=== PATIENT | female | born 1970 | race Caucasian/White ===

== ENCOUNTER 2016-05-31 17:35 | Emergency (ER) | payer OTHER ==
[2016-05-31] MEDS ORDERED: IBUPROFEN 600 MG TABLET (FP) PO ONE (18:36)
[2016-05-31 18:39] VITALS: BP 125/80; PULSE 107; TEMP 102.2; BMI 28.0
[2016-05-31] MEDS ORDERED: ACETAMINOPHEN 325 MG TABLET (FP) PO ONE (18:50)
--- NOTE | 2016-05-31 18:56 | PDOC ---
[id number] 4d COLD SYMPTOMS Time Seen by Provider: 05/31/16 18:36 History Source: Patient Exam Limitations: No Limitations - History of Present Illness Initial Comments: 05/31/16 18:52 45 yr female with body aches fever for 4 days, headache. Pt denies sore throat, denies abd pain or nausea, no diarrhea. Pt has history of ESBL urine infection. Pt states fever 102 not improving. Pt with dry cough . Pt has history of HTN, DVT with IVC filter in place. Pt denies leg pain or swelling. Pt denies flank or back pain 05/31/16 18:53 05/31/16 19:48 05/31/16 19:51 Timing/Duration: reports: week Severity: reports: moderate Episode Description: 3-4 days fever 102 body aches Possible Cause: Yes: occasional episodes Past History - Past Medical History Allergies/Adverse Reactions: Allergies Allergy/AdvReac Type Severity Reaction Status Date / Time No Known Allergies Allergy Verified 05/31/16 17:55 Home Medications: Ambulatory Orders Amlodipine Besylate [Norvasc -] 5 mg PO DAILY 04/07/16 Furosemide [Lasix -] 40 mg PO DAILY 04/07/16 Omeprazole 40 mg PO DAILY 04/07/16 Acetaminophen [Tylenol .Regular Strength -] 650 mg PO Q6H PRN #0 tablet Apixaban [Eliquis] 5 mg PO BID #60 tablet 04/14/16 Apixaban [Eliquis] 10 mg PO BID #4 tablet 04/14/16 Oxycodone HCl [Roxicodone -] 5 mg PO Q6H PRN #20 tablet MDD 20mg 04/14/16 Polyethylene Glycol 3350 [Miralax 119 gm Btl -] 17 gm PO DAILY #1 bottle Sennosides [Senna -] 2 tab PO HS #30 tablet 04/14/16 Nitrofurantoin Monohyd/M-Cryst [Macrobid -] 100 mg PO BID #14 capsule 05/31/16 GI Disorders: Yes (gastritis) HTN: Yes Other medical history: DVT - Surgical History Abdominal Surgery: Yes (liposuction, gastric bypass) - Family Disease History Comment:: 05/31/16 19:52 none relevant - Psycho/Social/Smoking Cessation Hx Suicidal Ideation: No Smoking History: Never smoked Hx Alcohol Use: No Respiratory Specific PMHX - Complaint Specific PMHX Angina: No Bronchitis: No Pneumonia: No Pulmonary Embolus: No TB (Tuberculosis): No Review of Systems - Review of Systems Able to Perform ROS?: Yes Is the patient limited Croatian proficient: No Constitutional: Yes: Symptoms Reported HEENTM: Yes: Symptoms Reported Respiratory: Yes: Symptoms reported. No: Hemoptysis Cardiac (ROS): No: Symptoms Reported ABD/GI: No: Symptoms Reported : No: Symptoms Reported Musculoskeletal: Yes: Symptoms Reported, See HPI Integumentary: No: Symptoms Reported *Physical Exam - Vital Signs Last Vital Signs Temp Pulse Resp BP Pulse Ox 102.2 F H 107 H 16 125/80 99 05/31/16 17:56 05/31/16 17:56 05/31/16 17:56 05/31/16 17:56 05/31/16 17:56 - Physical Exam General Appearance: Yes: Nourished, Appropriately Dressed HEENT: positive: EOMI, DEMAR, TMs Normal, Pharynx Normal, TM Erythema ( bilaterally ) Neck: positive: Supple. negative: Lymphadenopathy (R), Lymphadenopathy (L) Respiratory/Chest: positive: Lungs Clear, Normal Breath Sounds. negative: Chest Tender Cardiovascular: positive: Regular Rhythm, Regular Rate Gastrointestinal/Abdominal: positive: Normal Bowel Sounds, Soft Musculoskeletal: positive: Normal Inspection Extremity: positive: Normal Capillary Refill, Normal Inspection, Normal Range of Motion Integumentary: positive: Normal Color, Dry, Warm Neurologic: positive: Fully Oriented, Alert, Normal Mood/Affect, Normal Response , Motor Strength 5/5 ED Treatment Course - LABORATORY CBC & Chemistry Diagram: 05/31/16 19:30 05/31/16 19:30 - RADIOLOGY Radiology Studies Ordered: Category Date Time Status CHEST PA & LAT [RAD] Stat Radiology 05/31/16 18:50 Ordered Medical Decision Making - Medical Decision Making 05/31/16 18:55 cc: fever for 4 days body aches , chills, congestion will r/o flu labs, CXR , Urine Ekg done in triage NSR signed by Dr. Mackay possible left atria enlargement, no BRODIE 05/31/16 19:39 will get US to r/o DVT right leg urine positive will treat with zosyn here in ER (previous culture reviewed) 05/31/16 19:53 02/08/17 20:11 pt signed out to Mercedez Guy for continuation of care. pending labs, US, pt status *DC/Admit/Observation/Transfer Diagnosis at time of Disposition: Urinary tract infection Qualifiers: Urinary tract infection type: site unspecified Hematuria presence: without hematuria Qualified Code(s): N39.0 - Urinary tract infection, site not specified Dvt femoral (deep venous thrombosis) Qualifiers: Laterality: right Chronicity: chronic Qualified Code(s): I82.511 - Chronic embolism and thrombosis of right femoral vein - Discharge Dispostion Disposition: HOME Condition at time of disposition: Stable - Prescriptions Prescriptions: Nitrofurantoin Monohyd/M-Cryst [Macrobid -] 100 mg PO BID #14 capsule - Referrals Referrals: Pradeep Overton MD [Primary Care Provider] - - Patient Instructions Printed Discharge Instructions: DI for Deep Vein Thrombosis, DI for Urinary Tract Infection (UTI) Additional Instructions: Please continue using your Lovenox injections. Please take medications as prescribed. As discussed please bring the ultrasound report to your physician for further discussion of your DVT therapy. If you experience shortness of breath, chest pain, headache, palpitations, or any new or worsening symptoms please return to the ER immediately.
[2016-05-31] MEDS ORDERED: ACETAMINOPHEN 325 MG TABLET (FP) ONE (19:04)
[2016-05-31 19:29] LABS: URINE APPEARANCE CLEAR; URINE BILIRUBIN NEGATIVE (NEGATIVE); URINE COLOR LTYELLOW; URINE GLUCOSE (UA) NEGATIVE (NEGATIVE); URINE KETONE NEGATIVE (NEGATIVE); URINE NITRITE NEGATIVE (NEGATIVE); URINE UROBILINOGEN 4.0 E.U/dl E.U./dl (0.2-1.0)
[2016-05-31 19:30] LABS: URINE BLOOD 1+ (NEGATIVE); URINE PROTEIN 1+ (NEGATIVE)
[2016-05-31 19:31] LABS: URINE LEUK ESTERASE 2+ (NEGATIVE)
[2016-05-31 19:39] LABS: URINE BACTERIA MODERATE /hpf (NONE SEEN); URINE MUCUS RARE; URINE RBC 1 /hpf (0-3); URINE WBC 65 /hpf (3-5); YEAST RARE
[2016-05-31 19:41] LABS: BASOPHIL 0.6 % (0-2.0); MCH 25.4 pg (25.7-33.7); MCHC 32.6 g/dl (32.0-36.0); MEAN CELL VOLUME 77.8 fl (80-96); MEAN PLT VOLUME 8.1 fl (7.5-11.1); PLATELET COUNT 218 K/MM3 (134-434); RDW 17.6 % (11.6-15.6)
[2016-05-31] MEDS ORDERED: NITROFURANTOIN MACROCRYSTAL 50 MG CAPSULE (FP) PO SCH (19:45)
[2016-05-31 19:56] LABS: INR 1.14 (0.82-1.09); PROTHROMBIN TIME (PATIENT) 12.6 SEC (9.98-11.88)
[2016-05-31 19:58] LABS: ACTIVATED PTT 36.9 SECONDS (26.9-34.4)
[2016-05-31] MEDS ORDERED: SODIUM CHLORIDE 1,000 ML IV STA (20:10)
[2016-05-31] MEDS ORDERED: PIPERACILLIN/TAZOB 4.5 GM/100 ML PRE-DOCKED IVPB ONE (20:11)
[2016-05-31 20:15] LABS: ALBUMIN 3.3 g/dl (3.4-5.0); ANION GAP 9 (8-16); BILIRUBIN,TOTAL 0.5 mg/dL (0.2-1.0); CO2 24 mmol/L (21-32); CREATININE 1.3 mg/dL (0.55-1.02); GLUCOSE,RANDOM 113 mg/dL (74-106); SGOT/AST 10 U/L (15-37); SGPT/ALT 20 U/L (12-78); TOT PROT 7.3 g/dl (6.4-8.2)
[2016-05-31 20:18] LABS: ALK PHOS 79 U/L (45-117); TROPONIN I < 0.02 ng/ml (0.00-0.05)
[2016-05-31] MEDS ORDERED: ONDANSETRON *ODT* 4 MG TABLET SL ONE (21:45)
[2016-05-31] MEDS ORDERED: ONDANSETRON *ODT* 4 MG TABLET ONE (21:51)
--- NOTE | 2016-05-31 22:22 | PDOC ---
*Physical Exam - Vital Signs Last Vital Signs Temp Pulse Resp BP Pulse Ox 102.2 F H 107 H 16 125/80 99 05/31/16 17:56 05/31/16 17:56 05/31/16 17:56 05/31/16 17:56 05/31/16 17:56 - Physical Exam Comments: 05/31/16 22:16 Sign-out received from outgoing ER provider Isael. Pt interviewed and examined. Ancillary studies reviewed. Zosyn administered. Patient felt nauseous. Zofran 4 mg ODT given. Vascular study indicates right femoral DVT. Discussed case with ED attending Marito. Patient is already on Lovenox. Will discharge to home with close follow up with PMD for further evaluation of anticoagulant therapy. Kidney ultrasound negative. ED Treatment Course - LABORATORY CBC & Chemistry Diagram: 05/31/16 19:30 05/31/16 19:30 - ADDITIONAL ORDERS Additional order review: Laboratory Results 05/31/16 05/31/16 05/31/16 19:30 19:30 19:30 INR 1.14 PTT (Actin FS) 36.9 H Sodium 134 L Potassium 3.5 Chloride 101 Carbon Dioxide 24 Anion Gap 9 BUN 7 Creatinine 1.3 H D Creat Clearance w eGFR 44.70 Random Glucose 113 H D Lactic Acid 1.570 Calcium 9.0 Total Bilirubin 0.5 D AST 10 L D ALT 20 D Alkaline Phosphatase 79 D Creatine Kinase 45 Troponin I < 0.02 Total Protein 7.3 Albumin 3.3 L D Urine Color Urine Appearance Urine pH Ur Specific [place] Urine Protein Urine Glucose (UA) Urine Ketones Urine Blood Urine Nitrite Urine Bilirubin Urine Urobilinogen Ur Leukocyte Esterase Urine RBC Urine WBC Ur Epithelial Cells Urine Bacteria Urine Mucus Urine Yeast Urine HCG, Qual 05/31/16 19:10 INR PTT (Actin FS) Sodium Potassium Chloride Carbon Dioxide Anion Gap BUN Creatinine Creat Clearance w eGFR Random Glucose Lactic Acid Calcium Total Bilirubin AST ALT Alkaline Phosphatase Creatine Kinase Troponin I Total Protein Albumin Urine Color Ltyellow Urine Appearance Clear Urine pH 6.0 Ur Specific [place] 1.011 Urine Protein 1+ H Urine Glucose (UA) Negative Urine Ketones Negative Urine Blood 1+ H Urine Nitrite Negative Urine Bilirubin Negative Urine Urobilinogen 4.0 e.u/dl H Ur Leukocyte Esterase 2+ H Urine RBC 1 Urine WBC 65 Ur Epithelial Cells Rare Urine Bacteria Moderate Urine Mucus Rare Urine Yeast Rare Urine HCG, Qual Negative 05/31/16 18:49 Influenza Types A,B Antigen (ALEXI) - Final Nasopharyngeal Swab - Final 05/31/16 19:30 RBC 4.27 D MCV 77.8 L MCHC 32.6 RDW 17.6 H MPV 8.1 Neutrophils % 86.0 H D Lymphocytes % 7.2 L D Monocytes % 6.2 Eosinophils % 0.0 D Basophils % 0.6 - Medications Given in the ED: ED Medications Discontinued Medications Generic Name Dose Route Start Last Admin Trade Name Nixon PRN Reason Stop Dose Admin Acetaminophen 975 mg 05/31/16 18:50 05/31/16 19:07 Tylenol - PO 05/31/16 18:51 975 mg ONCE ONE Administration Sodium Chloride 1,000 mls @ 1,000 mls/hr 05/31/16 20:10 05/31/16 21:12 Normal Saline - IV 05/31/16 21:09 1,000 mls/hr ASDIR STA Administration Ibuprofen 800 mg 05/31/16 18:36 05/31/16 19:07 Motrin - PO 05/31/16 18:37 Not Given ONCE ONE Ondansetron HCl 4 mg 05/31/16 21:45 05/31/16 21:53 Zofran Odt - SL 05/31/16 21:46 4 mg ONCE ONE Administration Piperacillin Sod/Tazobactam Sod 4.5 gm 05/31/16 20:11 05/31/16 21:51 Zosyn 4.5gm Ivpb (Pre-Docked) IVPB 05/31/16 20:12 4.5 gm ONCE ONE Administration *DC/Admit/Observation/Transfer Diagnosis at time of Disposition: Urinary tract infection Qualifiers: Urinary tract infection type: site unspecified Hematuria presence: without hematuria Qualified Code(s): N39.0 - Urinary tract infection, site not specified Dvt femoral (deep venous thrombosis) Qualifiers: Laterality: right Chronicity: chronic Qualified Code(s): I82.511 - Chronic embolism and thrombosis of right femoral vein - Discharge Dispostion Disposition: HOME Condition at time of disposition: Stable Admit: No - Prescriptions Prescriptions: Nitrofurantoin Monohyd/M-Cryst [Macrobid -] 100 mg PO BID #14 capsule - Referrals Referrals: Pradeep Overton MD [Primary Care Provider] - - Patient Instructions Printed Discharge Instructions: DI for Urinary Tract Infection (UTI), DI for Deep Vein Thrombosis Additional Instructions: Please continue using your Lovenox injections. Please take medications as prescribed. As discussed please bring the ultrasound report to your physician for further discussion of your DVT therapy. If you experience shortness of breath, chest pain, headache, palpitations, or any new or worsening symptoms please return to the ER immediately.
--- NOTE | 2016-06-01 10:33 | EKG ---
Test Reason : Blood Pressure : / mmHG Vent. Rate : 103 BPM Atrial Rate : 103 BPM P-R Int : 144 ms QRS Dur : 074 ms QT Int : 318 ms P-R-T Axes : 022 000 031 degrees QTc Int : 416 ms SINUS TACHYCARDIA POSSIBLE LEFT ATRIAL ENLARGEMENT BORDERLINE ECG WHEN COMPARED WITH ECG OF 08-APR-2016 00:34, NO SIGNIFICANT CHANGE WAS FOUND Confirmed by HIEU ANDREWS MD ([id number]) on 06/01/2016 10:32:49 AM Referred By: Confirmed By:HIEU ANDREWS MD
== END 2016-05-31 22:28 | disposition home or self-care (01) ==
LOC: JERFT 17:35 → JER 17:35 → JERFT 22:28
PROC: 3E03329 Introduction of Other Anti-infective into Peripheral Vein, Percutaneous Approach (ICD-10-PCS; principal; 2016-05-31)
PROC: 3E0337Z Introduction of Electrolytic and Water Balance Substance into Peripheral Vein, Percutaneous Approach (ICD-10-PCS; 2016-05-31)
DX: N39.0 Urinary tract infection, site not specified (principal); I82.511 Chronic embolism and thrombosis of right femoral vein; K29.70 Gastritis, unspecified, without bleeding; I10 Essential (primary) hypertension
CPT/HCPCS: 36415; 71020-TC; 76775-TC; 80053; 81003; 81015; 82550; 83605; 84484; 84703; 85025; 85610; 85730; 87040; 87086; 87186; 87804; 93005; 93010; 93971-TC; 96361; 96374; 99281-25

== ENCOUNTER 2016-09-07 16:06 | Inpatient (IN) | payer OTHER ==
[2016-09-07 20:11] LABS: BASOPHIL 0.4 % (0-2.0); EOSINOPHIL 0.1 % (0-4.5); MCH 27.3 pg (25.7-33.7); MCHC 32.6 g/dl (32.0-36.0); MEAN CELL VOLUME 83.7 fl (80-96); MEAN PLT VOLUME 8.5 fl (7.5-11.1); PLATELET COUNT 246 K/MM3 (134-434); RDW 17.4 % (11.6-15.6); WHITE BLOOD COUNT 15.2 K/mm3 (4.0-10.0)
[2016-09-07] MEDS ORDERED: IMIPENEM/CILASTATIN SODIUM 500 MG in SODIUM CHLORIDE 100 ML IV ONE (20:17)
--- NOTE | 2016-09-07 20:17 | PDOC ---
History of Present Illness - History of Present Illness Initial Comments: 09/07/16 20:19 46 yo F with h/o CHF, HTN on amlodipine an CHF here c/o burning on urination dysuria and fever 105 pt was seen in ED 2 days ago and given macrobid for UTI. has been taking as prescribed. no n/v no other complaints. pt is allergic to penicillin causes hives. no other complaints. does have mild sob. 09/07/16 20:20 <Janeen Cordero - Last Filed: 09/07/16 23:09> <Elayne Aceves - Last Filed: 09/08/16 00:39> - General Chief Complaint: SIRS, Suspected/Possible Stated Complaint: FEVER Past History - Past Medical History GI Disorders: Yes (gastritis) HTN: Yes - Surgical History Abdominal Surgery: Yes (liposuction, gastric bypass) - Immunization History Immunization Up to Date: Yes - Psycho/Social/Smoking Cessation Hx Suicidal Ideation: No Smoking History: Never smoked Hx Alcohol Use: No Drug/Substance Use Hx: No <Janeen Cordero - Last Filed: 09/07/16 23:09> <Elayne Aceves - Last Filed: 09/08/16 00:39> - Past Medical History Allergies/Adverse Reactions: Allergies Allergy/AdvReac Type Severity Reaction Status Date / Time Penicillins Allergy Verified 09/07/16 16:37 Home Medications: Ambulatory Orders Amlodipine Besylate [Norvasc -] 5 mg PO DAILY 04/07/16 Furosemide [Lasix -] 20 mg PO DAILY 04/07/16 Omeprazole 40 mg PO DAILY 04/07/16 Apixaban [Eliquis] 5 mg PO DAILY 09/07/16 Nitrofurantoin Monohyd/M-Cryst [Macrobid -] 100 mg PO DAILY 09/07/16 Review of Systems - Review of Systems Constitutional: Yes: Chills, Fever. No: Loss of Appetite, Night Sweats, Weakness Respiratory: Yes: Shortness of Breath. No: Cough Cardiac (ROS): No: Chest Pain, Edema ABD/GI: No: Abdominal Distended : Yes: Dysuria, Frequency, Flank Pain Musculoskeletal: Yes: Back Pain Neurological: No: See HPI, Headache, Numbness All Other Systems: Reviewed and Negative <Janeen Cordero - Last Filed: 09/07/16 23:09> *Physical Exam - Vital Signs Last Vital Signs Temp Pulse Resp BP Pulse Ox 99.5 F 96 H 20 123/83 98 09/07/16 16:37 09/07/16 16:37 09/07/16 16:37 09/07/16 16:37 09/07/16 19:59 - Physical Exam General Appearance: Yes: Nourished HEENT: positive: DEMAR, Normal ENT Inspection Neck: positive: Trachea midline. negative: Tender Respiratory/Chest: positive: Lungs Clear, Normal Breath Sounds Cardiovascular: positive: Regular Rhythm, Regular Rate, S1, S2. negative: Edema , JVD, Murmur Gastrointestinal/Abdominal: positive: Normal Bowel Sounds, Tender, Other ( suprapubic ttp) Musculoskeletal: positive: CVA Tenderness Extremity: positive: Normal Capillary Refill, Normal Inspection Integumentary: positive: Normal Color, Dry, Warm Neurologic: positive: Fully Oriented, Alert, Normal Mood/Affect Deep Tendon Reflexes: Ankle (L): 2+, Ankle (R): 2+ <Janeen Cordero - Last Filed: 09/07/16 23:09> - Vital Signs Last Vital Signs Temp Pulse Resp BP Pulse Ox 100.5 F H 78 16 117/76 99 09/07/16 23:52 09/07/16 23:52 09/07/16 23:52 09/07/16 23:52 09/07/16 23:52 <Elayne Aceves - Last Filed: 09/08/16 00:39> Heart Score/ECG Review #1 09/08/16 00:39 Normal sinus rhythm at 81 bpm Normal ECG <Elayne Aceves - Last Filed: 09/08/16 00:39> ED Treatment Course - LABORATORY CBC & Chemistry Diagram: 09/07/16 19:40 09/07/16 19:40 <Janeen Cordero - Last Filed: 09/07/16 23:09> - LABORATORY CBC & Chemistry Diagram: 09/07/16 19:40 09/07/16 19:40 - ADDITIONAL ORDERS Additional order review: Laboratory Results 09/07/16 09/07/16 09/07/16 21:07 19:40 19:01 Sodium 136 Potassium 3.3 L Chloride 100 Carbon Dioxide 27 Anion Gap 9 BUN 7 Creatinine 1.4 H Creat Clearance w eGFR 40.85 Random Glucose 111 H Lactic Acid 0.876 Calcium 8.4 L Total Bilirubin 0.5 AST 16 D ALT 37 D Alkaline Phosphatase 130 H D Total Protein 6.8 Albumin 2.8 L Urine Color Urine Appearance Urine pH Ur Specific [place] Urine Protein Urine Glucose (UA) Urine Ketones Urine Blood Urine Nitrite Urine Bilirubin Urine Urobilinogen Ur Leukocyte Esterase Urine RBC Urine WBC Ur Epithelial Cells Urine Bacteria Urine Mucus Urine HCG, Qual Negative 09/07/16 19:01 Sodium Potassium Chloride Carbon Dioxide Anion Gap BUN Creatinine Creat Clearance w eGFR Random Glucose Lactic Acid Calcium Total Bilirubin AST ALT Alkaline Phosphatase Total Protein Albumin Urine Color Straw Urine Appearance Clear Urine pH 7.0 Ur Specific [place] 1.010 Urine Protein 1+ H Urine Glucose (UA) Negative Urine Ketones Negative Urine Blood 2+ H Urine Nitrite Negative Urine Bilirubin Negative Urine Urobilinogen 2.0 e.u/dl H Ur Leukocyte Esterase Trace H D Urine RBC 1 Urine WBC 5 Ur Epithelial Cells Rare Urine Bacteria Rare Urine Mucus Rare Urine HCG, Qual 09/07/16 19:40 RBC 4.50 MCV 83.7 MCHC 32.6 RDW 17.4 H MPV 8.5 Neutrophils % 76.0 Lymphocytes % 6.4 L Monocytes % 17.1 H D Eosinophils % 0.1 D Basophils % 0.4 - Medications Given in the ED: ED Medications Discontinued Medications Generic Name Dose Route Start Last Admin Trade Name Nixon PRN Reason Stop Dose Admin Acetaminophen 1,000 mg 09/07/16 22:35 09/07/16 22:35 Ofirmev Injection - IVPB 09/07/16 22:36 1,000 mg ONCE ONE Administration Imipenem/Cilastatin Sodium 500 100 mls @ 100 mls/hr 09/07/16 20:17 09/07/16 20: 17 mg/ Sodium Chloride IV 09/07/16 21:16 100 mls/hr ONCE ONE Administration Protocol <Elayne Aceves - Last Filed: 09/08/16 00:39> Medical Decision Making - Medical Decision Making 09/07/16 20:14 46 yo F wit h/o recent UTI, on macrobid for 48 hours, here with persistant uti symtpoms, dysuria and frequency. did have fever today 105, no n/v no vaginal discharge. review of culture pt is resistant to macrobid. and several other antiobiotics. on exam awake alert, lungs clear. heart regular no m/r/g. abd soft no rebound or guarding mild suprapubic ttp. plan: r/o sepsis, bactermia, pt will have to be admitted for high urinary resistance. plan ua cultrures cbc cmp culturesl <Janeen Cordero - Last Filed: 09/07/16 23:09> *DC/Admit/Observation/Transfer - Discharge Dispostion Admit: Yes <Janeen Cordero - Last Filed: 09/07/16 23:09> <Elayne Aceves - Last Filed: 09/08/16 00:39> Diagnosis at time of Disposition: Sepsis - Referrals
[2016-09-07 20:44] LABS: ALBUMIN 2.8 g/dl (3.4-5.0); BILIRUBIN,TOTAL 0.5 mg/dL (0.2-1.0); CALCIUM 8.4 mg/dL (8.5-10.1); COCKROFT - GAULT 67.9235; CREATININE 1.4 mg/dL (0.55-1.02); TOT PROT 6.8 g/dl (6.4-8.2)
[2016-09-07 20:54] LABS: URINE APPEARANCE CLEAR; URINE BILIRUBIN NEGATIVE (NEGATIVE); URINE COLOR STRAW; URINE GLUCOSE (UA) NEGATIVE (NEGATIVE); URINE KETONE NEGATIVE (NEGATIVE); URINE NITRITE NEGATIVE (NEGATIVE); URINE UROBILINOGEN 2.0 E.U/dl E.U./dl (0.2-1.0)
--- NOTE | 2016-09-07 21:04 | PN ---
<Nina Vickers - Last Filed: 09/07/16 21:04> Teaching Attending Note Name of Resident: Alberto Lovell <Kathrin Mathews - Last Filed: 09/20/16 21:15> Teaching Attending Note ATTENDING PHYSICIAN STATEMENT I saw and evaluated the patient. I reviewed the resident's note and discussed the case with the resident. I agree with the resident's findings and plan as documented. SUBJECTIVE: 46 yo F with PMhx of recent UTI (on Macrobid for 48 hours) who presents with dysuria, and fever (Tmax 105). Patient complains of increased frequency and increased discomfort with associated slight back pain. Patient was seen in the ED 2 days ago and was evaluated for the same complaints. Patient was treated with Macrobid however returned due to progressively worsening dysuria. As per Chart, previous UA on 09/05/2016 revealed ESBL. PMHx:CHF, HTN on amlodipine, Gastritis PSHx: Liposuction and Gastric bypass Social hx: None Allergies: Penicillins OBJECTIVE: Last Vital Signs Temp Pulse Resp BP Pulse Ox 98.8 F 64 16 109/66 99 09/08/16 00:48 09/08/16 00:48 09/08/16 03:00 09/08/16 00:48 09/08/16 03:00 GENERAL: Awake, alert, and fully oriented, in no acute distress HEENT: Atraumatic. PERRLA, EOMI. Moist mucosa. No JVD LUNGS: No distress, speaks full sentences, clear to auscultation bilaterally HEART: Regular rate and rhythm, normal S1 and S2, no murmurs, rubs or gallops, peripheral pulses normal and equal bilaterally. ABDOMEN: Soft, nontender, normoactive bowel sounds. No guarding, no rebound. No masses EXTREMITIES: Normal inspection, Normal range of motion, no edema. No clubbing or cyanosis. NEUROLOGICAL: Cranial nerves II through XII grossly intact. Normal speech, normal gait, no focal sensorimotor deficits SKIN: Warm, Dry, normal turgor, no rashes or lesions noted. CBCD WBC 15.2 K/mm3 (4.0-10.0) H D 09/07/16 19:40 RBC 4.50 M/mm3 (3.60-5.2) 09/07/16 19:40 Hgb 12.3 GM/dL (10.7-15.3) D 09/07/16 19:40 Hct 37.6 % (32.4-45.2) 09/07/16 19:40 MCV 83.7 fl (80-96) 09/07/16 19:40 MCHC 32.6 g/dl (32.0-36.0) 09/07/16 19:40 RDW 17.4 % (11.6-15.6) H 09/07/16 19:40 Plt Count 246 K/MM3 (134-434) 09/07/16 19:40 MPV 8.5 fl (7.5-11.1) 09/07/16 19:40 CMP Sodium 136 mmol/L (136-145) 09/07/16 19:40 Potassium 3.3 mmol/L (3.5-5.1) L 09/07/16 19:40 Chloride 100 mmol/L (98-107) 09/07/16 19:40 Carbon Dioxide 27 mmol/L (21-32) 09/07/16 19:40 Anion Gap 9 (8-16) 09/07/16 19:40 BUN 7 mg/dL (7-18) 09/07/16 19:40 Creatinine 1.4 mg/dL (0.55-1.02) H 09/07/16 19:40 Creat Clearance w eGFR 40.85 (>60) 09/07/16 19:40 Calcium 8.4 mg/dL (8.5-10.1) L 09/07/16 19:40 Total Bilirubin 0.5 mg/dL (0.2-1.0) 09/07/16 19:40 AST 16 U/L (15-37) D 09/07/16 19:40 ALT 37 U/L (12-78) D 09/07/16 19:40 Alkaline Phosphatase 130 U/L (45-117) H D 09/07/16 19:40 Total Protein 6.8 g/dl (6.4-8.2) 09/07/16 19:40 Albumin 2.8 g/dl (3.4-5.0) L 09/07/16 19:40 ASSESSMENT AND PLAN: Admitted for Sepsis Secondary to MDR pyelonephritis/UTI Pt given ertapenem in the ED Continue with ertapenem Follow ID consult in the AM IVF Zofran PRN for nausea Continue home meds Contact precaution for ESBL in urine. Documentation prepared by Kathrin Mathews, acting as medical billing specialist for Nina Vickers MD.
[2016-09-07 21:22] LABS: URINE BLOOD 2+ (NEGATIVE); URINE LEUK ESTERASE TRACE (NEGATIVE); URINE PROTEIN 1+ (NEGATIVE)
[2016-09-07 22:18] LABS: URINE BACTERIA RARE /hpf (NONE SEEN); URINE MUCUS RARE; URINE RBC 1 /hpf (0-3); URINE WBC 5 /hpf (3-5)
[2016-09-07] MEDS ORDERED: ACETAMINOPHEN 1000 MG/100 ML VIAL (NON FORMULARY) IVPB ONE (22:35)
[2016-09-07] MEDS ORDERED: ACETAMINOPHEN INJECTION 100 ML IVPB ONE (22:47)
[2016-09-08] MEDS ORDERED: POTASSIUM CHLORIDE ORAL LIQUID 20 MEQ/15 ML PO ONE (00:40)
[2016-09-08] MEDS ORDERED: ONDANSETRON 4 MG/2 ML VIAL IVPUSH PRN (00:51)
--- NOTE | 2016-09-08 00:53 | HP ---
CHIEF COMPLAINT: Fever PCP: Dr Pradeep Lee HISTORY OF PRESENT ILLNESS: 46 year old female with pmh of HTN, CHF, Gastritis, DVT right lower ext in 2015 on eliquis, IVC filter , Recurrent UTI, ESBL UTI, recent discharged from ED 2 days ago for UTI with Macrobid now presents for for unresolving symptoms and fever. ON Sunday, the patient started to have fever, chills, fatigue, weakness, myalgia, arthralgia, nausea, vomiting , anorexia, dizziness , headache , non productive cough. yesterday, patient started to have diffuse chest pain, tightness, pressure, 8/10 intermittent, lasting 2mn, non radiating, not changed by position, deep breath or cough, but per daughter it is increased by deep breath and cough. Pt vomiting once today, food like fluid, tinged of blood, non bilious fluid. Denies abdominal pain today but has severe suprapubic pain, cramping 2 days ago. Pt denies dysuria but has increase frequency and urgency, no hematuria, no odor, no vaginal bleed or discharge. Pt aslo complained of chronic orthopnea, dyspnea on exertion even walking up on flight of stairs and occasional lower extremity edema but does not have these symptoms right now. ER course was notable for: (1) WBC 15, Blood culture, urine culture (2) Imipinem (3) CXR Recent Travel: none PAST MEDICAL HISTORY: HTN, CHF, Gastritis, DVT right lower ext in 03/2016 on eliquis, IVC filter, Recurrent UTI, ESBL UTI PAST SURGICAL HISTORY: Gastric Bypass, IVC filter, Cometic surgery, Neck surgery, 3 C sections, left foot surgery Social History: Smoking: none Alcohol:none Drugs: None Lives with daughter Family History: Mother : stomach cancer, CHF, HTN Allergies Penicillins Allergy (Verified 09/07/16 16:37) HOME MEDICATIONS: Home Medications Medication Instructions Recorded Amlodipine Besylate [Norvasc -] 5 mg PO DAILY 04/07/16 Furosemide [Lasix -] 20 mg PO DAILY 04/07/16 Omeprazole 40 mg PO DAILY 04/07/16 Apixaban [Eliquis] 5 mg PO DAILY 09/07/16 Nitrofurantoin Monohyd/M-Cryst 100 mg PO DAILY 09/07/16 [Macrobid -] REVIEW OF SYSTEMS CONSTITUTIONAL: fever, chills, diaphoresis, generalized weakness, malaise, loss of appetite Absent:weight change HEENT: Absent: rhinorrhea, nasal congestion, throat pain, throat swelling, difficulty swallowing, mouth swelling, ear pain, eye pain, visual changes CARDIOVASCULAR: chest pain Absent: , syncope, palpitations, irregular heart rate, lightheadedness, peripheral edema RESPIRATORY: cough, Absent: shortness of breath, dyspnea with exertion, orthopnea, wheezing, stridor , hemoptysis GASTROINTESTINAL: supra pubic abdominal pain, nausea, vomiting, constipation Absent: , abdominal distension, , diarrhea, melena, hematochezia GENITOURINARY: frequency, urgency Absent: dysuria, , hesitancy, hematuria, flank pain, genital pain MUSCULOSKELETAL: myalgia, arthralgia Absent: joint swelling, back pain, neck pain SKIN: Absent: rash, itching, pallor HEMATOLOGIC/IMMUNOLOGIC: Absent: easy bleeding, easy bruising, lymphadenopathy, frequent infections ENDOCRINE: Absent: unexplained weight gain, unexplained weight loss, heat intolerance, cold intolerance NEUROLOGIC: Absent: headache, focal weakness or paresthesias, dizziness, unsteady gait, seizure, mental status changes, bladder or bowel incontinence PSYCHIATRIC: Absent: anxiety, depression, suicidal or homicidal ideation, hallucinations. PHYSICAL EXAMINATION Vital Signs - 24 hr 09/07/16 23:52 Temperature 100.5 F H Pulse Rate [ 78 Left] Respiratory 16 Rate Blood Pressure 117/76 [Left] O2 Sat by Pulse 99 Oximetry (%) GENERAL: Awake, alert, and fully oriented, in no acute distress. HEAD: Normal with no signs of trauma. EYES: Pupils equal, round and reactive to light, extraocular movements intact, sclera anicteric, conjunctiva clear. No lid lag. EARS, NOSE, THROAT: Ears normal, nares patent, oropharynx clear without exudates. Moist mucous membranes. NECK: Normal range of motion, supple without lymphadenopathy, JVD, or masses. LUNGS: Breath sounds equal, clear to auscultation bilaterally. No wheezes, and no crackles. No accessory muscle use. HEART: Regular rate and rhythm, normal S1 and S2 without murmur, rub or gallop. Anterior chest wall tenderness ABDOMEN: Soft, supra pubic tenderness, not distended, normoactive bowel sounds, no guarding, no rebound, no masses. No hepatomegaly or splenomegaly. MUSCULOSKELETAL: Normal range of motion at all joints. No bony deformities or tenderness. Right CVA tenderness. UPPER EXTREMITIES: 2+ pulses, warm, well-perfused. No cyanosis. No clubbing. No peripheral edema. LOWER EXTREMITIES: 2+ pulses, warm, well-perfused. No calf tenderness. No peripheral edema. NEUROLOGICAL: Cranial nerves II-XII intact. Normal speech. Normal gait. PSYCHIATRIC: Cooperative. Good eye contact. Appropriate mood and affect. SKIN: Warm, dry, normal turgor, no rashes or lesions noted, normal capillary refill. CBC, BMP 09/07/16 19:40 09/07/16 19:40 Laboratory Tests 09/07/16 09/07/16 19:01 19:40 Creat Clearance w eGFR 40.85 Calcium 8.4 L Alkaline Phosphatase 130 H D Albumin 2.8 L Urine Protein 1+ H Urine Blood 2+ H Urine Nitrite Negative Urine Urobilinogen 2.0 e.u/dl H Ur Leukocyte Esterase Trace H D Urine WBC 5 ASSESSMENT/PLAN: 46 year old female with pmh of HTN, CHF, Gastritis, DVT right lower ext in 2015 on eliquis, IVC filter , Recurrent UTI, ESBL UTI, recent discharged from ED 2 days ago for UTI with Macrobid now presents for for unresolving symptoms and fever Sepsis from UTI with possible pyelonephritis WBC 15.2, HR 96, temp 100.8 Urine positive for regulo est right CVA tenderness, suprapubic tenderness Sent home from Ed 2 days ago with Macrobid for UTI History of recurrent UTI with ESBL sensitive to carbepenems received Imipinem in ED Still start ertapenem IV fluid with NS at 83ml/h Zofran 4mg q4h prn US renal ID consult for Dr Linda Atypical Chest pain r/o ACS, most likely Costochondritis EKG was normal sinus rhythm, no ST-Twave abnormalities cardiac profile now and in am Consider ekg in am aspirin 325 Po once Tylenol 650mg PO prn q4h STEPHANIE most likely due to dehydration, vomiting and poor feeding in last few days Cr 1.4, baseline 1 BMP in am IV fluid NS at 83ml/h urine sodium urine creatine urine lytes Hypokalemia K3.3 KCl 40 meq po now BMP in am Magnesium Gastritis, GERD Famotidine 20mg IV once Protonix 40mg Po daily Maalox prn URI Viral Syndrome Robutussin PRN Acetaminophen PRN Zofran IV PRN NS at 100ml/h H/o of DVT in right lower ext and s/p IVC filter On Eliquis, will continue Coag in am CHF Pt denies knowledge of CHF but is on lasix at home CXR Will hold lasix for now, will resume once euvolemia is achieved HTN Resume Norvasc FEN Fluid: NS at 83ml/h Electrolytes: repleted Nutrition: Cardiac diet DVT prophylaxs: Eliquis Disposition: Admit to [facility] Visit type - Emergency Visit Emergency Visit: Yes ED Registration Date: 09/07/16 Care time: The patient presented to the Emergency Department on the above date and was hospitalized for further evaluation of their emergent condition. - New Patient This patient is new to me today: Yes Date on this admission: 09/08/16 - Critical Care Critical Care patient: No
[2016-09-08 01:00] VITALS: BMI 27.8
[2016-09-08] MEDS ORDERED: guaiFENesin/D-M SUGAR-FREE/ACLHOL-FREE 118 ML BOTTLE PO PRN (01:05)
[2016-09-08] MEDS: SODIUM CHLORIDE 1,000 ML IV SCH ×2 (01:25→17:37)
[2016-09-08] MEDS ORDERED: MAG HYDROX/AL HYDROX/SIMETH 30 ML UNIT-DOSE CUP PO PRN (01:28)
[2016-09-08] MEDS ORDERED: ASPIRIN 81 MG CHEWABLE TABLETS PO ONE (01:30)
[2016-09-08] MEDS ORDERED: FAMOTIDINE 20 MG/50 ML IVPB 50 ML IVPB ONE (01:31)
[2016-09-08] MEDS ORDERED: guaiFENesin/D-METHORPHAN HB 10 ML UNIT-DOSE CUPS PO PRN (01:35)
[2016-09-08] MEDS: ERTAPENEM SODIUM 1 GM/50 ML PRE-DOCKED IVPB SCH ×2 (02:23→10:55)
[2016-09-08] MEDS: APIXABAN 5 MG TABLET PO SCH ×3 (02:23→22:05)
[2016-09-08 03:21] LABS: MAGNESIUM 2.3 mg/dL (1.8-2.4); PHOSPHOROUS 2.6 mg/dL (2.5-4.9)
[2016-09-08 03:25] LABS: TROPONIN I < 0.02 ng/ml (0.00-0.05)
[2016-09-08 07:21] LABS: MCH 28.1 pg (25.7-33.7); MCHC 33.2 g/dl (32.0-36.0); MEAN CELL VOLUME 84.7 fl (80-96); MEAN PLT VOLUME 8.6 fl (7.5-11.1); PLATELET COUNT 225 K/MM3 (134-434); WHITE BLOOD COUNT 11.3 K/mm3 (4.0-10.0)
[2016-09-08 07:37] LABS: CALCIUM 8.1 mg/dL (8.5-10.1)
[2016-09-08 07:38] LABS: COCKROFT - GAULT 80.9625; CREATININE 1.2 mg/dL (0.55-1.02); INR 1.54 (0.82-1.09); PROTHROMBIN TIME (PATIENT) 17.1 SEC (9.98-11.88)
[2016-09-08 07:41] LABS: ACTIVATED PTT 34.3 SECONDS (26.9-34.4)
[2016-09-08 07:43] LABS: TROPONIN I < 0.02 ng/ml (0.00-0.05)
[2016-09-08] MEDS: amLODIPine BESYLATE 5 MG TABLET (FP) PO SCH (09:22)
[2016-09-08] MEDS: ACETAMINOPHEN 325 MG TABLET (FP) PO PRN ×2 (09:23→17:38)
[2016-09-08] MEDS: PANTOPRAZOLE 40 MG TABLET (FP) PO SCH (09:23)
--- NOTE | 2016-09-08 13:43 | PN ---
Progress Note (short form) - Note Progress Note: ID Full note dictated Dose of Ertepenem Subjective improvement Selected Entries 09/08/16 09:59 Temperature 98.9 F Pulse Rate 73 Respiratory 20 Rate Blood Pressure 120/90 Microbiology 09/05/16 12:30 Urine - Urine Clean Catch Urine Culture - Final Escherichia Coli Esbl [facility] [employer] 05/31/16 19:10 Urine - Urine Clean Catch Urine Culture - Final Escherichia Coli Esbl [facility] [employer] [facility] Laboratory Tests 09/07/16 09/07/16 09/07/16 19:01 19:40 19:40 WBC 15.2 H D BUN 7 Creatinine 1.4 H Creat Clearance w eGFR 40.85 Total Bilirubin 0.5 AST 16 D ALT 37 D Alkaline Phosphatase 130 H D Ur Leukocyte Esterase Trace H D Urine RBC 1 Urine WBC 5 09/08/16 09/08/16 05:35 05:35 WBC 11.3 H BUN 8 Creatinine 1.2 H Creat Clearance w eGFR Total Bilirubin AST ALT Alkaline Phosphatase Ur Leukocyte Esterase Urine RBC Urine WBC Assessment UTI MDRO Plan Contact isolation Ertepenem few days Consider Fosfomycin 3 grams dose Fred LEVINE Problem List - Problems (1) Urinary tract infection Code(s): N39.0 - URINARY TRACT INFECTION, SITE NOT SPECIFIED Qualifiers: Urinary tract infection type: site unspecified Hematuria presence: without hematuria Qualified Code(s): N39.0 - Urinary tract infection, site not specified (2) Infection with multi-drug resistant microorganisms Code(s): Z16.35 - RESISTANCE TO MULTIPLE ANTIMICROBIAL DRUGS
--- NOTE | 2016-09-08 14:29 | MSN ---
Addendum entered and electronically signed by DuniarennyXin [email or web address] 09/08/16 17:20: Confirmed Home Med List w/ Pt -Amlodipine 5mg QD -Omeprazole 20mg QD -Eliquis 5mg QD -Lasix 20mg QD Original Note: Progress Note (SOAP) - Subjective Chief Complaint: Fever, chills, cough/cp History of Present Illness: Jese is a 46 y/o female w/ PMHx of HTN, Liposuction (02/2016 [place]) on Eliquis from post op DVT R LE, and recurrent UTI with prior ESBL infection presented to the emergency department with persistent fevers, chills, new onset cough and chest pain after being discharged on Macrobid only two days prior from ED. Pt does not complain of dysuria, but pressure sensation when urinating. States slight hematuria, no amol blood. Increase frequency in urination, but with normal quantity of urine. Complains non-productive cough, chest pain that is worse with cough, slight sob, f/c/myalgia. Patient is not on period. - Current Medications Current Medications: Active Medications Acetaminophen (Tylenol -) 650 mg PO Q4H PRN PRN Reason: FEVER OR PAIN Last Admin: 09/08/16 09:23 Dose: 650 mg Al Hydroxide/Mg Hydroxide (Mylanta Oral Suspension -) 30 ml PO Q6H PRN PRN Reason: DYSPEPSIA Amlodipine Besylate (Norvasc -) 5 mg PO DAILY [facility] Last Admin: 09/08/16 09:22 Dose: 5 mg Apixaban (Eliquis -) 5 mg PO BID [facility] Last Admin: 09/08/16 09:22 Dose: 5 mg Guaifenesin (Robitussin Dm -) 5 ml PO Q4H PRN PRN Reason: COUGH Sodium Chloride (Normal Saline -) 1,000 mls @ 83 mls/hr IV ASDIR [facility] Last Admin: 09/08/16 01:25 Dose: 83 mls/hr Ertapenem 1 gm/ Sodium (Chloride) 50 mls @ 50 mls/hr IVPB DAILY [facility] PRN Reason: Protocol Ondansetron HCl (Zofran Injection) 4 mg IVPUSH Q6H PRN PRN Reason: NAUSEA AND/OR VOMITING Pantoprazole Sodium (Protonix -) 40 mg PO DAILY [facility] Last Admin: 09/08/16 09:23 Dose: 40 mg - Objective Vital Signs: Vital Signs Temperature 98.1 F 09/08/16 13:56 Pulse Rate 62 09/08/16 13:56 Respiratory Rate 14 09/08/16 13:56 Blood Pressure 112/68 09/08/16 13:56 O2 Sat by Pulse Oximetry (%) 97 09/08/16 09:00 Constitutional: Yes: Mild Distress Eyes: Yes: EOM Intact HENT: Yes: Atraumatic, Normocephalic Neck: Yes: Trachea Midline Cardiovascular: Yes: Regular Rate and Rhythm. No: Murmur Respiratory: Yes: Regular, CTA Bilaterally. No: Wheezes Gastrointestinal: Yes: Normal Bowel Sounds, Soft Genitourinary: Yes: CVA Tenderness - Right, Other (+Oscar's punch, Suprapubic tenderness) Peripheral Pulses WNL: Yes Peripheral Pulses: Left Radial: 2+, Right Radial: 2+, Left Doralis Pedis: 2+, Right Dorsalis Pedis: 2+ Edema: No Labs Lab Results: CBC,CMP WBC 11.3 K/mm3 (4.0-10.0) H 09/08/16 05:35 RBC 4.21 M/mm3 (3.60-5.2) 09/08/16 05:35 Hgb 11.8 GM/dL (10.7-15.3) 09/08/16 05:35 Hct 35.7 % (32.4-45.2) 09/08/16 05:35 MCV 84.7 fl (80-96) 09/08/16 05:35 MCHC 33.2 g/dl (32.0-36.0) 09/08/16 05:35 RDW 17.0 % (11.6-15.6) H 09/08/16 05:35 Plt Count 225 K/MM3 (134-434) 09/08/16 05:35 MPV 8.6 fl (7.5-11.1) 09/08/16 05:35 Neutrophils % 76.0 % (42.8-82.8) 09/07/16 19:40 Lymphocytes % 6.4 % (8-40) L 09/07/16 19:40 Monocytes % 17.1 % (3.8-10.2) H D 09/07/16 19:40 Eosinophils % 0.1 % (0-4.5) D 09/07/16 19:40 Basophils % 0.4 % (0-2.0) 09/07/16 19:40 Sodium 139 mmol/L (136-145) 09/08/16 05:35 Potassium 3.8 mmol/L (3.5-5.1) 09/08/16 05:35 Chloride 103 mmol/L (98-107) 09/08/16 05:35 Carbon Dioxide 27 mmol/L (21-32) 09/08/16 05:35 Anion Gap 9 (8-16) 09/08/16 05:35 BUN 8 mg/dL (7-18) 09/08/16 05:35 Creatinine 1.2 mg/dL (0.55-1.02) H 09/08/16 05:35 Creat Clearance w eGFR 40.85 (>60) 09/07/16 19:40 Random Glucose 105 mg/dL (74-106) 09/08/16 05:35 Lactic Acid 0.876 mmol/L (0.4-2.0) 09/07/16 19:01 Calcium 8.1 mg/dL (8.5-10.1) L 09/08/16 05:35 Phosphorus 2.6 mg/dL (2.5-4.9) D 09/08/16 02:00 Magnesium 2.3 mg/dL (1.8-2.4) 09/08/16 02:00 Total Bilirubin 0.5 mg/dL (0.2-1.0) 09/07/16 19:40 AST 16 U/L (15-37) D 09/07/16 19:40 ALT 37 U/L (12-78) D 09/07/16 19:40 Alkaline Phosphatase 130 U/L (45-117) H D 09/07/16 19:40 Creatine Kinase 30 IU/L (26-192) 09/08/16 05:35 Troponin I < 0.02 ng/ml (0.00-0.05) 09/08/16 05:35 Total Protein 6.8 g/dl (6.4-8.2) 09/07/16 19:40 Albumin 2.8 g/dl (3.4-5.0) L 09/07/16 19:40 Lipase 103 U/L (73-393) 09/08/16 02:00 Imaging - Results Chest X-ray: Report Reviewed (No acute pulmonary pathology) Ultrasound: Report Reviewed (Renal: R Kidney 10.8, L Kidney 11.2) Assessment/Plan Jese is a 46 y/o female w/ PMHx of HTN, Liposuction (02/2016 [facility]) on Eliquis from post op DVT R LE, and recurrent UTI with prior ESBL infection who is admitted for sepsis 2/2 pyelonephritis. 1. Sepsis 2/2 pyelonephritis; Pt was discharged from ED two days ago with insufficient coverage with Macrobid-- her cultures from that visit grew ESBL sensitive to Imipenem and Ertapenem. -HR 96, T 100.3, +Urine Leuk Esterase -R CVA tenderness, +Oscar's punch, suprapubic tenderness -Renal US: unremarkable (not sensitive for diagnosis of pyelonephritis) -Received one dose of Iimipenem 500mg in ED -Continue Ertapenem 1g IV daily -IV NS 83cc/hr -Ucx, Bcx pending -Pic line can be placed after bacteremia r/o -ID consult appreciated; Dr. Ibarra-- continue Ertapenem for few days, consider Fosfomycin 3g dose 2. Atypical Chest pain; likely 2/2 costochondritis from viral URI -Troponin <0.02 x 2 -EKG normal sinus, no ST-T wave abnormalities -Tylenol 650mg q4h prn 3. URI; likely viral -nonproductive cough, myalgia, fever, chills -Influenza swab -Robitussin DM q4h prn -Tylenol 650mg q4h prn 4. STEPHANIE; prerenal likely 2/2 volume depletion from lasix, vomiting, dec po intake -- improving -Cr 1.2 (1.4); baseline 1.0 -IV NS 83cc/hr -Lasix held 5. Hypokalemia; resolved, likely 2/2 lasix -K 3.8 (3.3) -Mg, P wnl -KCl 40meq given in ED -Lasix held 6. HTN -Amlodipine 5mg qd 7. Post-op DVT (03/2016) -Eliquis 5mg BID being treated for total of 6 months -IVC filter in place since 2002 per pt 8. GERD -Pantoprazole IV 40mg -Mylanta q6h prn 9. DVT ppx -on Eliquis
[2016-09-08 15:39] LABS: HIV 1 & 2 AB NEGATIVE; HIV 1 AGp24 NEGATIVE
--- NOTE | 2016-09-08 15:49 | PN ---
Physical Exam: SUBJECTIVE: Patient seen and examined and examined this morning. Still complaining of supra pubic pain. Has increased frequency. Doesn't have burning urination, urgency or hesitancy. Denies chest pain, sob, cough, palpitation, abdominal pain, nausea or vomiting. OBJECTIVE: Vital Signs Period Temp Pulse Resp BP Sys/Acosta Pulse Ox Last 24 Hr 98.1 F-100.5 F 62-78 14-20 109-130/66-90 97-99 GENERAL: The patient is awake, alert, and fully oriented, lying comfortably in bed, in no acute distress. HEAD: Normal with no signs of trauma. EYES: PERRL, extraocular movements intact, sclera anicteric, conjunctiva clear. No ptosis. ENT: Ears normal, nares patent, oropharynx clear without exudates, moist mucous membranes. NECK: Trachea midline, full range of motion, supple. LUNGS: Breath sounds equal, clear to auscultation bilaterally, no wheezes, no crackles, no accessory muscle use. HEART: Regular rate and rhythm, S1, S2 without murmur, rub or gallop. ABDOMEN: Soft, supra pubic tenderness, nondistended, normoactive bowel sounds, guarding +, no rebound, no hepatosplenomegaly, no masses. EXTREMITIES: 2+ pulses, warm, well-perfused, no edema. MUSCULOSKELETAL: Has right CVA tenderness. NEUROLOGICAL: Cranial nerves II through XII grossly intact. Normal speech, gait not observed. PSYCH: Normal mood, normal affect. SKIN: Warm, dry, normal turgor, no rashes or lesions noted Laboratory Results - last 24 hr 09/08/16 09/08/16 09/08/16 02:00 05:35 05:35 WBC 11.3 H RBC 4.21 Hgb 11.8 Hct 35.7 MCV 84.7 MCHC 33.2 RDW 17.0 H Plt Count 225 MPV 8.6 INR PTT (Actin FS) Sodium 139 Potassium 3.8 Chloride 103 Carbon Dioxide 27 Anion Gap 9 BUN 8 Creatinine 1.2 H Random Glucose 105 Calcium 8.1 L Phosphorus 2.6 D Magnesium 2.3 Creatine Kinase 41 Troponin I < 0.02 Lipase 103 U Random Total Protein Ur Random Sodium Ur Random Potassium Ur Random Chloride Urine Creatinine HIV 1&2 Antibody Screen HIV P24 Antigen 09/08/16 09/08/16 09/08/16 05:35 05:35 07:36 WBC RBC Hgb Hct MCV MCHC RDW Plt Count MPV INR 1.54 H D PTT (Actin FS) 34.3 Sodium Potassium Chloride Carbon Dioxide Anion Gap BUN Creatinine Random Glucose Calcium Phosphorus Magnesium Creatine Kinase 30 Troponin I < 0.02 Lipase U Random Total Protein Ur Random Sodium Ur Random Potassium Ur Random Chloride Urine Creatinine Cancelled HIV 1&2 Antibody Screen HIV P24 Antigen 09/08/16 09/08/16 09/08/16 07:36 07:36 14:25 WBC RBC Hgb Hct MCV MCHC RDW Plt Count MPV INR PTT (Actin FS) Sodium Potassium Chloride Carbon Dioxide Anion Gap BUN Creatinine Random Glucose Calcium Phosphorus Magnesium Creatine Kinase Troponin I Lipase U Random Total Protein 113 H Ur Random Sodium Cancelled 15 Ur Random Potassium Cancelled 19.0 Ur Random Chloride Cancelled 15 Urine Creatinine 97.0 HIV 1&2 Antibody Screen Negative HIV P24 Antigen Negative Active Medications Generic Name Dose Route Start Last Admin Trade Name Freq PRN Reason Stop Dose Admin Acetaminophen 650 mg 09/08/16 01:02 09/08/16 09:23 Tylenol - PO 650 mg Q4H PRN Administration FEVER OR PAIN Al Hydroxide/Mg Hydroxide 30 ml 09/08/16 01:28 Mylanta Oral Suspension - PO Q6H PRN DYSPEPSIA Amlodipine Besylate 5 mg 09/08/16 10:00 09/08/16 09:22 Norvasc - PO 5 mg DAILY BRAD Administration Apixaban 5 mg 09/08/16 01:00 09/08/16 09:22 Eliquis - PO 5 mg BID [facility]AD Administration Guaifenesin 5 ml 09/08/16 01:35 Robitussin Dm - PO Q4H PRN COUGH Sodium Chloride 1,000 mls @ 83 mls/hr 09/08/16 00:45 09/08/16 01:25 Normal Saline - IV 83 mls/hr ASDIR BRAD Administration Ertapenem 1 gm/ Sodium 50 mls @ 50 mls/hr 09/09/16 10:00 Chloride IVPB DAILY [facility] Protocol Ondansetron HCl 4 mg 09/08/16 00:51 Zofran Injection IVPUSH Q6H PRN NAUSEA AND/OR VOMITING Pantoprazole Sodium 40 mg 09/08/16 10:00 09/08/16 09:23 Protonix - PO 40 mg DAILY BRAD Administration ASSESSMENT/PLAN: Patient is a 46 year old female with past medical history of HTN, CHF, Gastritis , DVT right lower ext in 03/2016 on eliquis, IVC filter , Recurrent UTI, ESBL UTI, recent discharged from ED 2 days ago for UTI with Macrobid now presents for for unresolving symptoms and fever # Sepsis from UTI with possible pyelonephritis Patient presented with fever, unresolving urinary symptoms, was treated with Nitrofurantoin on 09/05/2016 after ED visit and sent home. Has a history of recurrent UTI with ESBL sensitive to carbepenems On arrival, WBC 15.2, HR 96, temp 100.8; Urine positive for regulo est Admitted in Med-Surg IV NS @ 83 mls/hr IV Ertapenem 1 gm Daily IV Zofran 4mg Q4H PRN US renal unremarkable # Atypical Chest, most likely Costochondritis ACS ruled out: EKG was normal sinus rhythm, no ST-Twave abnormalities Troponins negative Aspirin 325 Po once given in the ED Tylenol 650mg PO prn q4h # STEPHANIE most likely prerenal-dehydration and volume depletion, poor oral intake since illness. Cr 1.4, baseline 1 IV fluid NS at 83ml/h Avoid nephrotoxic drugs # Hypokalemia K3.3---> 3.8 after repletion BMP in am # Gastritis/ GERD Protonix 40mg Po daily # URI Viral Syndrome -Resolving Robutussin PRN Acetaminophen PRN Zofran IV PRN Influenza ordered # H/o of DVT in right lower ext and s/p IVC filter On Eliquis 5mg Daily ( Patient confirmed that she started taking it since 5 months without any side effects and to be continued for another month) Patient had a gastric by pass surgery years ago and had a IVC filter placed ( permanently) as per the patient. # Questionable CHF - Not in exacerbation Patient is on lasix 20mg Daily at home for leg swelling but denies any cardiac issues or CHF. Lasix on hold for now until euvolemic. # HTN -Stable Continued Norvasc 5mg Daily # FEN IV Fluid: NS at 83ml/h Electrolytes: repleted and to be repeated tomorrow Sodium controlled diet # Prophylaxis For DVT: On Eliquis For GI: On Protonix # Disposition: Admitted in Med Surg. Duration of stay unknown. Illness, Investigation and Plan of care explained to the patient. She verbalized understanding. Case seen and discussed with Dr. Guzman. Visit type - Emergency Visit Emergency Visit: Yes ED Registration Date: 09/07/16 Care time: The patient presented to the Emergency Department on the above date and was hospitalized for further evaluation of their emergent condition. - New Patient This patient is new to me today: Yes Date on this admission: 09/08/16 - Critical Care Critical Care patient: No - Discharge Referral Referred to [facility] Med P.C.: No
--- NOTE | 2016-09-08 16:15 | EKG ---
Test Reason : Blood Pressure : / mmHG Vent. Rate : 081 BPM Atrial Rate : 081 BPM P-R Int : 146 ms QRS Dur : 082 ms QT Int : 352 ms P-R-T Axes : 029 002 024 degrees QTc Int : 408 ms NORMAL SINUS RHYTHM NORMAL ECG WHEN COMPARED WITH ECG OF 31-MAY-2016 18:07, NO SIGNIFICANT CHANGE WAS FOUND Confirmed by FRANTZ PUCKETT MD ([id number]) on 09/08/2016 4:15:14 PM Referred By: Confirmed By:FRANTZ PUCKETT MD
--- NOTE | 2016-09-08 17:40 | PN ---
Teaching Attending Note Name of Resident: Kiki Garcia ATTENDING PHYSICIAN STATEMENT I saw and evaluated the patient. I reviewed the resident's note and discussed the case with the resident. I agree with the resident's findings and plan as documented. SUBJECTIVE: feels better, has suprapubic pressure , no CP or SOB . OBJECTIVE: NAD CV: RRR Lungs : CTAB Ext : no edema ABd : soft, ND, suprapubic tenderness with no rebound tenderness or guarding , nl BS R CVA tenderness ASSESSMENT AND PLAN: 46 y/o lady with h/o recurrent UTIs, ESBL , Liposuction in 03/08 , DVT apr 07, IVC filter in 2002, who presented to ER on 09/05 diagnosed with UTI and d/c o n bactrim, now presents with fever , and flank pain, was found to have pyelonephritis . 1- acute ESBL pyelonephritis : fever improved and leukocytosis improved - cont ertapenem - follow blood cx - if no bacteremia , will probably need 10 days of abx 2- CP : atypical , nl EKG , nl trop 3- STEPHANIE : likely due to volume depletion . cont IVf monitor Cr 4- hypokalemia : replete 5- h/o DVT 04/07, on AC x 6 month . cont 6- cough, with clear sputumproduction . improving no evidence of infiltrate on cxray. check flu swab 7- HLOC
--- NOTE | 2016-09-08 20:43 | CONS ---
INFECTIOUS DISEASE CONSULT DATE OF CONSULTATION: DATE OF DICTATION: 09/08/2016 HISTORY OF PRESENT ILLNESS: This is a 46-year-old female with a history of multiple co-morbidities including a history of right lower extremity DVT on Eliquis, IVC filter, hypertension, congestive heart failure and gastritis. Two days prior to this admission, she had been treated with Macrobid in the emergency room. Because of fever and suprapubic discomfort, she came to the emergency room yesterday where she was admitted for further evaluation. She noted fever and chills at home during this period of time. She has a history of urinary infections in the past and notes that in February of 2016, she went to the [facility] for cosmetic surgery, including several areas with liposuction. Upon returning, she had apparently developed lower extremity edema with a diagnosis at that time of DVT. Here, she is relatively asymptomatic at this point from the standpoint of urinary complaints. Her temperature is trending down and subjectively, she feels better since admission. I am asked to see her for further evaluation and treatment. A renal sonogram shows no hydronephrosis or kidney stone. PAST MEDICAL HISTORY: As noted above. ADDITIONAL SURGICAL HISTORY: Gastric bypass, cosmetic surgery, cervical surgery, sections and left foot surgery. CURRENT MEDICATION/ANTIBIOTIC: Ertapenem. ALLERGIES: PENICILLIN. SOCIAL HISTORY: Nonsmoker. No history of alcohol use. Lives with her . Travel in February 2016 to the [facility] as mentioned. Otherwise, no recent travel. FAMILY HISTORY: Noncontributory. REVIEW OF SYSTEMS: Respiratory: No cough or shortness of breath. Cardiac: No chest pain or palpitations. GI: Minimal lower suprapubic discomfort. No nausea, vomiting or diarrhea. : No dysuria, hematuria or urinary frequency. PHYSICAL EXAMINATION General: She is an alert female in no distress. Vital Signs: Temperature max 100.5, pulse 73, blood pressure , respirations 20. Neck: Supple. Lungs: Clear to percussion and auscultation. Heart: S1, S2, regular rhythm, no audible murmur or gallop. Abdomen: Soft, positive bowel sounds, not distended. Mild suprapubic tenderness. No guarding or rebound. Extremities: Without clubbing, cyanosis or edema. : No CVA tenderness noted. LABS: White count 15.2, hemoglobin 12.3, platelets of 246. Currently, white count 11.3. BUN 8, creatinine 1.2. Urinalysis with trace leukocyte esterase, 1 RBC, 5 WBCs. A set of blood cultures is negative. Urine culture dated August 2015 with an ESBL E. coli sensitive to carbapenem. Lastly, a chest x-ray shows no acute infiltrate. ASSESSMENT: 1. Fever secondary to urinary tract infection. 2. ESBL; [id number] organism. PLAN: 1. Ertapenem 1 gm IV q 24 hours for 3-5 days, followed by a dose of fosfomycin upon discharge. 2. Contact isolation for resistant organism. 3. HIV testing. NAFISA WATSON M.D. BASSEM/[id number]
[2016-09-09 07:18] LABS: MCH 28.5 pg (25.7-33.7); MCHC 34.2 g/dl (32.0-36.0); MEAN CELL VOLUME 83.1 fl (80-96); MEAN PLT VOLUME 8.7 fl (7.5-11.1); PLATELET COUNT 247 K/MM3 (134-434); RDW 17.1 % (11.6-15.6); WHITE BLOOD COUNT 7.9 K/mm3 (4.0-10.0)
[2016-09-09 07:44] LABS: ALBUMIN 2.3 g/dl (3.4-5.0); BILIRUBIN,TOTAL 0.3 mg/dL (0.2-1.0); CALCIUM 7.8 mg/dL (8.5-10.1); COCKROFT - GAULT 88.3235; CREATININE 1.1 mg/dL (0.55-1.02); MAGNESIUM 2.3 mg/dL (1.8-2.4); PHOSPHOROUS 2.6 mg/dL (2.5-4.9); TOT PROT 5.7 g/dl (6.4-8.2)
[2016-09-09] MEDS: amLODIPine BESYLATE 5 MG TABLET (FP) PO SCH (09:20)
[2016-09-09] MEDS: SODIUM CHLORIDE 1,000 ML IV SCH (09:20)
[2016-09-09] MEDS: PANTOPRAZOLE 40 MG TABLET (FP) PO SCH (09:20)
[2016-09-09] MEDS: APIXABAN 5 MG TABLET PO SCH ×2 (09:20→21:53)
[2016-09-09] MEDS: ERTAPENEM SODIUM 1 GM in SODIUM CHLORIDE 50 ML IVPB SCH (09:21)
--- NOTE | 2016-09-09 09:52 | PN ---
Physical Exam: SUBJECTIVE: Patient seen and examined at bed side this morning. Still has pressure feeling in the suprapubic area after urinating but feels much better than yesterday. Denies dysuria, urgency, hesitancy. Patient mentioned her LMP was a week ago but had spotting just for a day yesterday. Denies fever, chills, rigors, sweating, abdominal pain, nausea or vomiting. Bowel habit normal. OBJECTIVE: Vital Signs Period Temp Pulse Resp BP Sys/Acosta Pulse Ox Last 24 Hr 98.1 F-100.1 F 62-73 14-20 111-120/68-90 97 GENERAL: The patient is awake, alert, and fully oriented, lying comfortably in bed, in no acute distress. HEAD: Normal with no signs of trauma. EYES: PERRL, extraocular movements intact, sclera anicteric, conjunctiva clear. No ptosis. ENT: Ears normal, nares patent, oropharynx clear without exudates, moist mucous membranes. NECK: Trachea midline, full range of motion, supple. LUNGS: Breath sounds equal, clear to auscultation bilaterally, no wheezes, no crackles, no accessory muscle use. HEART: Regular rate and rhythm, S1, S2 without murmur, rub or gallop. ABDOMEN: Soft, supra pubic tenderness (improved than yesterday), nondistended, normoactive bowel sounds, guarding +, no rebound, no hepatosplenomegaly, no masses. EXTREMITIES: 2+ pulses, warm, well-perfused, no edema. MUSCULOSKELETAL: Has right CVA tenderness (decreased from yesterday) NEUROLOGICAL: Cranial nerves II through XII grossly intact. Normal speech, gait not observed. PSYCH: Normal mood, normal affect. SKIN: Warm, dry, normal turgor, no rashes or lesions noted Laboratory Results - last 24 hr 09/08/16 09/08/16 09/08/16 07:36 07:36 07:36 WBC RBC Hgb Hct MCV MCHC RDW Plt Count MPV Sodium Potassium Chloride Carbon Dioxide Anion Gap BUN Creatinine Creat Clearance w eGFR Random Glucose Calcium Phosphorus Magnesium Total Bilirubin AST ALT Alkaline Phosphatase Total Protein Albumin U Random Total Protein 113 H Ur Random Sodium Cancelled 15 Ur Random Potassium Cancelled 19.0 Ur Random Chloride Cancelled 15 Urine Creatinine Cancelled 97.0 HIV 1&2 Antibody Screen HIV P24 Antigen 09/08/16 09/09/16 09/09/16 14:25 06:00 06:00 WBC 7.9 D RBC 4.04 Hgb 11.5 Hct 33.5 MCV 83.1 MCHC 34.2 RDW 17.1 H Plt Count 247 MPV 8.7 Sodium 140 Potassium 3.7 Chloride 105 Carbon Dioxide 24 Anion Gap 11 BUN 11 D Creatinine 1.1 H Creat Clearance w eGFR 53.96 Random Glucose 90 Calcium 7.8 L Phosphorus 2.6 Magnesium 2.3 Total Bilirubin 0.3 D AST 15 ALT 27 D Alkaline Phosphatase 92 D Total Protein 5.7 L Albumin 2.3 L U Random Total Protein Ur Random Sodium Ur Random Potassium Ur Random Chloride Urine Creatinine HIV 1&2 Antibody Screen Negative HIV P24 Antigen Negative Active Medications Generic Name Dose Route Start Last Admin Trade Name Freq PRN Reason Stop Dose Admin Acetaminophen 650 mg 09/08/16 01:02 09/08/16 17:38 Tylenol - PO 650 mg Q4H PRN Administration FEVER OR PAIN Al Hydroxide/Mg Hydroxide 30 ml 09/08/16 01:28 Mylanta Oral Suspension - PO Q6H PRN DYSPEPSIA Amlodipine Besylate 5 mg 09/08/16 10:00 09/09/16 09:20 Norvasc - PO 5 mg DAILY BRAD Administration Apixaban 5 mg 09/08/16 01:00 09/09/16 09:20 Eliquis - PO 5 mg BID BRAD Administration Guaifenesin 5 ml 09/08/16 01:35 Robitussin Dm - PO Q4H PRN COUGH Sodium Chloride 1,000 mls @ 83 mls/hr 09/08/16 00:45 09/09/16 09:20 Normal Saline - IV 83 mls/hr ASDIR BRAD Administration Ertapenem 1 gm/ Sodium 50 mls @ 50 mls/hr 09/09/16 10:00 09/09/16 09:21 Chloride IVPB 50 mls/hr DAILY BRAD Administration Protocol Ondansetron HCl 4 mg 09/08/16 00:51 Zofran Injection IVPUSH Q6H PRN NAUSEA AND/OR VOMITING Pantoprazole Sodium 40 mg 09/08/16 10:00 09/09/16 09:20 Protonix - PO 40 mg DAILY BRAD Administration ASSESSMENT/PLAN: Patient is a 46 year old female with past medical history of HTN, CHF, Gastritis , DVT right lower ext in 03/2016 on eliquis, IVC filter , Recurrent UTI, ESBL UTI, recent discharged from ED 2 days ago for UTI with Macrobid now presents for for unresolving symptoms and fever # Acute ESBL pyelonephritis Overnight, had temp: 100.1 F but afebril now. Has a history of recurrent UTI with ESBL sensitive to carbepenems Admitted in Med-Surg IV NS @ 83 mls/hr IV Ertapenem 1 gm Daily Day 2 IV Zofran 4mg Q4H PRN US renal unremarkable # Atypical Chest, most likely Costochondritis ACS ruled out: EKG was normal sinus rhythm, no ST-Twave abnormalities Troponins negative Aspirin 325 Po once given in the ED Tylenol 650mg PO prn q4h # STEPHANIE most likely prerenal-dehydration and volume depletion, poor oral intake since illness. Cr 1.1 , baseline 1 IV fluid NS at 83ml/h Avoid nephrotoxic drugs # Hypokalemia -Resolved. K3.3---> 3.8 after repletion BMP in am # Gastritis/ GERD Protonix 40mg Po daily # URI Viral Syndrome -Resolving Robutussin PRN Acetaminophen PRN Zofran IV PRN Influenza negative # H/o of DVT in right lower ext and s/p IVC filter On Eliquis 5mg Daily ( Patient confirmed that she started taking it since 5 months without any side effects and to be continued for another month) Patient had a gastric by pass surgery years ago and had a IVC filter placed ( permanently) as per the patient. # Questionable CHF - Not in exacerbation Patient is on lasix 20mg Daily at home for leg swelling but denies any cardiac issues or CHF. Lasix on hold for now until euvolemic. # HTN -Stable Continued Norvasc 5mg Daily # FEN IV Fluid: NS at 83ml/h Electrolytes: repleted and to be repeated tomorrow Sodium controlled diet # Prophylaxis For DVT: On Eliquis For GI: On Protonix # Disposition: Admitted in Med Surg. Duration of stay unknown. Illness, Investigation and Plan of care explained to the patient. She verbalized understanding. Case seen and discussed with Dr. Guzman. Visit type - Emergency Visit Emergency Visit: Yes ED Registration Date: 09/07/16 Care time: The patient presented to the Emergency Department on the above date and was hospitalized for further evaluation of their emergent condition. - New Patient This patient is new to me today: No - Critical Care Critical Care patient: No
--- NOTE | 2016-09-09 13:06 | PN ---
Teaching Attending Note Name of Resident: Kiki Garcia ATTENDING PHYSICIAN STATEMENT I saw and evaluated the patient. I reviewed the resident's note and discussed the case with the resident. I agree with the resident's findings and plan as documented. SUBJECTIVE: no fever or chills. has suprapubic discomfort with urination . has no N/V OBJECTIVE: NAD CV: RRR Lungs : CTAB Ext : no edema Abd: soft, ND, suprapubic tenderness with no rebound tenderness or guarding ,nl BS R CVA tenderness ASSESSMENT AND PLAN: 46 y/o lady with h/o recurrent UTIs, ESBL , Liposuction in 03/08 , DVT apr 07, IVC filter in 2002, who presented to ER on 09/05 diagnosed with UTI and d/c o n bactrim, now presents with fever , and flank pain, was found to have pyelonephritis . 1- Acute ESBL pyelonephritis : had a fever last night , but leukocytosis resolved. - cont ertapenem day 2 - blood cx neg x 4 hr - if no bacteremia , will probably need 10 days of ertapenem 2- CP : atypical , nl EKG , nl trop 3- STEPHANIE : likely due to volume depletion and infection improved. cont iVF 4- h/o DVT 04/07, on AC x 6 month . cont 5- cough, with clear sputum production . improving no evidence of infiltrate on cxray. flu swab neg HLOC
[2016-09-09] MEDS: ACETAMINOPHEN 325 MG TABLET (FP) PO PRN (19:09)
[2016-09-09] MEDS: POLYETHYLENE GLYCOL 3350 119 GM BTL PO SCH (21:53)
[2016-09-09] MEDS ORDERED: ACETAMINOPHEN/CAFFEINE/BUTALBITAL 1 TAB PO ONE (22:00)
[2016-09-10] MEDS: SODIUM CHLORIDE 1,000 ML IV SCH ×2 (02:53→15:25)
[2016-09-10 07:12] LABS: MCH 28.2 pg (25.7-33.7); MCHC 33.6 g/dl (32.0-36.0); MEAN CELL VOLUME 83.8 fl (80-96); MEAN PLT VOLUME 8.5 fl (7.5-11.1); PLATELET COUNT 289 K/MM3 (134-434); RDW 16.4 % (11.6-15.6); WHITE BLOOD COUNT 5.6 K/mm3 (4.0-10.0)
[2016-09-10 07:39] LABS: COCKROFT - GAULT 88.3235; CREATININE 1.1 mg/dL (0.55-1.02)
[2016-09-10] MEDS: APIXABAN 5 MG TABLET PO SCH ×2 (09:35→21:28)
[2016-09-10] MEDS: PANTOPRAZOLE 40 MG TABLET (FP) PO SCH (09:35)
[2016-09-10] MEDS: amLODIPine BESYLATE 5 MG TABLET (FP) PO SCH (09:36)
[2016-09-10] MEDS: POLYETHYLENE GLYCOL 3350 119 GM BTL PO SCH (09:36)
[2016-09-10] MEDS: ERTAPENEM SODIUM 1 GM in SODIUM CHLORIDE 50 ML IVPB SCH (10:09)
[2016-09-10] MEDS ORDERED: ACETAMINOPHEN/CAFFEINE/BUTALBITAL 1 TAB PO ONE (10:15)
--- NOTE | 2016-09-10 14:04 | PN ---
Progress Note (short form) - Note Progress Note: Subjective: no fever or chills, no abd pain ,has frontal CHAUDHARI . no weakness, numbness or tingling. Objective: Vital Signs: Last Vital Signs Temp Pulse Resp BP Pulse Ox 98.2 F 53 L 20 130/82 100 09/10/16 08:39 09/10/16 08:39 09/10/16 08:39 09/10/16 08:39 09/10/16 08:40 Laboratory Results - last 24 hr 09/10/16 09/10/16 06:00 06:00 WBC 5.6 RBC 3.78 Hgb 10.7 Hct 31.7 L MCV 83.8 MCHC 33.6 RDW 16.4 H Plt Count 289 MPV 8.5 Sodium 140 Potassium 3.7 Chloride 107 Carbon Dioxide 26 Anion Gap 7 L BUN 13 Creatinine 1.1 H Random Glucose 91 Calcium 8.0 L Physical Exam: AD CV: RRR Lungs : CTAB Ext : no edema Abd: soft, ND, suprapubic tenderness with no rebound tenderness or guarding ,nl BS R CVA tenderness Neuro : EOMI, symmetric face, nl facial sensation , round equal pupils , reactive to light . strength 5/5 in upper and lower extremities proximally and distally. sensation to light touch nL , reflexes : 2+ knee jerk and biceps b/l ASSESSMENT AND PLAN: 46 y/o lady with h/o recurrent UTIs, ESBL , Liposuction in 03/08 , DVT apr 07, IVC filter in 2002, who presented to ER on 09/05 diagnosed with UTI and d/c o n bactrim, now presents with fever , and flank pain, was found to have pyelonephritis . 1- Acute ESBL pyelonephritis : cont to imporve - cont ertapenem day 3 - blood cx neg to date ( 48 hr) -will need 10 days of ertapenem 2- CP: atypical , nl EKG , nl trop 3- STEPHANIE : likely due to volume depletion and infection improved. cont IVF 4- h/o DVT 04/07, on AC x 6 month . cont eliquis 5- Cough, with clear sputum production . improving no evidence of infiltrate on cxray. flu swab neg HLOC Possible PICC tomorrow , and then cont Abx at home Visit type - Emergency Visit Emergency Visit: Yes ED Registration Date: 09/07/16 Care time: The patient presented to the Emergency Department on the above date and was hospitalized for further evaluation of their emergent condition. - New Patient This patient is new to me today: No - Critical Care Critical Care patient: No
[2016-09-10] MEDS ORDERED: PICC LINE 8 ML FLUSH PROTOCOL IVPUSH PRN (14:11)
[2016-09-10] MEDS ORDERED: BISACODYL 5 MG TABLET.DR (FP) PO ONE (21:44)
[2016-09-10] MEDS: DOCUSATE SODIUM 100 MG CAPSULE (FP) PO SCH (22:08)
[2016-09-11] MEDS: SODIUM CHLORIDE 1,000 ML IV SCH ×2 (04:00→16:48)
[2016-09-11] MEDS: DOCUSATE SODIUM 100 MG CAPSULE (FP) PO SCH ×3 (05:21→21:19)
[2016-09-11 08:08] LABS: CALCIUM 7.8 mg/dL (8.5-10.1); COCKROFT - GAULT 88.3235; CREATININE 1.1 mg/dL (0.55-1.02)
[2016-09-11] MEDS ORDERED: PT OWN MED DRAWER 7, Y5N ONE (09:10)
[2016-09-11] MEDS: APIXABAN 5 MG TABLET PO SCH ×2 (09:24→21:18)
[2016-09-11] MEDS: amLODIPine BESYLATE 5 MG TABLET (FP) PO SCH (09:24)
[2016-09-11] MEDS: PANTOPRAZOLE 40 MG TABLET (FP) PO SCH (09:24)
[2016-09-11] MEDS: ERTAPENEM SODIUM 1 GM in SODIUM CHLORIDE 50 ML IVPB SCH (09:24)
[2016-09-11] MEDS: POLYETHYLENE GLYCOL 3350 119 GM BTL PO SCH (09:25)
--- NOTE | 2016-09-11 14:18 | PN ---
Teaching Attending Note Name of Resident: Beto Larry ATTENDING PHYSICIAN STATEMENT I saw and evaluated the patient. I reviewed the resident's note and discussed the case with the resident. I agree with the resident's findings and plan as documented. SUBJECTIVE: improved from before . pressure in suprapubic area with urination OBJECTIVE: NAD CV: RRR Lungs: CTAB Ext : no edema Abd: soft, ND, NT . R CVA tenderness ASSESSMENT AND PLAN: 46 y/o lady with h/o recurrent UTIs, ESBL , Liposuction in 03/08 , DVT apr 07, IVC filter in 2002, who presented to ER on 09/05 diagnosed with UTI and d/c o n bactrim, now presents with fever , and flank pain, was found to have pyelonephritis . 1- Acute ESBL pyelonephritis : cont to improve - cont ertapenem day 4 - blood cx neg to date - d/w Dr. Ibarra. recommended 5 days of ertapenem and then 3 doses of fosfomycin 2- STEPHANIE : likely due to volume depletion and infection improved. cont IVF for now . will dc tomorrow 3- H/o DVT 04/07, on AC x 6 month . cont eliquis dispo : will get last dose of ertapenem tomorrow, then will be dc .
--- NOTE | 2016-09-11 15:26 | PN ---
Physical Exam: SUBJECTIVE: Patient seen and examined at bed side this morning. Still complaints of pressure after she urinates but no other urinary symptoms. Denies fever, chills, rigors, sweating, abdominal pain, nausea or vomiting. Bowel habit normal. Sleep/Appetite normal. OBJECTIVE: Vital Signs Period Temp Pulse Resp BP Sys/Acosta Pulse Ox Last 24 Hr 97.9 F-98.6 F 52-61 16-20 100-127/54-85 98 GENERAL: The patient is awake, alert, and fully oriented, lying comfortably in bed, in no acute distress. HEAD: Normal with no signs of trauma. EYES: PERRL, extraocular movements intact, sclera anicteric, conjunctiva clear. No ptosis. ENT: Ears normal, nares patent, oropharynx clear without exudates, moist mucous membranes. NECK: Trachea midline, full range of motion, supple. LUNGS: Breath sounds equal, clear to auscultation bilaterally, no wheezes, no crackles, no accessory muscle use. HEART: Regular rate and rhythm, S1, S2 without murmur, rub or gallop. ABDOMEN: Soft, supra pubic tenderness (improved), nondistended, normoactive bowel sounds, guarding +, no rebound, no hepatosplenomegaly, no masses. EXTREMITIES: 2+ pulses, warm, well-perfused, no edema. MUSCULOSKELETAL: Has right CVA tenderness (improved) NEUROLOGICAL: Cranial nerves II through XII grossly intact. Normal speech, gait not observed. PSYCH: Normal mood, normal affect. SKIN: Warm, dry, normal turgor, no rashes or lesions noted Laboratory Results - last 24 hr 09/11/16 05:40 Sodium 143 Potassium 4.3 Chloride 109 H Carbon Dioxide 27 Anion Gap 7 L BUN 11 Creatinine 1.1 H Random Glucose 87 Calcium 7.8 L Active Medications Generic Name Dose Route Start Last Admin Trade Name Freq PRN Reason Stop Dose Admin Acetaminophen 650 mg 09/08/16 01:02 09/09/16 19:09 Tylenol - PO 650 mg Q4H PRN Administration FEVER OR PAIN Al Hydroxide/Mg Hydroxide 30 ml 09/08/16 01:28 Mylanta Oral Suspension - PO Q6H PRN DYSPEPSIA Amlodipine Besylate 5 mg 09/08/16 10:00 09/11/16 09:24 Norvasc - PO 5 mg DAILY BRAD Administration Apixaban 5 mg 09/08/16 01:00 09/11/16 09:24 Eliquis - PO 5 mg BID BRAD Administration Docusate Sodium 100 mg 09/10/16 22:00 09/11/16 05:21 Colace - PO 100 mg TID BRAD Administration Guaifenesin 5 ml 09/08/16 01:35 Robitussin Dm - PO Q4H PRN COUGH IV Flush 8 ml 09/10/16 14:11 Picc Line Flush IVPUSH PRN PRN Protocol Sodium Chloride 1,000 mls @ 83 mls/hr 09/08/16 00:45 09/11/16 04:00 Normal Saline - IV 83 mls/hr ASDIR BRAD Administration Ertapenem 1 gm/ Sodium 50 mls @ 50 mls/hr 09/09/16 10:00 09/11/16 09:24 Chloride IVPB 50 mls/hr DAILY BRAD Administration Protocol Ondansetron HCl 4 mg 09/08/16 00:51 Zofran Injection IVPUSH Q6H PRN NAUSEA AND/OR VOMITING Pantoprazole Sodium 40 mg 09/08/16 10:00 09/11/16 09:24 Protonix - PO 40 mg DAILY BRAD Administration Polyethylene Glycol 17 gm 09/09/16 21:45 09/11/16 09:25 Miralax (For Daily Use) - PO 17 gm DAILY BRAD Administration ASSESSMENT/PLAN: Patient is a 46 year old female with past medical history of HTN, CHF, Gastritis , DVT right lower ext in 03/2016 on eliquis, IVC filter , Recurrent UTI, ESBL UTI, recent discharged from ED 2 days ago for UTI with Macrobid now presents for for unresolving symptoms and fever # Acute ESBL pyelonephritis- resolving No acute overnight events. Has a history of recurrent UTI with ESBL sensitive to carbepenems Admitted in Med-Surg IV NS @ 83 mls/hr IV Ertapenem 1 gm Daily Day 4. As per ID, continue Ertapenam till tomorrow and discharge her tomorrow on Fosfomycin 3 doses. US renal unremarkable # Atypical Chest, most likely Costochondritis vs coughin due to viral syndrome- Resolved. ACS ruled out: EKG was normal sinus rhythm, no ST-Twave abnormalities Troponins negative Aspirin 325 Po once given in the ED Tylenol 650mg PO prn q4h # STEPHANIE most likely prerenal-dehydration and volume depletion, poor oral intake since illness.- Resolving. Cr 1.1 , baseline 1 IV fluid NS at 83ml/h Avoid nephrotoxic drugs # Hypokalemia -Resolved. repleted BMP in am # Gastritis/ GERD -Resolved Protonix 40mg Po daily # URI Viral Syndrome -Resolved Robutussin PRN Acetaminophen PRN Zofran IV PRN Influenza negative # H/o of DVT in right lower ext and s/p IVC filter On Eliquis 5mg Daily ( Patient confirmed that she started taking it since 5 months without any side effects and to be continued for another month) Patient had a gastric by pass surgery years ago and had a IVC filter placed ( permanently) as per the patient. # Questionable CHF - Not in exacerbation Patient is on lasix 20mg Daily at home for leg swelling but denies any cardiac issues or CHF. Lasix on hold for now until euvolemic. # HTN -Stable Continued Norvasc 5mg Daily # FEN IV Fluid: NS at 83ml/h Electrolytes: repleted and to be repeated tomorrow Sodium controlled diet # Prophylaxis For DVT: On Eliquis For GI: On Protonix # Disposition: Admitted in Med Surg. Plan is to discharge tomorrow after last dose of Ertapenam. Illness, Investigation and Plan of care explained to the patient. She verbalized understanding. Case seen and discussed with Dr. Guzman. Visit type - Emergency Visit Emergency Visit: Yes ED Registration Date: 09/07/16 Care time: The patient presented to the Emergency Department on the above date and was hospitalized for further evaluation of their emergent condition. - New Patient This patient is new to me today: No - Critical Care Critical Care patient: No - Discharge Referral Referred to [facility] Med [facility] No
[2016-09-12] MEDS: DOCUSATE SODIUM 100 MG CAPSULE (FP) PO SCH (05:20)
[2016-09-12] MEDS: SODIUM CHLORIDE 1,000 ML IV SCH (05:21)
[2016-09-12 07:49] LABS: CALCIUM 7.6 mg/dL (8.5-10.1); COCKROFT - GAULT 97.155
[2016-09-12] MEDS ORDERED: PICC LINE 8 ML FLUSH PROTOCOL IVPUSH PRN (10:18)
[2016-09-12 10:25] VITALS: BP 121/87; PULSE 54; TEMP 98.4
[2016-09-12] MEDS: amLODIPine BESYLATE 5 MG TABLET (FP) PO SCH (10:26)
[2016-09-12] MEDS: APIXABAN 5 MG TABLET PO SCH (10:26)
[2016-09-12] MEDS: POLYETHYLENE GLYCOL 3350 119 GM BTL PO SCH (10:26)
[2016-09-12] MEDS: PANTOPRAZOLE 40 MG TABLET (FP) PO SCH (10:26)
[2016-09-12] MEDS: ERTAPENEM SODIUM 1 GM in SODIUM CHLORIDE 50 ML IVPB SCH (10:27)
--- NOTE | 2016-09-12 11:23 | DS ---
Physical Exam: SUBJECTIVE: Patient seen and examined at bed side this morning. No complaints. Feels better. Denies fever, chills, rigors, sweating, abdominal pain, nausea or vomiting. Sleep/Appetite normal. OBJECTIVE: Vital Signs Period Temp Pulse Resp BP Sys/Acosta Pulse Ox Last 24 Hr 97.9 F-98.4 F 46-58 16-18 100-132/63-87 98 PHYSICAL EXAM GENERAL: The patient is awake, alert, and fully oriented, lying comfortably in bed, in no acute distress. HEAD: Normal with no signs of trauma. EYES: PERRL, extraocular movements intact, sclera anicteric, conjunctiva clear. No ptosis. ENT: Ears normal, nares patent, oropharynx clear without exudates, moist mucous membranes. NECK: Trachea midline, full range of motion, supple. LUNGS: Breath sounds equal, clear to auscultation bilaterally, no wheezes, no crackles, no accessory muscle use. HEART: Regular rate and rhythm, S1, S2 without murmur, rub or gallop. ABDOMEN: Soft, supra pubic tenderness (improved), nondistended, normoactive bowel sounds, guarding +, no rebound, no hepatosplenomegaly, no masses. EXTREMITIES: 2+ pulses, warm, well-perfused, no edema. MUSCULOSKELETAL: No CVA tenderness NEUROLOGICAL: Cranial nerves II through XII grossly intact. Normal speech, gait not observed. PSYCH: Normal mood, normal affect. SKIN: Warm, dry, normal turgor, no rashes or lesions noted LABS Laboratory Results - last 24 hr 09/12/16 05:35 Sodium 141 Potassium 4.0 Chloride 109 H Carbon Dioxide 25 Anion Gap 7 L BUN 10 Creatinine 1.0 Random Glucose 91 Calcium 7.6 L Microbiology 09/07/16 19:01 Blood - Peripheral Venous Blood Culture - Preliminary NO GROWTH OBTAINED AFTER 96 HOURS, INCUBATION TO CONTINUE FOR 1 DAYS. 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 HOSPITAL COURSE: Date of Admission:09/07/16 Date of Discharge: 09/12/16 ASSESSMENT/PLAN: Patient is a 46 year old female with past medical history of HTN, CHF, Gastritis , DVT right lower ext in 03/2016 on eliquis, IVC filter , Recurrent UTI, ESBL UTI, recent discharged from ED 2 days prior to admission for UTI with Macrobid presented to the ED for unresolving symptoms and fever. Admitted with the diagnosis of Acute ESBL pyelonephritis. Has a history of recurrent UTI with ESBL sensitive to carbepenems. Admitted in Med-Surg. Was treated with IV fluids and IV Ertapenem 1 gm Daily Day 5 today. US renal was done which was unremarkable. Sending the patient home on PICC line ( 09/12/2016) and to continue IV Ertapenam 1gm daily for 5 more days. Visiting nurse has been arranged. Patient has been instructed to come back to the hospital for removal of PICC line. STEPHANIE most likely prerenal-dehydration and volume depletion, poor oral intake since illness which resolved upon discharge. Creatinine today is 1. Atypical Chest, most likely Costochondritis vs coughing due to viral syndrome which resolved. ACS ruled out: EKG was normal sinus rhythm, no ST-Twave abnormalities . Troponins negative Hypokalemia which resolved after repletion. URI Viral Syndrome -Resolved. No evidence of LRTI, no pneumonia in Chest xray. H/o of DVT in right lower ext and s/p IVC filter On Eliquis 5mg Daily ( Patient confirmed that she started taking it since 5 months without any side effects and to be continued for another month as per her primary physician.) Patient had a gastric by pass surgery years ago and had a IVC filter placed (permanently ) as per the patient. Hypertension -Stable with home medication Norvasc 5mg Daily Plan of care explained to the patient. She verbalized understanding. Case seen and discussed with Dr. Guzman. Minutes to complete discharge: 45 Discharge Summary Reason For Visit: PYELONEPHRITIS Current Active Problems Infection with multi-drug resistant microorganisms (Acute) Sepsis (Acute) Condition: Improved - Instructions Diet, Activity, Other Instructions: You had an infection of the urinary tract called " pyelonephritis with ESBL organism" and were treated with IV antibiotics. We are sending you home with a PICC line as you need IV Ertapenem 1 gm (antibiotics) for 5 more days starting tomorrow 09/13/2016. A visiting nurse will be arranged to help you. Please continue taking your home medications. I will add medication for constipation. But please stop if you develop any diarrhoea. Please visit your primary doctor in a week. Return to the Emergency Department if your symptoms worsen or you develop any new symptoms. you need your PICC line removed after finishing your antibiotics. call [phone] ( interventional radiology ) tomorrow and schedule the appointment in advance . if the line stays in place , it can get infected you need blood work in 1 week to be faxed to your PCP. please resume your lasix after 1 week Referrals: Pradeep Overton MD [Primary Care Provider] - 1 Week Disposition: HOME - Home Medications Comprehensive Discharge Medication List: Ambulatory Orders Amlodipine Besylate [Norvasc -] 5 mg PO DAILY 04/07/16 Furosemide [Lasix -] 20 mg PO DAILY 04/07/16 Omeprazole 40 mg PO DAILY 04/07/16 Apixaban [Eliquis] 5 mg PO BID 09/07/16 Docusate Sodium [Colace -] 100 mg PO DAILY #20 capsule 09/12/16 Ertapenem Sodium - 1 Gram [Invanz (Pre-Docked)] 1 gm IVPB DAILY #5 grams Polyethylene Glycol 3350 [Miralax (For Daily Use) -] 17 gm PO DAILY #1 bottle This patient is new to me today: No Emergency Visit: Yes ED Registration Date: 09/07/16 Care time: The patient presented to the Emergency Department on the above date and was hospitalized for further evaluation of their emergent condition. Critical Care patient: No - Discharge Referral Referred to [facility] Med P.C[facility] No
--- NOTE | 2016-09-12 14:47 | PN ---
Teaching Attending Note Name of Resident: Kiki Garcia ATTENDING PHYSICIAN STATEMENT I saw and evaluated the patient. I reviewed the resident's note and discussed the case with the resident. I agree with the resident's findings and plan as documented. SUBJECTIVE: no fever or chills, no abd pain , no flank pain OBJECTIVE: NAD CV: RRR Lungs: CTAB Ext : no edema Abd: soft, ND, NT . R CVA tenderness ASSESSMENT AND PLAN: 46 y/o lady with h/o recurrent UTIs, ESBL , Liposuction in 03/08 , DVT apr 07, IVC filter in 2002, who presented to ER on 09/05 diagnosed with UTI and d/c on bactrim, now presents with fever , and flank pain, was found to have pyelonephritis . 1- Acute ESBL pyelonephritis : cont to improve. today is day 5 on ertapenem . The plan was to send on fosfomycin, but after reviewing the literature, decision was made to continue Ertapenem ( fosfomycin is not approved for complicated UTIs and pyelonephritis , although ESBL might be covered with this drug) this was d/w pt and she agrees 2- STEPHANIE :resolved 3- H/o DVT 04/07, on AC x 6 month . cont eliquis dispo : home with VNS to complete her abx treatment
== END 2016-09-12 16:25 | disposition home or self-care (01) | DRG 872 ==
LOC: JER 16:06 → JERBED 23:10 → UNDOADMIN 23:51 → JERBED 23:51 → J4S 09-08 00:38
PROVIDERS: ADMIT Internal Medicine; ATTEND Internal Medicine
PROC: 02HV33Z Insertion of Infusion Device into Superior Vena Cava, Percutaneous Approach (ICD-10-PCS; principal; 2016-09-12)
PROC: B518YZA Fluoroscopy of Superior Vena Cava using Other Contrast, Guidance (ICD-10-PCS; 2016-09-12)
DX: A41.9 Sepsis, unspecified organism (principal); N10 Acute pyelonephritis; N17.9 Acute kidney failure, unspecified; Z16.12 Extended spectrum beta lactamase (ESBL) resistance; R07.89 Other chest pain; E86.0 Dehydration; E87.6 Hypokalemia; K29.70 Gastritis, unspecified, without bleeding; K21.9 Gastro-esophageal reflux disease without esophagitis; B34.9 Viral infection, unspecified; J06.9 Acute upper respiratory infection, unspecified; I10 Essential (primary) hypertension; M94.0 Chondrocostal junction syndrome [Tietze]
CPT/HCPCS: 36415; 36569; 71010-TC; 71020-TC; 76775-TC; 77001-TC; 80048; 80053; 81003; 81015; 82436; 82550; 82570; 83605; 83690; 83735; 84100; 84133; 84156; 84300; 84484; 84703; 85025; 85027; 85610; 85730; 87040; 87086; 87186; 87254; 87389; 87804; 93005; 93010; 99281-25; 99284-25; C1751

== ENCOUNTER 2016-09-18 15:47 | Emergency (ER) | payer OTHER ==
[2016-09-18 15:56] VITALS: BMI 27.6
--- NOTE | 2016-09-18 17:13 | PDOC ---
History of Present Illness - General Chief Complaint: Pain Stated Complaint: REVISIT FOR EVALUATION/ PICC LINE Time Seen by Provider: 09/18/16 16:44 History Source: Patient Exam Limitations: No Limitations - History of Present Illness Initial Comments: 09/18/16 19:31 Patient came to emergency department with complaints of pain to her right upper arm with a PICC line is inserted. States had a extensive hospitalization with resistant pyelonephritis, and had PICC line inserted for IV home therapy for ANTIBIOTIC. Completed that dosing yesterday, and was told to make appointment with interventional radiology for removal. Patient states called radiology and was told that, IV therapy would remove catheter. Home therapy told her they would not and recommended coming to the emergency department for IV/PICC line removal. 09/18/16 19:31 Occurred: reports: just prior to arrival Severity: reports: mild Pain Location: reports: upper extremity (righth upper arm) Past History - Past Medical History Allergies/Adverse Reactions: Allergies Allergy/AdvReac Type Severity Reaction Status Date / Time Penicillins Allergy Verified 09/18/16 15:50 Home Medications: Ambulatory Orders Amlodipine Besylate [Norvasc -] 5 mg PO DAILY 04/07/16 Furosemide [Lasix -] 20 mg PO DAILY 04/07/16 Omeprazole 40 mg PO DAILY 04/07/16 Apixaban [Eliquis] 5 mg PO BID 09/07/16 Docusate Sodium [Colace -] 100 mg PO DAILY #20 capsule 09/12/16 Anemia: No Asthma: No COPD: No GI Disorders: Yes (gastritis) HTN: Yes Other medical history: UTI - Surgical History Abdominal Surgery: Yes (liposuction, gastric bypass) - Immunization History Immunization Up to Date: Yes - Psycho/Social/Smoking Cessation Hx Anxiety: No Suicidal Ideation: No Smoking History: Never smoked Have you smoked in the past 12 months: No Information on smoking cessation initiated: No Hx Alcohol Use: No Drug/Substance Use Hx: No Substance Use Type: None *Physical Exam - Vital Signs Last Vital Signs Temp Pulse Resp BP Pulse Ox 98.0 F 72 131/80 99 09/18/16 15:52 09/18/16 15:52 09/18/16 15:52 09/18/16 15:52 - Physical Exam General Appearance: Yes: Nourished, Appropriately Dressed. No: Apparent Distress, Mild Distress HEENT: positive: DEMAR, Normal ENT Inspection, TMs Normal, Pharynx Normal Neck: positive: Supple. negative: Tender Respiratory/Chest: positive: Lungs Clear, Normal Breath Sounds. negative: Chest Tender Gastrointestinal/Abdominal: positive: Soft Musculoskeletal: positive: Normal Inspection Extremity: positive: Normal Capillary Refill, Normal Inspection, Normal Range of Motion (strong flexion and extension to fingers and hand, neurovascular intact to fingers, ), Tender (at insertion site of the PICC line to distal aspect of inner upper right arm. No redness, swelling, bruising, but is tender to the area. No exudate, no erythema, no obvious sign of cellulitis. 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 Patient without pain, shortness of breath, chest pain or palpitations, or any complaints of pain to right arm. Neurovascular remains intact. Patient pressure held for approximately 15 minutes with no bleeding, pressure dressing applied patient tolerated procedure well *DC/Admit/Observation/Transfer Diagnosis at time of Disposition: PIC line (peripherally inserted central catheter) removal - Discharge Dispostion Disposition: HOME Condition at time of disposition: Stable Admit: No - Referrals Referrals: Pradeep Overton MD [Primary Care Provider] - - Patient Instructions Additional Instructions: Watch for any redness, swelling, drainage from area and follow-up with private physician Into emergency department for any fever, pain, problems Follow up with private physician this week the catheter tip was removed and sent to microbiology for culture. If positive results, U will be notified - Post Discharge Activity Work/School Note: Back to Work
[2016-09-18 17:38] LABS: URINE APPEARANCE CLEAR; URINE BILIRUBIN NEGATIVE (NEGATIVE); URINE BLOOD NEGATIVE (NEGATIVE); URINE COLOR COLORLESS; URINE GLUCOSE (UA) NEGATIVE (NEGATIVE); URINE KETONE NEGATIVE (NEGATIVE); URINE NITRITE NEGATIVE (NEGATIVE); URINE PROTEIN NEGATIVE (NEGATIVE); URINE UROBILINOGEN NEGATIVE E.U./dl (0.2-1.0)
[2016-09-18 17:40] LABS: URINE LEUK ESTERASE TRACE (NEGATIVE); URINE MUCUS RARE; URINE RBC 1 /hpf (0-3); URINE WBC 1 /hpf (3-5)
[2016-09-18 20:18] VITALS: BP 117/74; PULSE 67; TEMP 98.4
== END 2016-09-18 20:17 | disposition home or self-care (01) ==
LOC: JER 15:47
PROC: 05PYX3Z Removal of Infusion Device from Upper Vein, External Approach (ICD-10-PCS; principal; 2016-09-18)
DX: Z45.2 Encounter for adjustment and management of vascular access device (principal)
CPT/HCPCS: 36590; 71010-TC; 81003; 81015; 87070; 87086; 99282-25

== ENCOUNTER 2016-12-12 16:25 | Inpatient (IN) | payer OTHER ==
--- NOTE | 2016-12-12 18:56 | PDOC ---
History of Present Illness - History of Present Illness Initial Comments: 12/12/16 19:35 The patient is a 46 year old female with a significant past medical history of MDR UTI (last admission in August s/p PICC line for ertapenem) who presents to the emergency room with fever (Tmax 104F), chills, body aches, diffuse headache, nausea, vomiting, suprapubic pain, and pressure on urination since Sunday. She states she experienced these symptoms in August 2016 and in March 2016 when she last had UTIs. The patient states she was prompted to come into the ED because of her persistent fevers. She states she has had a few episodes of emesis, nonbilious/nonbloody, about 1-2 over the last few days. The patient states she has also been feeling chills and generalized body aches since the onset of her fever 5 days ago. She also reports an intermittent, diffuse global headache that improves with tylenol. The patient states she has been taking Tylenol for her fevers, however, states that the Tylenol did not bring her fever down today. She denies any recent travels or sick contacts He denies chest pain, shortness of breath, and dizziness. He denies fever, chills, nausea, vomit, diarrhea and constipation. He denies dysuria, frequency, urgency and hematuria. Allergies: Penicillins Social history: Pt denies toxic habits PCP - Dr. Pradeep Overton ([place]) <Yamileth Alvares - Last Filed: 12/12/16 19:35> <Nikko Tam - Last Filed: 12/12/16 22:43> - General Chief Complaint: Respiratory Stated Complaint: FEVER Time Seen by Provider: 12/12/16 17:28 Past History <Yamileth Alvares - Last Filed: 12/12/16 19:35> - Past Medical History Anemia: No Asthma: No COPD: No GI Disorders: Yes (gastritis) HTN: Yes Other medical history: sleep apnea, DVT - Surgical History Abdominal Surgery: Yes (liposuction, gastric bypass) - Immunization History Immunization Up to Date: Yes - Psycho/Social/Smoking Cessation Hx Anxiety: No Suicidal Ideation: No Smoking History: Never smoked Have you smoked in the past 12 months: No Information on smoking cessation initiated: No Hx Alcohol Use: No Drug/Substance Use Hx: No Substance Use Type: None <Nikko Tam - Last Filed: 12/12/16 22:43> - Past Medical History Allergies/Adverse Reactions: Allergies Allergy/AdvReac Type Severity Reaction Status Date / Time Penicillins Allergy Mild Hives Verified 12/12/16 16:33 Home Medications: Ambulatory Orders Amlodipine Besylate [Norvasc -] 5 mg PO DAILY 04/07/16 Furosemide [Lasix -] 20 mg PO DAILY 04/07/16 Omeprazole 40 mg PO DAILY 04/07/16 Apixaban [Eliquis] 5 mg PO BID 09/07/16 Docusate Sodium [Colace -] 100 mg PO DAILY #20 capsule 09/12/16 Review of Systems - Review of Systems Able to Perform ROS?: Yes Comments:: 12/12/16 19:36 GENERAL/CONSTITUTIONAL: (+) fever, chills and generalized weakness HEAD, EYES, EARS, NOSE AND THROAT: No change in vision. No ear pain or discharge. No sore throat. CARDIOVASCULAR: No chest pain or shortness of breath. RESPIRATORY: No cough, wheezing, or hemoptysis. GASTROINTESTINAL: (+) nausea, vomiting, No diarrhea or constipation. GENITOURINARY: (+) suprapubic pain and pressure on urination, No dysuria, frequency, or change in urination. MUSCULOSKELETAL: No joint or muscle swelling or pain. No neck or back pain. SKIN: No rash NEUROLOGIC: (+) headache, No vertigo, loss of consciousness, or change in strength/sensation. ENDOCRINE: No increased thirst. No abnormal weight change. HEMATOLOGIC/LYMPHATIC: No anemia, easy bleeding, or history of blood clots. ALLERGIC/IMMUNOLOGIC: No hives or skin allergy. <Yamileth Alvares - Last Filed: 12/12/16 19:35> *Physical Exam - Vital Signs Last Vital Signs Temp Pulse Resp BP Pulse Ox 99.9 F H 106 H 19 137/89 98 12/12/16 16:29 12/12/16 16:29 12/12/16 16:29 12/12/16 16:29 12/12/16 16:29 - Physical Exam Comments: 12/12/16 19:36 GENERAL: Awake, alert, and fully oriented, in no acute distress HEAD: No signs of trauma EYES: PERRLA, EOMI, sclera anicteric, conjunctiva clear ENT: Auricles normal inspection, hearing grossly normal, nares patent, oropharynx clear without exudates. dry MM NECK: Normal ROM, supple, no lymphadenopathy, JVD, or masses LUNGS: Breath sounds equal, clear to auscultation bilaterally. No wheezes, and no crackles HEART: Regular rate and rhythm, normal S1 and S2, no murmurs, rubs or gallops ABDOMEN: (+) suprapubic tenderness to palpation and Right CVA tenderness. Soft , normoactive bowel sounds. No guarding, no rebound. No masses EXTREMITIES: Normal range of motion, no edema. No clubbing or cyanosis. No cords, erythema, or tenderness NEUROLOGICAL: Normal speech, cranial nerves intact, negative pronator drift, 5/ 5 strength in all 4 extremities, normal sensation to light touch in all 4 extremities, normal cerebellar exam, normal gait, normal reflexes and tone SKIN: Warm, Dry, normal turgor, no rashes or lesions noted. <Yamileth Alvares - Last Filed: 12/12/16 19:35> - Vital Signs Last Vital Signs Temp Pulse Resp BP Pulse Ox 99.9 F H 106 H 19 137/89 98 12/12/16 16:29 12/12/16 16:29 12/12/16 16:29 12/12/16 16:29 12/12/16 16:29 <Nikko Tam - Last Filed: 12/12/16 22:43> ED Treatment Course - Medications Given in the ED: ED Medications Discontinued Medications Generic Name Dose Route Start Last Admin Trade Name Nixon PRN Reason Stop Dose Admin Ketorolac Tromethamine 15 mg 12/12/16 18:58 12/12/16 19:10 Toradol Injection - IVPUSH 12/12/16 18:59 15 mg ONCE ONE Administration Sodium Chloride 1,000 ml 12/12/16 18:59 12/12/16 19:11 Normal Saline - IV 12/12/16 19:00 1,000 ml ONCE ONE Administration <Yamileth Alvares - Last Filed: 12/12/16 19:35> - LABORATORY CBC & Chemistry Diagram: 12/12/16 19:30 12/12/16 19:30 <Nikko Tam - Last Filed: 12/12/16 22:43> Medical Decision Making - Medical Decision Making 12/12/16 20:25 46-year-old female 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 Exam with right CVA tenderness and suprapubic tenderness to palpation concerning for pyelonephritis. -labs -fried cx -lactate -UA -IVF -reassess 12/12/16 22:26 UA consistent with infection, likely pyelonephritis. I reviewed the patient's previous microbiology and found that the patient is only sensitive to carbepenem 's but is also sensitive to Macrobid. When I discussed with the patient whether she taken Macrobid in the past she reports that she's tried taking Macrobid but her infections have never improved on Macrobid. Given the fact that this is likely a complicated infection, will cover with ertapenem and admit for IV antibiotics. 12/12/16 22:41 Spoke with Rommel Norman pt admitted for further management. <Nikko Tam - Last Filed: 12/12/16 22:43> *DC/Admit/Observation/Transfer - Attestations Scribe Attestion: 12/12/16 19:36 Documentation prepared by Yamileth Alvares, acting as certified medical coding specialist for Nikko Tam MD, <Yamileth Alvares - Last Filed: 12/12/16 19:35> - Discharge Dispostion Admit: Yes - Attestations Physician Attestion: 12/12/16 22:28 I, Dr. Nikko Tam MD, attest that this document has been prepared under my direction and personally reviewed by me in its entirety. I further attest, that it accurately reflects all work, treatment, procedures and medical decision -making performed by me. <Nikko Tam - Last Filed: 12/12/16 22:43> Diagnosis at time of Disposition: Pyelonephritis - Referrals Referrals: Pradeep Overton MD [Primary Care Provider] -
[2016-12-12] MEDS ORDERED: KETOROLAC TROMETHAMINE 15 MG/ML VIAL IVPUSH ONE (18:58)
[2016-12-12] MEDS ORDERED: SODIUM CHLORIDE 0.9% 500 ML INFUS.BAG IV ONE (18:59)
[2016-12-12] MEDS ORDERED: KETOROLAC TROMETHAMINE 15 MG/ML VIAL ONE (19:07)
[2016-12-12 19:45] LABS: URINE APPEARANCE CLEAR; URINE BILIRUBIN NEGATIVE (NEGATIVE); URINE BLOOD 1+ (NEGATIVE); URINE COLOR LTYELLOW; URINE GLUCOSE (UA) NEGATIVE (NEGATIVE); URINE KETONE NEGATIVE (NEGATIVE); URINE NITRITE NEGATIVE (NEGATIVE); URINE PROTEIN NEGATIVE (NEGATIVE); URINE UROBILINOGEN 4.0 E.U/dl mg/dL (0.2-1.0)
[2016-12-12 19:48] LABS: URINE LEUK ESTERASE 2+ (NEGATIVE)
[2016-12-12 19:49] LABS: BASOPHIL 0.4 % (0-2.0); EOSINOPHIL 0.3 % (0-4.5); MCH 27.9 pg (25.7-33.7); MCHC 32.4 g/dl (32.0-36.0); MEAN CELL VOLUME 86.3 fl (80-96); MEAN PLT VOLUME 8.9 fl (7.5-11.1); NEUTROPHILS 77.7 % (42.8-82.8); PLATELET COUNT 216 K/MM3 (134-434); RDW 14.9 % (11.6-15.6); WHITE BLOOD COUNT 7.8 K/mm3 (4.0-10.0)
[2016-12-12 19:53] LABS: URINE BACTERIA RARE /hpf (NONE SEEN); URINE MUCUS MODERATE; URINE RBC <1 /hpf (0-3); URINE WBC 63 /hpf (3-5)
[2016-12-12 20:09] LABS: ALBUMIN 3.2 g/dl (3.4-5.0); ANION GAP 10 (8-16); CALCIUM 9.1 mg/dL (8.5-10.1); CO2 24 mmol/L (21-32); GLUCOSE,RANDOM 90 mg/dL (74-106); SGPT/ALT 16 U/L (12-78)
[2016-12-12 20:12] LABS: ALK PHOS 85 U/L (45-117); BILIRUBIN,TOTAL 0.3 mg/dL (0.2-1.0); TOT PROT 7.3 g/dl (6.4-8.2)
[2016-12-12 20:33] LABS: MAGNESIUM 2.5 mg/dL (1.8-2.4); SGOT/AST 16 U/L (15-37)
[2016-12-12] MEDS ORDERED: ERTAPENEM SODIUM 1 GM/50 ML PRE-DOCKED IVPB ONE (22:21)
[2016-12-12] MEDS ORDERED: morphine CARPU-JECT 4 MG/1 ML DISP.SYRIN IVPUSH ONE (22:24)
[2016-12-12] MEDS ORDERED: morphine CARPU-JECT 2 MG/1 ML DISP.SYRIN ONE (22:37)
[2016-12-12] MEDS ORDERED: ONDANSETRON 4 MG/2 ML VIAL IVPUSH ONE (22:59)
[2016-12-12] MEDS ORDERED: ACETAMINOPHEN 500 MG TABLET (FP) PO ONE (23:00)
--- NOTE | 2016-12-12 23:00 | PN ---
Teaching Attending Note Name of Resident: Maddie Jones ATTENDING PHYSICIAN STATEMENT I saw and evaluated the patient. I reviewed the resident's note and discussed the case with the resident. I agree with the resident's findings and plan as documented. SUBJECTIVE: 46 yo F with Pmhx of UTI MDR, Recently admitted and was found to have ESBL E- coli was sent home with Ertapenum. Presented from home with fever there of 104, nausea, vomiting, and pain, pressure on urination. Also notes vomiting, (non- bloody), about 2 times. Stated she had been taking tylenol for fever OBJECTIVE: Physical: VS: Vital Signs Period Temp Pulse Resp BP Sys/Acosta Pulse Ox Last 24 Hr 99.9 F 106 19 137/89 98 GEN: NAd, Resting in bed HEENT: NCAT, PERRL, throat without erythema or exudates CARD: RRR S1, S2 RESP: CTAB ABD: BSX4, NTD to palpation EXT: - C/C/E CBCD WBC 7.8 K/mm3 (4.0-10.0) D 12/12/16 19:30 RBC 4.67 M/mm3 (3.60-5.2) D 12/12/16 19:30 Hgb 13.1 GM/dL (10.7-15.3) D 12/12/16 19:30 Hct 40.3 % (32.4-45.2) D 12/12/16 19:30 MCV 86.3 fl (80-96) 12/12/16 19:30 MCHC 32.4 g/dl (32.0-36.0) 12/12/16 19:30 RDW 14.9 % (11.6-15.6) 12/12/16 19:30 Plt Count 216 K/MM3 (134-434) D 12/12/16 19:30 MPV 8.9 fl (7.5-11.1) 12/12/16 19:30 CMP Sodium 137 mmol/L (136-145) 12/12/16 19:30 Potassium 3.9 mmol/L (3.5-5.1) 12/12/16 19:30 Chloride 103 mmol/L (98-107) 12/12/16 19:30 Carbon Dioxide 24 mmol/L (21-32) 12/12/16 19:30 Anion Gap 10 (8-16) 12/12/16 19:30 BUN 8 mg/dL (7-18) 12/12/16 19:30 Creatinine 1.0 mg/dL (0.55-1.02) 12/12/16 19:30 Creat Clearance w eGFR > 60 (>60) 12/12/16 19:30 Random Glucose 90 mg/dL (74-106) 12/12/16 19:30 Calcium 9.1 mg/dL (8.5-10.1) 12/12/16 19:30 Total Bilirubin 0.3 mg/dL (0.2-1.0) 12/12/16 19:30 AST 16 U/L (15-37) 12/12/16 19:30 ALT 16 U/L (12-78) D 12/12/16 19:30 Alkaline Phosphatase 85 U/L (45-117) 12/12/16 19:30 Total Protein 7.3 g/dl (6.4-8.2) D 12/12/16 19:30 Albumin 3.2 g/dl (3.4-5.0) L D 12/12/16 19:30 ASSESSMENT AND PLAN: 46 F with pmhx of With hx. of MDR UTI 1.) UTI - E. Coli- ESBL - U Cx - Ertapenum - ID consult - IVF - Zofran prn nausea 2.) Dvt PPX - Low Risk- Ambulate - Rest as per resident note - Place in Med-Sx
[2016-12-12] MEDS ORDERED: ACETAMINOPHEN 325 MG TABLET (FP) ONE (23:02)
[2016-12-12] MEDS ORDERED: ONDANSETRON 4 MG/2 ML VIAL ONE (23:02)
[2016-12-13] MEDS: SODIUM CHLORIDE 1,000 ML IV SCH ×2 (00:19→21:10)
--- NOTE | 2016-12-13 00:57 | HP ---
CHIEF COMPLAINT: subjective fever and whole body aches PCP: Dr. Pradeep Overton ([place]) HISTORY OF PRESENT ILLNESS: 46yo F with PMH multiple drug resistant UTI, presents c/o subjective Tmax 105.6 , chills, body aches, headache, nausea, vomiting, blurred vision, dizziness, suprapubic pain. Pt reports symptoms began 12/08/16 (4 days ago). Pt was previously admitted to this hospital on August 2016, May 2016 and March 2016, found to have ESBL E-coli UTIs on these occasions and was sent home on Ertapenum. Pt took Tylenol for fever, but she reports Tylenol did not relieve the fever today prompting her to come to the ER. Temp here is 99.9. During interview, pt had one episode of nbnb vomiting, and began c/o of atypical substernal chest pain. Pt described pain as tightness, non-radiating, 10/10. Pain was reproducible by pressing on the xiphoid area. Upon f/u 10 minutes later, atypical chest pain had reduced in severity to 6/10 with no intervention. Pt denies sick contacts, SOB. ER course was notable for: (1) EKG revealing NSR (2) Urine culture, blood culture (3) Toradol, NS 1 L bolus, Morphine, Ertapenem, Zofran, Tylenol Recent Travel: none PAST MEDICAL HISTORY: gastritis HTN DVT sleep apnea PAST SURGICAL HISTORY: liposuction, gastric bypass Social History: Smoking: never smoked Alcohol: none Drugs: none Family History: mother: htn, dm, of pelvic ca at age 71. Allergies Penicillins Allergy (Mild, Verified 12/12/16 16:33) Hives HOME MEDICATIONS: Home Medications Medication Instructions Recorded Amlodipine Besylate [Norvasc -] 5 mg PO DAILY 04/07/16 Furosemide [Lasix -] 20 mg PO DAILY 04/07/16 Omeprazole 40 mg PO DAILY 04/07/16 Apixaban [Eliquis] 5 mg PO BID 09/07/16 Docusate Sodium [Colace -] 100 mg PO DAILY #20 capsule 09/12/16 REVIEW OF SYSTEMS CONSTITUTIONAL: Present: fever, chills Absent: diaphoresis, generalized weakness, malaise, loss of appetite, weight change HEENT: Present: blurred vision, ear pain CARDIOVASCULAR: Present: atypical chest pain Absent: syncope, palpitations, irregular heart rate, lightheadedness, peripheral edema RESPIRATORY: Absent: cough, shortness of breath, dyspnea with exertion, orthopnea, wheezing, stridor GASTROINTESTINAL: Present: nausea, vomiting Absent: abdominal pain, abdominal distension, diarrhea, constipation GENITOURINARY: Present: dysuria SKIN: Absent: rash, itching, pallor NEUROLOGIC: Present: bladder incontinence with vomiting, headache, dizziness Absent: focal weakness or paresthesias, unsteady gait, mental status changes Last Vital Signs Temp Pulse Resp BP Pulse Ox 99.9 F H 106 H 19 137/89 98 12/12/16 16:29 12/12/16 16:29 12/12/16 16:29 12/12/16 16:29 12/12/16 16:29 PHYSICAL EXAMINATION GENERAL: Awake, alert, and fully oriented, in moderate distress. HEAD: Normal with no signs of trauma. EYES: Extraocular movements intact, sclera anicteric, conjunctiva clear. No lid lag. EARS, NOSE, THROAT: Dry mucous membranes. NECK: No JVD, or masses. LUNGS: Breath sounds equal, clear to auscultation bilaterally. No wheezes, and no crackles. No accessory muscle use. HEART: Regular rate and rhythm, normal S1 and S2 without murmur, rub or gallop. ABDOMEN: suprapubic pain otherwise nontender to palpation, soft, not distended, normoactive bowel sounds, no guarding, no rebound, no masses. MUSCULOSKELETAL: (+) CVA tenderness. LOWER EXTREMITIES: Warm, well-perfused. No calf tenderness. No peripheral edema. NEUROLOGICAL: Normal speech. PSYCHIATRIC: Cooperative. Good eye contact. Appropriate mood and affect. SKIN: Warm, dry, normal turgor, no rashes or lesions noted. Laboratory Last Values WBC 7.8 K/mm3 (4.0-10.0) D 12/12/16 19:30 RBC 4.67 M/mm3 (3.60-5.2) D 12/12/16 19:30 Hgb 13.1 GM/dL (10.7-15.3) D 12/12/16 19:30 Hct 40.3 % (32.4-45.2) D 12/12/16 19:30 MCV 86.3 fl (80-96) 12/12/16 19:30 MCH 27.9 pg (25.7-33.7) 12/12/16 19:30 MCHC 32.4 g/dl (32.0-36.0) 12/12/16 19:30 RDW 14.9 % (11.6-15.6) 12/12/16 19:30 Plt Count 216 K/MM3 (134-434) D 12/12/16 19:30 MPV 8.9 fl (7.5-11.1) 12/12/16 19:30 Neutrophils % 77.7 % (42.8-82.8) 12/12/16 19:30 Lymphocytes % 8.5 % (8-40) D 12/12/16 19:30 Monocytes % 13.1 % (3.8-10.2) H 12/12/16 19:30 Eosinophils % 0.3 % (0-4.5) D 12/12/16 19:30 Basophils % 0.4 % (0-2.0) 12/12/16 19:30 Sodium 137 mmol/L (136-145) 12/12/16 19:30 Potassium 3.9 mmol/L (3.5-5.1) 12/12/16 19:30 Chloride 103 mmol/L (98-107) 12/12/16 19:30 Carbon Dioxide 24 mmol/L (21-32) 12/12/16 19:30 Anion Gap 10 (8-16) 12/12/16 19:30 BUN 8 mg/dL (7-18) 12/12/16 19:30 Creatinine 1.0 mg/dL (0.55-1.02) 12/12/16 19:30 Creat Clearance w eGFR > 60 (>60) 12/12/16 19:30 Random Glucose 90 mg/dL (74-106) 12/12/16 19:30 Lactic Acid 0.7 mmol/L (0.4-2.0) 12/12/16 20:56 Calcium 9.1 mg/dL (8.5-10.1) 12/12/16 19:30 Magnesium 2.5 mg/dL (1.8-2.4) H 12/12/16 19:30 Total Bilirubin 0.3 mg/dL (0.2-1.0) 12/12/16 19:30 AST 16 U/L (15-37) 12/12/16 19:30 ALT 16 U/L (12-78) D 12/12/16 19:30 Alkaline Phosphatase 85 U/L (45-117) 12/12/16 19:30 Total Protein 7.3 g/dl (6.4-8.2) D 12/12/16 19:30 Albumin 3.2 g/dl (3.4-5.0) L D 12/12/16 19:30 Urine Color Ltyellow 12/12/16 19:30 Urine Appearance Clear 12/12/16 19:30 Urine pH 8.0 (5.0-8.0) D 12/12/16 19:30 Ur Specific [place] 1.015 (1.005-1.025) 12/12/16 19:30 Urine Protein Negative (NEGATIVE) 12/12/16 19:30 Urine Glucose (UA) Negative (NEGATIVE) 12/12/16 19:30 Urine Ketones Negative (NEGATIVE) 12/12/16 19:30 Urine Blood 1+ (NEGATIVE) H 12/12/16 19:30 Urine Nitrite Negative (NEGATIVE) 12/12/16 19:30 Urine Bilirubin Negative (NEGATIVE) 12/12/16 19:30 Urine Urobilinogen 4.0 e.u/dl mg/dL (0.2-1.0) H 12/12/16 19:30 Ur Leukocyte Esterase 2+ (NEGATIVE) H D 12/12/16 19:30 Urine RBC <1 /hpf (0-3) 12/12/16 19:30 Urine WBC 63 /hpf (3-5) 12/12/16 19:30 Ur Epithelial Cells Rare /hpf (FEW) 12/12/16 19:30 Urine Bacteria Rare /hpf (NONE SEEN) 12/12/16 19:30 Urine Mucus Moderate 12/12/16 19:30 Urine HCG, Qual Negative 12/12/16 19:30 ASSESSMENT/PLAN: 46yo F with PMH of MDR UTI, presents c/o subjective Tmax 105.6, body aches, vomiting, suprapubic pain admitted to Med-Surg for pyelonephritis. 1) pyelonephritis - likely 2/2 MDR UTI - ID Consult - for antibiotic - f/u urine culture - contact isolation precautions - cont. NS 75 ml/hr for hydration - Toradol 15mg q6hr prn for pain 2) atypical chest pain - likely musculoskeletal 2/2 retching with vomiting vs ACS - f/u troponins 3) hx of DVT - cont. home med of Eliquis 4) HTN - cont. home med of Norvasc 5) FEN - Fluids: NS @ 75 ml/hr - Electrolytes: wnl, cont. to monitor - Nutrition: npo 6) prophylaxis - early ambulation and cont. home med of Eliquis for DVT prophylaxis Visit type - Emergency Visit Emergency Visit: Yes ED Registration Date: 12/12/16 Care time: The patient presented to the Emergency Department on the above date and was hospitalized for further evaluation of their emergent condition. - New Patient This patient is new to me today: Yes Date on this admission: 12/13/16 - Critical Care Critical Care patient: No
[2016-12-13 08:19] LABS: MCH 27.8 pg (25.7-33.7); MCHC 32.6 g/dl (32.0-36.0); MEAN CELL VOLUME 85.3 fl (80-96); MEAN PLT VOLUME 8.6 fl (7.5-11.1); PLATELET COUNT 194 K/MM3 (134-434); RDW 15.1 % (11.6-15.6); WHITE BLOOD COUNT 6.2 K/mm3 (4.0-10.0)
[2016-12-13 09:02] LABS: CPK 27 IU/L (26-192); TROPONIN I < 0.02 ng/ml (0.00-0.05)
[2016-12-13 09:03] LABS: ANION GAP 7 (8-16); CALCIUM 8.1 mg/dL (8.5-10.1); CO2 24 mmol/L (21-32); CREATININE 0.9 mg/dL (0.55-1.02); GLUCOSE,RANDOM 99 mg/dL (74-106); MAGNESIUM 2.2 mg/dL (1.8-2.4)
--- NOTE | 2016-12-13 09:42 | PN ---
Physical Exam: SUBJECTIVE: Patient seen and examined this AM. Still endorses suprapubic pain, CVA tenderness, and dysuria. Chest pain has resolved. No fevers, no chills, no CP, no SOB. Fever has resolved. OBJECTIVE: Vital Signs Period Temp Pulse Resp BP Sys/Acosta Pulse Ox Last 24 Hr 98.4 F-99.9 F 58-72 20-130 130-146/73-98 GEN: AAOx3, NAD HEENT: PERRLA, EOMi CV: S1, S2, RRR LUNG: CTABL ABD: Soft, TTP in epigastric region, ND, hypoactive BS MSK: TTP in CVA bilaterally Neuro: CN 2-12 intact, no sensation or MSK deficits, reflexes 2+ Laboratory Results - last 24 hr 12/13/16 12/13/16 12/13/16 06:30 06:30 07:00 WBC 6.2 RBC 4.01 Hgb 11.2 D Hct 34.2 D MCV 85.3 MCH 27.8 MCHC 32.6 RDW 15.1 Plt Count 194 MPV 8.6 Sodium 137 Potassium 3.8 Chloride 106 Carbon Dioxide 24 Anion Gap 7 L BUN 7 Creatinine 0.9 Random Glucose 99 Calcium 8.1 L Magnesium 2.2 Creatine Kinase 27 Troponin I < 0.02 Active Medications Generic Name Dose Route Start Last Admin Trade Name Freq PRN Reason Stop Dose Admin Amlodipine Besylate 5 mg 12/13/16 10:00 Norvasc - PO DAILY BRAD Apixaban 5 mg 12/13/16 10:00 Eliquis - PO BID BRAD Docusate Sodium 100 mg 12/13/16 10:00 Colace - PO DAILY BRAD Ertapenem 1 gm 12/14/16 10:00 Invanz (Pre-Docked) IVPB DAILY BRAD Furosemide 20 mg 12/13/16 10:00 Lasix - PO DAILY BRAD Sodium Chloride 1,000 mls @ 75 mls/hr 12/13/16 00:15 12/13/16 00:19 Normal Saline - IV 75 mls/hr ASDIR BRAD Administration Ketorolac Tromethamine 15 mg 12/13/16 00:08 Toradol Injection - IVPUSH 12/18/16 00:07 Q6H PRN PAIN ASSESSMENT/PLAN: Ms. Sawant is a 46yo F with history of ESBL UTI who presents with suprapubic pain, dysuria, CVA tenderness, and fevers. She was admitted for Pyelonephritis. # Likely Pyelonephritis - Pt previously had ESBL UTI treated w/ Ertapenem IV - Started on Ertapenem 1g daily - Ucx pending - F/u kidney and bladder ultrasound to r/o retention or complication - Contact isolation - Tylenol 650mg Q6 PRN - Toradol 15mg Q6 PRN for pain # Atypical Chest Pain - resolved - Likely MSK on exam, 2/2 retching w/ vomitting - Troponin <0.02 # Hx of DVT - Continue Eliquis # Hx of HTN - well controlled - Continue Norvasc + Furosemide # Hx of Constipation - Continue Colace # FEN - Fluids: NS 75cc/hr - Electrolytes: WNL - Nutrition: Will provide sodium controlled diet, if able to tolerate, can d/c fluids # Prophylaxis - DVT: Low risk, SCDs - GI: Not needed - Deconditioning: PT not needed, pt is ambulating # Disposition - F/u Ucx, continue IV abx - F/u ID reccs - Consider urology consult based on results of sonogram Visit type - Emergency Visit Emergency Visit: No - New Patient This patient is new to me today: No - Critical Care Critical Care patient: No - Discharge Referral Referred to [facility] No
[2016-12-13] MEDS ORDERED: PATIENT'S OWN MEDICATION (NON-FORMULARY) (Omeprazole 40 MG) PO SCH (10:00)
[2016-12-13] MEDS: DOCUSATE SODIUM 100 MG CAPSULE (FP) PO SCH (10:42)
[2016-12-13] MEDS: amLODIPine BESYLATE 5 MG TABLET (FP) PO SCH (10:42)
[2016-12-13] MEDS: FUROSEMIDE 20 MG TABLET (FP) PO SCH (10:42)
--- NOTE | 2016-12-13 11:15 | EKG ---
Test Reason : Blood Pressure : / mmHG Vent. Rate : 081 BPM Atrial Rate : 081 BPM P-R Int : 156 ms QRS Dur : 076 ms QT Int : 358 ms P-R-T Axes : 016 003 033 degrees QTc Int : 415 ms NORMAL SINUS RHYTHM NORMAL ECG WHEN COMPARED WITH ECG OF 07-SEP-2016 21:09, NO SIGNIFICANT CHANGE WAS FOUND Confirmed by KIANNA HALL MD ([id number]) on 12/13/2016 11:15:30 AM Referred By: Confirmed By:KIANNA HALL MD
[2016-12-13] MEDS: ERTAPENEM SODIUM 1 GM in SODIUM CHLORIDE 50 ML IVPB SCH (12:20)
[2016-12-13] MEDS: KETOROLAC TROMETHAMINE 15 MG/ML VIAL IVPUSH PRN (12:27)
[2016-12-13] MEDS: APIXABAN 5 MG TABLET PO SCH ×2 (13:14→21:11)
--- NOTE | 2016-12-13 13:59 | PN ---
Progress Note (short form) - Note Progress Note: ID consult dictated imp/recced 46 year old female with pmh of gastric bypass 2003 s/p liposuction in February 2016 in on return in march she was diagnosed with DVT and ecoli esbl UTI since then she has had UTI 2 more times, may 2016 and 08/2016 in August she was treated with ertapenem for 10 days via picc line she reports seeing a urologist as an outpt and having a sonogram no history of renal stones good hygiene no barrier contraceptions one partner (her ) fever vomiting, suprapubic pain, back pain since sunday suspect recurrent UTI/pyelonephritis agree with ertapenem hydration renal and bladder sonogram consider urology consult based on results of sonogram contact isolation for esbl ecoli
[2016-12-13] MEDS: ACETAMINOPHEN 650 MG/20.3 ML ORAL SOLUTION (CUPS) PO PRN (16:32)
--- NOTE | 2016-12-13 19:36 | CONS ---
DATE OF CONSULTATION: DATE OF DICTATION: 12/13/2016 INFECTIOUS DISEASE CONSULTATION REQUESTING PHYSICIAN: [facility] CONSULTING PHYSICIAN: Marjorie Linda M.D. HISTORY OF PRESENT ILLNESS: This is a 46-year-old who has a past medical history of gastric bypass in 2002. At that time, she had an IVC filter placed, which apparently her surgeon did routinely. Last February, she went to the [facility] and had liposuction of her arms and her back. Upon return in March, she was admitted to [facility] with a right lower extremity DVT and an E. coli ESBL UTI. She was treated at discharge. The UTI recurred in May when she got treated with Macrobid, and again in August when she was admitted with fever and chills at home, and she was admitted for E. coli UTI bacteremia. She was put on ertapenem and treated via PICC line for about 10 days. She has been well since that time. She had a renal sonogram in August that was unremarkable, and she had a prior CAT scan in March of 2016 of an abdomen and pelvis, with the kidneys unremarkable as well. After her discharge in August, she saw a urologist and had what sounds like a sonogram, no cystogram, and was told everything was fine. She now returns with symptoms of dysuria, fevers, chills, vomiting, back pain, flank pain, since Sunday that has been worsening. She reports high-grade fever at home, was 99.9 in the emergency room. She was admitted for further management. She had 1 episode of vomiting yesterday, since today has stopped vomiting. She was started empirically on ertapenem given the prior history of recurrent E. coli ESBL organisms. On further questioning, she reports she is sexually active. She has 1 partner, her . There is no barrier contraception used. She has good perineal hygiene, she voids after having sex. She does not douche. She reports she had no postvoid residual when she was at the urologist. She is allergic to PENICILLIN but tolerates carbapenem. PAST MEDICAL HISTORY: Notable for history of recurrent E. coli ESBL UTI. She has a history of gastritis, hypertension, right lower extremity DVT, and sleep apnea. SURGICAL HISTORY: Notable for liposuction in February of this year as well as gastric bypass in 2002, at which time also an IVC filter was placed. SOCIAL HISTORY: She is . She lives at home with her . She has 3 children. She does not work. She is originally from the [place]. She is followed by a Dr. Pradeep Overton in [place]. There is no history of any cigarette or substance use. ALLERGIES: She is allergic to PENICILLIN which gives her hives. MEDICATIONS AT HOME: Include amlodipine, Lasix, omeprazole, Eliquis, and Colace. FAMILY HISTORY: Notable for hypertension and diabetes. Her mother is at age 71. REVIEW OF SYSTEMS: Currently she is feeling better. She notices some intermittent low-grade fever. She still reports suprapubic discomfort and bilateral flank pain. Her vomiting has stopped. PHYSICAL EXAMINATION: Vital signs: Her T-max is 99.9, current temperature is 98.4, pulse 58, blood pressure 130/73, respiratory rate 20. HEENT: Normocephalic. Eyes are anicteric. Neck: Supple. She has no thrush. Lungs: Clear to auscultation. Heart: Regular rate and rhythm. Abdomen: Soft, nontender. She has some mild suprapubic discomfort and some mild CVA tenderness. Extremities: Without edema. She has a tattoo on her back. Skin: She has liposuction scars on both her arms as well as trocar scars on her back. On her lower abdomen, she has a large horizontal incision which she states is the site of a prior tummy tuck. She is HIV negative from August of this year. Her white count is 7.8 on admission, this morning 6.2. Her BUN and creatinine are 7 and 0.9. LFTs are normal. Urinalysis has 63 white cells with 2+ leukocyte esterase. Her urine test is negative. IMPRESSION: In summary, this is a 46-year-old woman with recurrent urinary tract infection. I would agree with ertapenem and hydration, renal bladder sonogram. I would continue contact isolation. Would consider based on the results of sonogram , would consider urology evaluation if needed. Further recommendations to follow. Case was discussed with staff. Kee [id number]
[2016-12-14] MEDS: SODIUM CHLORIDE 1,000 ML IV SCH ×2 (01:00→10:33)
[2016-12-14] MEDS: ACETAMINOPHEN 650 MG/20.3 ML ORAL SOLUTION (CUPS) PO PRN (06:39)
--- NOTE | 2016-12-14 08:20 | PN ---
Teaching Attending Note Name of Resident: Cris Guillen ATTENDING PHYSICIAN STATEMENT I saw and evaluated the patient. I reviewed the resident's note and discussed the case with the resident. I agree with the resident's findings and plan as documented. SUBJECTIVE: Patient complains of suprapubic pain. OBJECTIVE: HEART: S1S2, RRR LUNGS: Clear ABDOMEN: Soft, non-tender, non-distended, normal BS, (+) B/L CVA tenderness EXTREMITIES: No edema ASSESSMENT AND PLAN: This is a 46 year old woman with a history of MDR UTI, HTN who presented to the ER complaining of fever, body aches, vomiting, suprapubic pain. 1. Acute pyelonephritis - Has history of MDR UTI - Continue Invanz - Follow up urine culture 2. Atypical chest pain - Likely musculoskeletal - Resolved 3. History of DVT - Continue Eliquis 4. HTN - Continue Norvasc
[2016-12-14] MEDS ORDERED: ERTAPENEM SODIUM 1 GM/50 ML PRE-DOCKED IVPB SCH (10:00)
[2016-12-14] MEDS ORDERED: PT OWN MED DRAWER 7, Y5N ONE (10:23)
[2016-12-14] MEDS: FUROSEMIDE 20 MG TABLET (FP) PO SCH (10:29)
[2016-12-14] MEDS: DOCUSATE SODIUM 100 MG CAPSULE (FP) PO SCH (10:29)
[2016-12-14] MEDS: amLODIPine BESYLATE 5 MG TABLET (FP) PO SCH (10:29)
[2016-12-14] MEDS: APIXABAN 5 MG TABLET PO SCH ×2 (10:30→21:53)
[2016-12-14] MEDS: ERTAPENEM SODIUM 1 GM in SODIUM CHLORIDE 50 ML IVPB SCH (10:33)
[2016-12-14 11:28] LABS: MCH 27.8 pg (25.7-33.7); MCHC 32.4 g/dl (32.0-36.0); MEAN CELL VOLUME 85.9 fl (80-96); MEAN PLT VOLUME 8.7 fl (7.5-11.1); PLATELET COUNT 197 K/MM3 (134-434); RDW 15.5 % (11.6-15.6)
[2016-12-14 12:38] VITALS: BMI 27.8
--- NOTE | 2016-12-14 14:44 | PN ---
Teaching Attending Note Name of Resident: Cris Guillen ATTENDING PHYSICIAN STATEMENT I saw and evaluated the patient. I reviewed the resident's note and discussed the case with the resident. I agree with the resident's findings and plan as documented. SUBJECTIVE: No complaints. Had temp 103.0 today. OBJECTIVE: Vital Signs Period Temp Pulse Resp BP Sys/Acosta Pulse Ox Last 24 Hr 98.0 F-103.0 F 57-108 20-22 122-143/53-84 100 HEART: S1S2, tachycardic LUNGS: Clear ABDOMEN: Soft, non-tender, non-distended, normal BS EXTREMITIES: No edema ASSESSMENT AND PLAN: This is a 46 year old woman with a history of MDR UTI, HTN who presented to the ER complaining of fever, body aches, vomiting, suprapubic pain. 1. Sepsis secondary to acute pyelonephritis - Has history of MDR UTI - Continue Invanz - Urine culture growing gram negative rods - Blood cultures negative so far 2. Atypical chest pain - Likely musculoskeletal - Resolved 3. History of DVT - Continue Eliquis 4. HTN - Continue Norvasc, Lasix
--- NOTE | 2016-12-14 16:20 | PN ---
Progress Note, Physician History of Present Illness: No complaints denies dysuria/ hematuria No suprapubic or flank pain No fever/ chills Temps down WBC WNL - Current Medication List Current Medications: Active Medications Acetaminophen (Tylenol Oral Solution -) 650 mg PO Q6H PRN PRN Reason: FEVER OR PAIN Last Admin: 12/14/16 06:39 Dose: 650 mg Amlodipine Besylate (Norvasc -) 5 mg PO DAILY [facility] Last Admin: 12/14/16 10:29 Dose: 5 mg Apixaban (Eliquis -) 5 mg PO BID [facility] Last Admin: 12/14/16 10:30 Dose: 5 mg Docusate Sodium (Colace -) 100 mg PO DAILY [facility] Last Admin: 12/14/16 10:29 Dose: 100 mg Furosemide (Lasix -) 20 mg PO DAILY [facility] Last Admin: 12/14/16 10:29 Dose: 20 mg Sodium Chloride (Normal Saline -) 1,000 mls @ 75 mls/hr IV ASDIR [facility] Last Admin: 12/14/16 10:33 Dose: 75 mls/hr Ertapenem 1 gm/ Sodium (Chloride) 50 mls @ 100 mls/hr IVPB DAILY [facility] Last Admin: 12/14/16 10:33 Dose: 100 mls/hr Ketorolac Tromethamine (Toradol Injection -) 15 mg IVPUSH Q6H PRN PRN Reason: PAIN Stop: 12/18/16 00:07 Last Admin: 12/13/16 12:27 Dose: 15 mg - Objective Vital Signs: Vital Signs Temperature 98.0 F 12/14/16 14:00 Pulse Rate 57 L 12/14/16 14:00 Respiratory Rate 20 12/14/16 14:00 Blood Pressure 130/84 12/14/16 14:00 O2 Sat by Pulse Oximetry (%) 100 12/13/16 21:00 Constitutional: Yes: No Distress Eyes: Yes: Conjunctiva Clear Cardiovascular: Yes: Regular Rate and Rhythm, S1, S2 Respiratory: Yes: CTA Bilaterally Gastrointestinal: Yes: Normal Bowel Sounds, Soft. No: Tenderness Labs: CBC, BMP 12/14/16 06:00 12/13/16 06:30 Assessment/Plan Recurrent UTI Hx ESBL Fever- resolved Await final c/s Continue ertapenem Contact precautions
[2016-12-14] MEDS: KETOROLAC TROMETHAMINE 15 MG/ML VIAL IVPUSH PRN (17:19)
--- NOTE | 2016-12-14 18:50 | PN ---
Physical Exam: SUBJECTIVE: Patient seen and examined this AM. No CP, no SOB. No abdominal pain , no CVA tenderness. OBJECTIVE: Vital Signs Period Temp Pulse Resp BP Sys/Acosta Pulse Ox Last 24 Hr 98.0 F-98.9 F 57-67 20-20 122-131/53-84 100 GEN: AAOx3, NAD HEENT: PERRLA, EOMi CV: S1, S2, RRR LUNG: CTABL ABD: Soft, TTP in epigastric region, ND, hypoactive BS MSK: TTP in CVA bilaterally Neuro: CN 2-12 intact, no sensation or MSK deficits, reflexes 2+ Laboratory Results - last 24 hr 12/14/16 06:00 WBC 7.0 RBC 4.09 Hgb 11.4 Hct 35.1 MCV 85.9 MCH 27.8 MCHC 32.4 RDW 15.5 Plt Count 197 MPV 8.7 Active Medications Generic Name Dose Route Start Last Admin Trade Name Freq PRN Reason Stop Dose Admin Acetaminophen 650 mg 12/13/16 16:24 12/14/16 06:39 Tylenol Oral Solution - PO 650 mg Q6H PRN Administration FEVER OR PAIN Amlodipine Besylate 5 mg 12/13/16 10:00 12/14/16 10:29 Norvasc - PO 5 mg DAILY BRAD Administration Apixaban 5 mg 12/13/16 10:00 12/14/16 10:30 Eliquis - PO 5 mg BID BRAD Administration Docusate Sodium 100 mg 12/13/16 10:00 12/14/16 10:29 Colace - PO 100 mg DAILY BRAD Administration Furosemide 20 mg 12/13/16 10:00 12/14/16 10:29 Lasix - PO 20 mg DAILY BRAD Administration Sodium Chloride 1,000 mls @ 75 mls/hr 12/13/16 00:15 12/14/16 10:33 Normal Saline - IV 75 mls/hr ASDIR BRAD Administration Ertapenem 1 gm/ Sodium 50 mls @ 100 mls/hr 12/13/16 10:15 12/14/16 10:33 Chloride IVPB 100 mls/hr DAILY BRAD Administration Ketorolac Tromethamine 15 mg 12/13/16 00:08 12/14/16 17:19 Toradol Injection - IVPUSH 12/18/16 00:07 15 mg Q6H PRN Administration PAIN ASSESSMENT/PLAN: Ms. Sawant is a 46yo F with history of ESBL UTI who presents with suprapubic pain, dysuria, CVA tenderness, and fevers. She was admitted for Pyelonephritis. # Likely Pyelonephritis - Pt previously had ESBL UTI treated w/ Ertapenem IV - Started on Ertapenem 1g daily day 2 - Ucx GNB - Bladder and renal ultrasound is negative - Contact isolation - Tylenol 650mg Q6 PRN - Toradol 15mg Q6 PRN for pain # Atypical Chest Pain - resolved - Likely MSK on exam, 2/2 retching w/ vomiting - Troponin <0.02 # Hx of DVT - Continue Eliquis # Hx of HTN - well controlled - Continue Norvasc + Furosemide # Hx of Constipation - Continue Colace # FEN - Fluids: d/c'd - Electrolytes: WNL - Nutrition: Sodium controlled diet # Prophylaxis - DVT: Low risk, SCDs - GI: Not needed - Deconditioning: PT not needed, pt is ambulating # Disposition - F/u Ucx, continue IV abx - F/u ID reccs Visit type - Emergency Visit Emergency Visit: No - New Patient This patient is new to me today: No - Critical Care Critical Care patient: No - Discharge Referral Referred to [facility] No
[2016-12-15] MEDS: ACETAMINOPHEN 650 MG/20.3 ML ORAL SOLUTION (CUPS) PO PRN ×2 (01:52→10:05)
[2016-12-15] MEDS ORDERED: PT OWN MED DRAWER 7, Y5N ONE ×2 (06:44→09:34)
[2016-12-15 08:46] LABS: MCH 27.5 pg (25.7-33.7); MCHC 32.1 g/dl (32.0-36.0); MEAN CELL VOLUME 85.6 fl (80-96); PLATELET COUNT 296 K/MM3 (134-434); RDW 15.5 % (11.6-15.6); WHITE BLOOD COUNT 6.1 K/mm3 (4.0-10.0)
[2016-12-15] MEDS: FUROSEMIDE 20 MG TABLET (FP) PO SCH (10:06)
[2016-12-15] MEDS: APIXABAN 5 MG TABLET PO SCH (10:07)
[2016-12-15] MEDS: ERTAPENEM SODIUM 1 GM in SODIUM CHLORIDE 50 ML IVPB SCH (10:07)
[2016-12-15] MEDS: amLODIPine BESYLATE 5 MG TABLET (FP) PO SCH (10:07)
[2016-12-15] MEDS ORDERED: PICC LINE 8 ML FLUSH PROTOCOL IVPUSH PRN (11:39)
--- NOTE | 2016-12-15 13:44 | PN ---
Progress Note (short form) - Note Progress Note: feels well ready to go home Vital Signs Period Temp Pulse Resp BP Sys/Acosta Pulse Ox Last 24 Hr 98.0 F-98.8 F 57-76 18-20 106-140/61-84 100 cor-rrr lungs clear abd soft,nt ext no edema CBC, BMP 12/15/16 07:00 12/13/16 06:30 Microbiology 12/13/16 12:07 Blood - Peripheral Venous Blood Culture - Preliminary NO GROWTH OBTAINED AFTER 48 HOURS, INCUBATION TO CONTINUE FOR 3 DAYS. 12/13/16 12:00 Blood - Peripheral Venous Blood Culture - Preliminary NO GROWTH OBTAINED AFTER 48 HOURS, INCUBATION TO CONTINUE FOR 3 DAYS. 12/12/16 19:30 Urine - Urine Clean Catch Urine Culture - Final Escherichia Coli Esbl Wage Hand a/p recurrent UTI/pyelonephritis-ecoli esbl- no po options ertapenem day #4 will plan total 14 days she had a rash to macrobid- will add to allergies d/w patient reccd outpt urology evaluation
--- NOTE | 2016-12-15 14:16 | DS ---
Physical Exam: SUBJECTIVE: Patient seen and examined this AM. No complaints. No abdominal pain , no back pain, no fevers overnight, no chills. Feels ready for discharge OBJECTIVE: Vital Signs Period Temp Pulse Resp BP Sys/Acosta Pulse Ox Last 24 Hr 98.3 F-98.8 F 60-76 18-20 106-140/61-70 100 PHYSICAL EXAM GEN: AAOx3, NAD HEENT: PERRLA, EOMi CV: S1, S2, RRR LUNG: CTABL ABD: Soft, TTP in epigastric region, ND, hypoactive BS MSK: TTP in CVA bilaterally Neuro: CN 2-12 intact, no sensation or MSK deficits, reflexes 2+ LABS Laboratory Results - last 24 hr 12/15/16 07:00 WBC 6.1 RBC 4.41 Hgb 12.1 Hct 37.7 MCV 85.6 MCH 27.5 MCHC 32.1 RDW 15.5 Plt Count 296 D MPV 8.0 HOSPITAL COURSE: Date of Admission:12/12/16 Date of Discharge: 12/15/16 Ms. Sawant is a 46yo F with history of ESBL UTI who presents with suprapubic pain, dysuria, CVA tenderness, and fevers. She was admitted for Pyelonephritis. # Pyelonephritis - The patient was started on IV Ertapenem in the ER due to previous ESBL+ urine. A bladder and renal ultrasound showed no acute pathology. She was followed by Infectious Disease doctors in the hospital. Urine cultures revealed ESBL antique furniture reproducer, the same bacteria present previously. Since she is allergic to nitrofurantoin (macrobid), she received a PICC line and will be on Ertapenem IV for 10 more days (total of 2 weeks of treatment). The patient NEEDS to followup with a Urologist for a cystoscopy to determine why she is having recurrent UTIs. Dr. Linda gave a phone number of a female Urologist at [facility] ( Dr. Kathy Frost) who the patient will follow with. For all other chronic medical problems, we continued her home medications The patient was made aware of the hospital course and agrees with the plan to be discharged with a PICC line Minutes to complete discharge: 55 Discharge Summary Reason For Visit: PYELONEHPRITIS Current Active Problems Pyelonephritis (Acute) Condition: Improved - Instructions Diet, Activity, Other Instructions: RECOMMENDATIONS: - Do not wear overly tight underwear or pants - Gently cleanse your genital area each day. Wipe from front to back to keep germs from going in your body - Always empty your bladder after sex - Empty your bladder before you go to sleep - If you have signs of infection: fever, chills, pain with urination, back pain, nausea, vomiting, please come to the ER NEW MEDICATIONS: - IV Ertapenem through PICC line for total of 2 weeks (LAST DAY 2016) FOLLOWUPS: - Dr. Pradeep Overton - Primary Care Provider - Please followup in 1 week - Dr. Kathy Frost - Female Urologist at [facility] - ([phone]) - Please call her to make an appointment within 2 weeks Referrals: STAFF,NOT ON [Non Staff, Medical] - 1 Week (Kathy Frost [phone]) Pradeep Overton MD [Primary Care Provider] - 1 Week Disposition: HOME - Home Medications Comprehensive Discharge Medication List: Ambulatory Orders Amlodipine Besylate [Norvasc -] 5 mg PO DAILY 04/07/16 Furosemide [Lasix -] 20 mg PO DAILY 04/07/16 Apixaban [Eliquis] 5 mg PO BID 09/07/16 Docusate Sodium [Colace -] 100 mg PO DAILY #20 capsule 09/12/16 Ertapenem Sodium - 1 Gram [Invanz (Pre-Docked)] 1 gm IVPB DAILY #10 bag This patient is new to me today: No Emergency Visit: No Critical Care patient: No - Discharge Referral Referred to [facility] No
[2016-12-15] MEDS: DOCUSATE SODIUM 100 MG CAPSULE (FP) PO SCH (14:50)
[2016-12-15 14:58] VITALS: BP 122/76; PULSE 62; TEMP 98
--- NOTE | 2016-12-15 16:12 | PN ---
Teaching Attending Note Name of Resident: Cris Guillen ATTENDING PHYSICIAN STATEMENT I saw and evaluated the patient. I reviewed the resident's note and discussed the case with the resident. I agree with the resident's findings and plan as documented. SUBJECTIVE: Patient has no complaints. OBJECTIVE: Vital Signs Period Temp Pulse Resp BP Sys/Acosta Pulse Ox Last 24 Hr 98.0 F-98.8 F 60-76 18-20 106-140/61-76 100 HEART: S1S2, RRR LUNGS: Clear ABDOMEN: Soft, non-tender, non-distended, normal BS EXTREMITIES: No edema ASSESSMENT AND PLAN: This is a 46 year old woman with a history of MDR UTI, HTN who presented to the ER complaining of fever, body aches, vomiting, suprapubic pain. 1. Sepsis secondary to acute pyelonephritis with ESBL E. coli - Afebrile x >24 hrs - Continue Invanz - PICC inserted and ok for discharge on Invanz x 10 more days - Blood cultures negative 2. Atypical chest pain - Likely musculoskeletal - Resolved 3. History of DVT - Continue Eliquis 4. HTN - Continue Norvasc, Lasix
== END 2016-12-15 18:19 | disposition home or self-care (01) | DRG 872 ==
LOC: JER 16:25 → SUPCPDRO 16:25 → JERBED 22:43 → UNDOADMIN 23:58 → J6S 12-13 07:33
PROVIDERS: ADMIT Internal Medicine; ATTEND Internal Medicine
PROC: 02HV33Z Insertion of Infusion Device into Superior Vena Cava, Percutaneous Approach (ICD-10-PCS; principal; 2016-12-15)
PROC: B548ZZA Ultrasonography of Superior Vena Cava, Guidance (ICD-10-PCS; 2016-12-15)
DX: A41.9 Sepsis, unspecified organism (principal); N10 Acute pyelonephritis; B96.20 Unspecified Escherichia coli [E. coli] as the cause of diseases classified elsewhere; K29.60 Other gastritis without bleeding; G47.30 Sleep apnea, unspecified; Z86.718 Personal history of other venous thrombosis and embolism; R07.89 Other chest pain; K59.00 Constipation, unspecified; L27.0 Generalized skin eruption due to drugs and medicaments taken internally; T37.8X5A Adverse effect of other specified systemic anti-infectives and antiparasitics, initial encounter; Z88.0 Allergy status to penicillin
CPT/HCPCS: 36415; 36569; 76775-TC; 76856-TC; 77001-TC; 80048; 80053; 81003; 81015; 83605; 83735; 84484; 84703; 85025; 85027; 87040; 87086; 87186; 93005; 93010; 99285-25; C1751

== ENCOUNTER 2017-05-31 15:31 | Emergency (ER) | payer OTHER ==
[2017-05-31 15:38] VITALS: BP 143/102; PULSE 67; TEMP 97.8; BMI 26.6
--- NOTE | 2017-05-31 15:42 | PDOC ---
Rapid Medical Evaluation Time Seen by Provider: 05/31/17 15:35 Medical Evaluation: Allergies Allergy/AdvReac Type Severity Reaction Status Date / Time nitrofurantoin Allergy Mild Rash Verified 12/15/16 13:40 [From Macrobid] Penicillins Allergy Mild Hives Verified 12/12/16 16:33 05/31/17 15:36 Pt c/o: fever, runny nose, headache, cough, body aches x 3 days. Pt on exam: vss, lcta Pt ordered for5 : influenza swab pt to proceed to the ED Discharge Disposition - Diagnosis Fever - Referrals - Patient Instructions - Post Discharge Activity
--- NOTE | 2017-05-31 17:15 | PDOC ---
History of Present Illness - General Chief Complaint: Respiratory Stated Complaint: FLU LIKE SYMPTOMS Time Seen by Provider: 05/31/17 15:35 History Source: Patient Exam Limitations: No Limitations - History of Present Illness Initial Comments: CHIEF COMPLAINT: 46 y/o female with 3 days of flu like symptoms. HISTORY OF PRESENT ILLNESS: Pt admits to fever highest 103, cough, runny nose, nasal congestion, body aches, sore throat. She states her daughter had similar symptoms before she did. She did not have the flu shot this year. She has been treating with various OTC meds including theraflu, etc. Vital signs within normal limits. Past History - Past Medical History Allergies/Adverse Reactions: Allergies Allergy/AdvReac Type Severity Reaction Status Date / Time nitrofurantoin Allergy Mild Rash Verified 05/31/17 15:39 [From Macrobid] Penicillins Allergy Mild Hives Verified 05/31/17 15:39 Home Medications: Ambulatory Orders Amlodipine Besylate [Norvasc -] 5 mg PO DAILY 04/07/16 Furosemide [Lasix -] 20 mg PO DAILY 04/07/16 Apixaban [Eliquis] 5 mg PO BID 09/07/16 Docusate Sodium [Colace -] 100 mg PO DAILY #20 capsule 09/12/16 Ertapenem Sodium - 1 Gram [Invanz (Pre-Docked)] 1 gm IVPB DAILY #10 bag Anemia: No Asthma: No Cancer: No Cardiac Disorders: No CVA: No COPD: No CHF: No Dementia: No Diabetes: No GI Disorders: Yes (gastritis) Disorders: No HTN: Yes Hypercholesterolemia: No Liver Disease: No Seizures: No Thyroid Disease: No - Surgical History Abdominal Surgery: Yes (liposuction, gastric bypass) Appendectomy: No Cardiac Surgery: No Cholecystectomy: No Lung Surgery: No Neurologic Surgery: No Orthopedic Surgery: No - Immunization History Immunization Up to Date: Yes - Suicide/Smoking/Psychosocial Hx Smoking History: Never smoked Have you smoked in the past 12 months: No Hx Alcohol Use: No Drug/Substance Use Hx: No Substance Use Type: None Review of Systems - Review of Systems Able to Perform ROS?: Yes Constitutional: Yes: Chills, Fever. No: Night Sweats, Weakness HEENTM: Yes: Nose Congestion, Throat Pain. No: Eye Pain, Ear Pain, Ear Discharge, Nose Pain, Throat Swelling, Difficulty Swallowing Respiratory: Yes: Cough. No: Shortness of Breath, Wheezing, Productive cough Cardiac (ROS): No: Symptoms Reported ABD/GI: No: Symptoms Reported Musculoskeletal: Yes: Other (body aches) *Physical Exam - Vital Signs Last Vital Signs Temp Pulse Resp BP Pulse Ox 97.8 F 67 18 143/102 100 05/31/17 15:36 05/31/17 15:36 05/31/17 15:36 05/31/17 15:36 05/31/17 15:36 - Physical Exam Comments: THe patient is an ambulatory female, non toxic but ill appearing General Appearance: Yes: Nourished, Appropriately Dressed. No: Apparent Distress HEENT: positive: EOMI, DEMAR, Normal Voice, Pharyngeal Erythema, Nasal Congestion , TM Erythema, Other (Uvula midline. No soft/hard palate deformities. No trismus). negative: Tonsillar Exudate, Tonsillar Erythema, Rhinorrhea, Sinus Tenderness, TM Bulging Neck: negative: Lymphadenopathy (R), Lymphadenopathy (L) Respiratory/Chest: positive: Lungs Clear. negative: Crackles, Rales, Rhonchi, Wheezing Cardiovascular: positive: Regular Rhythm, Regular Rate Medical Decision Making - Medical Decision Making A/P: 46 y/o afebrile female with 3 days of flu like symptoms. Will diagnose clinically with the flu. Outside the tamiflu window. Instructed her to alternate between tylenol and motrin every 3 hours, drink plenty of fluids, get lots of rest and return to the ER with any worsening or concerning symptoms. The patient verbalizes understanding of all instructions, has no further questions and is awaiting discharge. *DC/Admit/Observation/Transfer Diagnosis at time of Disposition: Influenza - Discharge Dispostion Disposition: HOME Condition at time of disposition: Good - Referrals Referrals: Pradeep Overton MD [Primary Care Provider] - - Patient Instructions Printed Discharge Instructions: DI for Influenza -- Adult Additional Instructions: Discharge Instructions: -You have the flu -Alternate between 650mg of tylenol and 600mg of motrin every 6 hours for fever/ body aches -Drink lots of fluids -Get plenty of rest -REturn to the ER with any worsening or concerning symptoms. - Post Discharge Activity
== END 2017-05-31 17:23 | disposition home or self-care (01) ==
LOC: JERFT 15:31
DX: J10.1 Influenza due to other identified influenza virus with other respiratory manifestations (principal)
CPT/HCPCS: 87804; 99281-25

== ENCOUNTER 2017-09-27 15:21 | Emergency (ER) | payer OTHER ==
[2017-09-27 15:37] VITALS: TEMP 98; BMI 27.8
--- NOTE | 2017-09-27 15:49 | PDOC ---
Rapid Medical Evaluation Chief Complaint: Headache Time Seen by Provider: 09/27/17 15:36 Medical Evaluation: Allergies Allergy/AdvReac Type Severity Reaction Status Date / Time nitrofurantoin Allergy Mild Rash Verified 09/27/17 15:31 [From Macrobid] Penicillins Allergy Mild Hives Verified 09/27/17 15:31 Vital Signs Temp Pulse Resp BP Pulse Ox 98 F 68 18 146/88 100 09/27/17 15:31 09/27/17 15:31 09/27/17 15:31 09/27/17 15:31 09/27/17 15:31 09/27/17 15:46 Pt c/o: head ache x2 weeks with dizziness x 2 weeks. fell 2 weeks ago and left side. no visual changes. Pt also states pain with urination and low back pain Pt on brief exam: vs, perrl, No abd pain, no cva tenderness Pt ordered for : head ct, ua, upreg, ucx Pt to proceed to the ED Discharge Disposition - Diagnosis UTI (urinary tract infection), Otitis media, Fall, Closed head injury - Discharge Dispostion Disposition: HOME Condition at time of disposition: Stable - Prescriptions Prescriptions: Cefpodoxime Proxetil [Vantin -] 200 mg PO Q12H #20 tablet - Referrals Referrals: Varun Scott MD [Staff Physician] - Anibal Reis MD [Staff Physician] - - Patient Instructions Printed Discharge Instructions: Middle Ear Infection, DI for Urinary Tract Infection (UTI), DI for Closed Head Injury Additional Instructions: Please take all medications as prescribed. Please take tylenol or motrin for the pain fever. Please finish all antibiotics. Please follow up with your PMD. Please return to the ED with any further concerns. - Post Discharge Activity
--- NOTE | 2017-09-27 16:00 | PDOC ---
History of Present Illness - General History Source: Patient Exam Limitations: No Limitations - History of Present Illness Initial Comments: 09/27/17 16:43 The patient is a 47 year old female with a significant PMH of hypertension, gastritis, anemia, DVT, and recurrent UTI who presents to the emergency department with pain s/p fall 2 weeks ago. The patient reports that she fell down the stairs and hit her head 2 weeks ago. The patient reports that she has been experiencing associated left sided headache,neck pain, back pain and blurry vision since then. The patient reports that she is also experiencing numbness in her left arm and leg. The patient denies any loc. She states that her pain has worsened since her fall. She reports taking 2 tylenols 4 hours prior to arrival to the ED. The patient also reports suprapubic belly pain with associated pressure with urination. She states that her last menstrual was 1 week ago. The patient reports a runny nose and fever but denies any sick contact. The patient reports consulting with her doctor by which he told her to come to the ED. The patient denies any other symptoms. She denies any chills, nausea, vomit, diarrhea, constipation or other urinary symptoms. She denies any chest pain, shortness of breath,or dizziness. The patient denies any other complaints. <Sameer Cristobal - Last Filed: 09/27/17 16:43> <Yary Jernigan - Last Filed: 09/27/17 19:59> - General Chief Complaint: Headache Stated Complaint: HEADACHES, FEVER Time Seen by Provider: 09/27/17 15:36 Past History <Sameer Cristobal - Last Filed: 09/27/17 16:43> - Past Medical History Anemia: No Asthma: No Cancer: No Cardiac Disorders: No CVA: No COPD: No CHF: No Dementia: No Diabetes: No GI Disorders: Yes (gastritis) Disorders: No HTN: Yes Hypercholesterolemia: No Liver Disease: No Seizures: No Thyroid Disease: No - Surgical History Abdominal Surgery: Yes (liposuction, gastric bypass) Appendectomy: No Cardiac Surgery: No Cholecystectomy: No Lung Surgery: No Neurologic Surgery: No Orthopedic Surgery: No - Immunization History Immunization Up to Date: Yes - Suicide/Smoking/Psychosocial Hx Smoking History: Never smoked Have you smoked in the past 12 months: No Information on smoking cessation initiated: No Hx Alcohol Use: No Drug/Substance Use Hx: No Substance Use Type: None Hx Substance Use Treatment: No <Yary Jernigan - Last Filed: 09/27/17 19:59> - Past Medical History Allergies/Adverse Reactions: Allergies Allergy/AdvReac Type Severity Reaction Status Date / Time nitrofurantoin Allergy Mild Rash Verified 09/27/17 15:31 [From Macrobid] Penicillins Allergy Mild Hives Verified 09/27/17 15:31 Home Medications: Ambulatory Orders Amlodipine Besylate [Norvasc -] 5 mg PO DAILY 04/07/16 Cephalexin Monohydrate [Keflex -] 500 mg PO BID #8 capsule 06/30/17 Cefpodoxime Proxetil [Vantin -] 200 mg PO Q12H #20 tablet 09/27/17 Review of Systems - Review of Systems Able to Perform ROS?: Yes Comments:: 09/27/17 16:44 GENERAL/CONSTITUTIONAL: (+)fever No chills. No weakness. HEAD, EYES, EARS, NOSE AND THROAT:(+)blurry vision. No ear pain or discharge. No sore throat. CARDIOVASCULAR: No chest pain or shortness of breath. RESPIRATORY: No cough, wheezing, or hemoptysis. GASTROINTESTINAL: No nausea, vomiting, diarrhea or constipation. GENITOURINARY: (+)Pressure with urination. No dysuria, frequency, or change in urination. MUSCULOSKELETAL: (+)neck pain, back pain. No joint or muscle swelling or pain. SKIN: No rash NEUROLOGIC: (+) headache. No vertigo, loss of consciousness, or change in strength/sensation. ENDOCRINE: No increased thirst. No abnormal weight change. HEMATOLOGIC/LYMPHATIC: No anemia, easy bleeding, or history of blood clots. ALLERGIC/IMMUNOLOGIC: No hives or skin allergy. <Sameer Cristobal - Last Filed: 09/27/17 16:43> *Physical Exam - Vital Signs Last Vital Signs Temp Pulse Resp BP Pulse Ox 98 F 68 18 146/88 100 09/27/17 15:31 09/27/17 15:31 09/27/17 15:31 09/27/17 15:31 09/27/17 15:31 - Physical Exam Comments: 09/27/17 16:44 GENERAL: Awake, alert, and fully oriented, in no acute distress HEAD: No signs of trauma EYES: PERRLA, EOMI, sclera anicteric, conjunctiva clear ENT: (+)red eardrum, fluid behind left ear, mild post nasal drip. No exudates. oropharynx clear .Moist mucosa NECK: Normal ROM, supple, no lymphadenopathy, JVD, or masses LUNGS: (+)right CVA tenderness. Breath sounds equal, clear to auscultation bilaterally. No wheezes, and no crackles HEART: Regular rate and rhythm, normal S1 and S2, no murmurs, rubs or gallops ABDOMEN: Soft, nontender, normoactive bowel sounds. No guarding, no rebound. No masses EXTREMITIES: Normal range of motion, no edema. No clubbing or cyanosis. No cords, erythema, or tenderness NEUROLOGICAL: (+)paraspinal tenderness. No CTL step off or deformity. Cranial nerves II through XII grossly intact. Normal speech, normal gait SKIN: Warm, Dry, normal turgor, no rashes or lesions noted. <Sameer Cristobal - Last Filed: 09/27/17 16:43> - Vital Signs Last Vital Signs Temp Pulse Resp BP Pulse Ox 98 F 68 18 146/88 100 09/27/17 15:31 09/27/17 15:31 09/27/17 15:31 09/27/17 15:31 09/27/17 15:31 <Yary Jernigan - Last Filed: 09/27/17 19:59> ED Treatment Course - LABORATORY CBC & Chemistry Diagram: 09/27/17 16:13 09/27/17 19:10 <Yary Jernigan - Last Filed: 09/27/17 19:59> Medical Decision Making - Medical Decision Making 09/27/17 16:11 a/p:47yo female with fall down the stairs without LOC on weekend -wynn since -L lateral neck pain - no midline ttp, no step-offs or deformities -L sided wynn -pressure with urination and R cva ttp - concerning for uti vs pyelo -fever x 4 days -L ear otitis media -will obtain labs, ua, ucg, head and c spine ct -low suspicion though for intracranial injury - suspect post concussive syndrome 09/27/17 19:55 discussed all labs and imaging uti on labs head and c spine ct are negative feeling better eating PO will start abx - rx sent to pharmacy will d/c to home discussed all reasons to return to the ED and need for follow up. <Yary Jernigan - Last Filed: 09/27/17 19:59> *DC/Admit/Observation/Transfer - Attestations Scribe Attestion: 09/27/17 16:44 Documentation prepared by Sameer Cristobal, acting as emergency medical technician/driver for Yary Jernigan MD <Sameer Cristobal - Last Filed: 09/27/17 16:43> - Discharge Dispostion Decision to Admit order: No - Attestations Physician Attestion: 09/27/17 19:55 I, Dr. Yary Jernigan, DO, attest that this document has been prepared under my direction and personally reviewed by me in its entirety. I further attest, that it accurately reflects all work, treatment, procedures and medical decision -making performed by me. <Yary Jernigan - Last Filed: 09/27/17 19:59> Diagnosis at time of Disposition: UTI (urinary tract infection), Otitis media, Fall, Closed head injury - Discharge Dispostion Disposition: HOME Condition at time of disposition: Stable - Prescriptions Prescriptions: Cefpodoxime Proxetil [Vantin -] 200 mg PO Q12H #20 tablet - Referrals Referrals: Varun Scott MD [Staff Physician] - Anibal Reis MD [Staff Physician] - - Patient Instructions Printed Discharge Instructions: DI for Closed Head Injury, DI for Urinary Tract Infection (UTI), Middle Ear Infection Additional Instructions: Please take all medications as prescribed. Please take tylenol or motrin for the pain fever. Please finish all antibiotics. Please follow up with your PMD. Please return to the ED with any further concerns.
[2017-09-27] MEDS ORDERED: ACETAMINOPHEN 325 MG TABLET (FP) PO ONE (16:11)
[2017-09-27] MEDS ORDERED: SODIUM CHLORIDE 0.9% 1000 ML INFUS.BAG IV ONE (16:14)
[2017-09-27] MEDS ORDERED: METOCLOPRAMIDE HCL INJECTION 10 MG/2 ML VIAL IVPUSH ONE (16:14)
[2017-09-27] MEDS ORDERED: ACETAMINOPHEN 1000 MG/100 ML VIAL (NON FORMULARY) IVPB ONE (16:14)
[2017-09-27] MEDS ORDERED: METOCLOPRAMIDE HCL INJECTION 10 MG/2 ML VIAL ONE (16:50)
[2017-09-27] MEDS ORDERED: ACETAMINOPHEN INJECTION 100 ML IVPB ONE (16:50)
[2017-09-27 17:31] LABS: BASO % 0.9 % (0-2.0); EOS % 3.6 % (0-4.5); HEMATOCRIT 36.6 % (32.4-45.2); HEMOGLOBIN 11.9 GM/dL (10.7-15.3); LYMPH % 24.3 % (8-40); MCH 26.8 pg (25.7-33.7); MCHC 32.5 g/dl (32.0-36.0); MEAN CELL VOLUME 82.6 fl (80-96); MEAN PLT VOLUME 8.7 fl (7.5-11.1); MONO % 8.3 % (3.8-10.2); NEUT % 62.9 % (42.8-82.8); PLATELET COUNT 272 K/MM3 (134-434); RBC 4.44 M/mm3 (3.60-5.2); RDW 14.9 % (11.6-15.6); WHITE BLOOD COUNT 4.5 K/mm3 (4.0-10.0)
[2017-09-27 18:16] LABS: URINE APPEARANCE SLCLOUDY; URINE BILIRUBIN NEGATIVE (<2.0 mg/dL); URINE BLOOD 1+ (NEGATIVE); URINE COLOR YELLOW; URINE GLUCOSE (UA) NEGATIVE (NEGATIVE); URINE KETONE NEGATIVE (NEGATIVE); URINE LEUK ESTERASE NEGATIVE (NEGATIVE); URINE NITRITE POSITIVE (NEGATIVE); URINE PROTEIN NEGATIVE (NEGATIVE)
[2017-09-27 18:28] LABS: EPI CELLS RARE /HPF (FEW); URINE BACTERIA MANY /hpf (NONE SEEN); URINE MUCUS RARE
[2017-09-27 18:43] LABS: HCG,QUALITATIVE URINE NEGATIVE
[2017-09-27 19:41] LABS: ALBUMIN 3.3 g/dl (3.4-5.0); ALK PHOS 73 U/L (45-117); ANION GAP 4 (8-16); BILIRUBIN,TOTAL 0.4 mg/dL (0.2-1.0); BLOOD UREA NITROGEN 15 mg/dL (7-18); CHLORIDE 107 mmol/L (98-107); CO2 29 mmol/L (21-32); CREATININE 1.2 mg/dL (0.55-1.02); GLUCOSE,RANDOM 109 mg/dL (74-106); SGOT/AST 22 U/L (15-37); SGPT/ALT 21 U/L (12-78); SODIUM 140 mmol/L (136-145); TOT PROT 6.6 g/dl (6.4-8.2)
[2017-09-27] MEDS ORDERED: CEFPODOXIME PROXETIL 100 MG TABLET PO ONE (21:15)
[2017-09-27 22:09] VITALS: BP 132/74; PULSE 74
--- NOTE | 2017-09-30 07:23 | PDOC ---
Patient Follow-up (Call Back) - Post ED Follow - Up Condition at time of discharge: Stable Disposition at time of original discharge: HOME Reason for Call Back: Abnwl. Microbiology (Patient urine culture preliminary shows non-lactose fermenting GNB. Patient currently on Keflex. Will await final report.)
== END 2017-09-27 21:45 | disposition home or self-care (01) ==
LOC: JER 15:21
PROC: 3E033NZ Introduction of Analgesics, Hypnotics, Sedatives into Peripheral Vein, Percutaneous Approach (ICD-10-PCS; principal; 2017-09-27)
PROC: 3E033GC Introduction of Other Therapeutic Substance into Peripheral Vein, Percutaneous Approach (ICD-10-PCS; 2017-09-27)
DX: S09.8XXA Other specified injuries of head, initial encounter (principal); W10.8XXA Fall (on) (from) other stairs and steps, initial encounter; Y93.89 Activity, other specified; Y92.89 Other specified places as the place of occurrence of the external cause; Y99.8 Other external cause status; N39.0 Urinary tract infection, site not specified; H66.92 Otitis media, unspecified, left ear; R50.9 Fever, unspecified
CPT/HCPCS: 36415; 70450-TC; 72125-TC; 80053; 81003; 81015; 84703; 85025; 87086; 87186; 99283-25; J0131; J7030

== ENCOUNTER 2018-04-28 21:08 | Emergency (ER) | payer OTHER ==
[2018-04-28 21:22] VITALS: BP 159/92; PULSE 70; TEMP 98.8; BMI 26.6
--- NOTE | 2018-04-28 21:42 | PDOC ---
History of Present Illness <Sommer De Dios - Last Filed: 04/29/18 01:35> - General History Source: Patient Exam Limitations: No Limitations - History of Present Illness Initial Comments: 04/28/18 21:39 Patient is a 47-year-old female with past medical history of HTN, gastritis, DVT , 3, gastric bypass 2003 with revision in 2004, cholecystectomy, liposuction, Kevin filter, left leg surgery, complaining of epigastric pain 3 days. States that the pain is sharp, stabbing,10/10, radiates to the back. Symptoms are associated with nausea and vomiting, last time vomited was just prior to presentation. States she took Zantac with no relief of symptoms. States history of constipation but only had a small bowel movement yesterday. Patient states that today while in the kitchen she developed a crampy pain in her left arm which moved up the arm and into the left chest. This pain lasted for a few seconds and then went away, however, the pain returned later so she was concerned and came to the ER for evaluation. PMD: Dr. Pradeep Overton PMHX: as above PSOCHX: neg etoh, cig,drug ALL: PCN GENERAL/CONSTITUTIONAL: [No fever or chills. No weakness. No weight change.] HEAD, EYES, EARS, NOSE AND THROAT: [No change in vision. No ear pain or discharge. No sore throat.] CARDIOVASCULAR: [No chest pain or shortness of breath.] RESPIRATORY: [No cough, wheezing, or hemoptysis.] GASTROINTESTINAL:(+) nausea, vomiting, (-) diarrhea (+) constipation. No rectal bleeding.] GENITOURINARY: [No dysuria, frequency, or change in urination.] MUSCULOSKELETAL: [No joint or muscle swelling or pain. No neck or back pain.] SKIN AND BREASTS: [No rash or easy bruising.] NEUROLOGIC: [No headache, vertigo, loss of consciousness, or loss of sensation.] PSYCHIATRIC: [No depression or anxiety.] ENDOCRINE: [No increased thirst. No abnormal weight change.] HEMATOLOGIC/LYMPHATIC: [No anemia, easy bleeding, or history of blood clots.] ALLERGIC/IMMUNOLOGIC: [No hives or skin allergy. No latex allergy.] GENERAL: [The patient is awake, alert, and fully oriented, in moderate painful distress.] HEAD: [Normal with no signs of trauma.] EYES: [Pupils equal, round and reactive to light, extraocular movements intact, sclera anicteric, conjunctiva clear.] ENT: [Ears normal, nares patent, oropharynx clear without exudates. Moist mucous membranes.] NECK: [Normal range of motion, supple without lymphadenopathy, JVD, or masses.] LUNGS: [Breath sounds equal, clear to auscultation bilaterally. No wheezes, and no crackles.] HEART: [Regular rate and rhythm, normal S1 and S2 without murmur, rub.] ABDOMEN: [Soft, (+) tenderness in the epigastrum, normoactive bowel sounds. No guarding, no rebound. No masses.] EXTREMITIES: [Normal range of motion, no edema. No clubbing or cyanosis. No cords, erythema, or tenderness.] NEUROLOGICAL: [Cranial nerves II through XII grossly intact. Normal speech, normal gait.] PSYCH: [Normal mood, normal affect.] SKIN: [Warm, Dry, normal turgor, no rashes or lesions noted.] <Joey Wagner - Last Filed: 04/29/18 02:23> - General Stated Complaint: ABDOMINAL PAIN, CHEST PAIN, VOMITING Time Seen by Provider: 04/28/18 21:28 Past History <Sommer De Dios - Last Filed: 04/29/18 01:35> - Past Medical History Anemia: No Asthma: No Cancer: No Cardiac Disorders: No CVA: No COPD: No CHF: No Dementia: No Diabetes: No GI Disorders: Yes (gastritis) Disorders: No HTN: Yes Hypercholesterolemia: No Liver Disease: No Seizures: No Thyroid Disease: No - Surgical History Abdominal Surgery: Yes (liposuction, gastric bypass) Appendectomy: No Cardiac Surgery: No Cholecystectomy: No Lung Surgery: No Neurologic Surgery: No Orthopedic Surgery: No - Immunization History Immunization Up to Date: Yes - Suicide/Smoking/Psychosocial Hx Smoking History: Never smoked Have you smoked in the past 12 months: No Information on smoking cessation initiated: No Hx Alcohol Use: No Drug/Substance Use Hx: No Substance Use Type: None Hx Substance Use Treatment: No <Joey Wagner - Last Filed: 04/29/18 02:23> - Past Medical History Allergies/Adverse Reactions: Allergies Allergy/AdvReac Type Severity Reaction Status Date / Time nitrofurantoin Allergy Mild Rash Verified 04/28/18 21:22 [From Macrobid] Penicillins Allergy Mild Hives Verified 04/28/18 21:22 Home Medications: Ambulatory Orders Amlodipine Besylate [Norvasc -] 5 mg PO DAILY 04/07/16 Cephalexin Monohydrate [Keflex -] 500 mg PO BID #8 capsule 06/30/17 Cefpodoxime Proxetil [Vantin -] 200 mg PO Q12H #20 tablet 09/27/17 Omeprazole 20 mg PO DAILY #30 tab.santa. 04/29/18 Ondansetron HCl [Zofran] 4 mg PO QID #14 tablet 04/29/18 Sucralfate Oral Suspension [Carafate *Oral Susp*] 1 gm PO QID 7 Days #28 gm 11/08 *Physical Exam - Vital Signs Last Vital Signs Temp Pulse Resp BP Pulse Ox 98.8 F 70 16 159/92 100 04/28/18 21:09 04/28/18 21:09 04/28/18 21:09 04/28/18 21:09 04/28/18 21:09 <Sommer De Dios - Last Filed: 04/29/18 01:35> - Vital Signs Last Vital Signs Temp Pulse Resp BP Pulse Ox 98.8 F 70 16 159/92 100 04/28/18 21:09 04/28/18 21:09 04/28/18 21:09 04/28/18 21:09 04/28/18 21:09 <Joey Wagner - Last Filed: 04/29/18 02:23> Moderate Sedation - Procedure Monitoring Vital Signs: Procedure Monitoring Vital Signs Temperature 98.8 F 04/28/18 21:09 Pulse Rate 70 04/28/18 21:09 Respiratory Rate 16 04/28/18 21:09 Blood Pressure 159/92 04/28/18 21:09 O2 Sat by Pulse Oximetry (%) 100 04/28/18 21:09 <Sommer De Dios - Last Filed: 04/29/18 01:35> - Procedure Monitoring Vital Signs: Procedure Monitoring Vital Signs Temperature 98.8 F 04/28/18 21:09 Pulse Rate 70 04/28/18 21:09 Respiratory Rate 16 04/28/18 21:09 Blood Pressure 159/92 04/28/18 21:09 O2 Sat by Pulse Oximetry (%) 100 04/28/18 21:09 <Joey Wagner - Last Filed: 04/29/18 02:23> ED Treatment Course - LABORATORY CBC & Chemistry Diagram: 04/28/18 22:00 04/28/18 22:00 - ADDITIONAL ORDERS Additional order review: Laboratory Results 04/28/18 04/28/18 04/28/18 22:00 22:00 22:00 Sodium 137 Potassium 3.8 Chloride 104 Carbon Dioxide 26 Anion Gap 6 L BUN 12 Creatinine 1.7 H Creat Clearance w eGFR 32.50 Random Glucose 93 Calcium 8.5 Total Bilirubin 0.2 AST 20 ALT 19 Alkaline Phosphatase 88 Creatine Kinase 277 H Creatine Kinase Index 0.3 CK-MB (CK-2) < 1.0 Troponin I < 0.02 Total Protein 8.1 Albumin 3.9 Total Amylase 73 Lipase 263 04/28/18 22:00 RBC 4.73 MCV 83.8 MCHC 34.5 RDW 15.3 MPV 8.2 Neutrophils % 60.1 Lymphocytes % 25.5 Monocytes % 8.2 Eosinophils % 5.0 H Basophils % 1.2 - Medications Given in the ED: ED Medications Discontinued Medications Generic Name Dose Route Start Last Admin Trade Name Nixon PRN Reason Stop Dose Admin Acetaminophen 1,000 mg 04/28/18 21:51 04/28/18 22:26 Ofirmev Injection - IVPB 04/28/18 21:52 Not Given ONCE ONE Acetaminophen 1,000 mg 04/29/18 00:10 04/29/18 00:48 Ofirmev Injection - IVPB 04/29/18 00:11 1,000 mg ONCE ONE Administration Famotidine/Sodium Chloride 20 mg in 50 mls @ 100 mls/hr 04/28/18 21:51 22:25 Pepcid 20 Mg Premixed Ivpb - IVPB 04/28/18 22:20 100 mls/hr ONCE ONE Administration Morphine Sulfate 4 mg 04/28/18 21:58 04/28/18 22:25 Morphine Injection - IVPUSH 04/28/18 21:59 4 mg ONCE ONE Administration Ondansetron HCl 4 mg 04/28/18 21:55 04/28/18 22:25 Zofran Injection IVPUSH 04/28/18 21:56 4 mg ONCE ONE Administration Sodium Chloride 1,000 ml 04/28/18 21:51 04/28/18 22:25 Normal Saline - IV 04/28/18 21:52 1,000 ml ONCE ONE Administration <Kristie De Diosreen - Last Filed: 04/29/18 01:35> - LABORATORY CBC & Chemistry Diagram: 04/28/18 22:00 04/28/18 22:00 <Joey Wagner - Last Filed: 04/29/18 02:23> Medical Decision Making - Medical Decision Making 04/29/18 01:35 Patient Name: LAW DOBBS THIS IS A PRELIMINARY REPORT FROM [facility] DATE OF SERVICE: 2018-04-29 01:06:46 IMAGES: [id number] EXAM: CT ABDOMEN \T\ PELVIS CT W/O CONTR HISTORY: Abdominal pain COMPARISON: None. FINDINGS: Abdomen Liver: Normal Spleen: Normal Pancreas: Normal Gallbladder: Surgically absent Stomach: There is been a gastric bypass Small bowel: Normal Large bowel: Normal Appendix: Normal Adrenals:Normal Kidneys: Normal Vascular: There is an inferior vena cava filter Lymphatic: Normal Peritoneal: No free peritoneal air or fluid Pelvis: Uterus: normal Referring Physician: Rectum: Normal Bladder: Normal The inferior thorax: Normal General: Skeletal: Normal Abdominal wall: Normal IMPRESSION: No acute findings <De DiosSommer - Last Filed: 04/29/18 01:35> - Medical Decision Making 04/28/18 21:39 Patient is a 47-year-old female with past medical history of HTN, gastritis, DVT , 3, gastric bypass 2003 with revision in 2004, cholecystectomy, liposuction, Brea filter, left leg surgery, complaining of epigastric pain 3 days. Patient to set high risk for bowel obstruction, will rule out pancreatitis, gastritis, bowel obstruction, occasions secondary to gastric bypass. Labs, pain meds, antinausea, CT abdomen and pelvis. 2. Chest pain, not likely to be ACS, patient has a filter not likely to be PE Will get EKG, troponin, test x-ray. Obstructive series x-ray no acute obstruction of stool in the colon. Labs reviewed noted that patient had increase in creatinine will to new hydration. Patient still complains of pain will get CT of the abdomen noncontrast Patient given morphine 4 mg IV for pain however her pain continued given 1 g of Tylenol IV. 04/29/18 01:47 Patient has good pain control currently but is requesting something for pain for home. No acute findings on CT scan. Given GI cocktail, carafate 1 zofia I discussed the physical exam findings, ancillary test results and final diagnoses with the patient. I answered all of the patient's questions. The patient was satisfied with the care received and felt comfortable with the discharge plan and treatment plan. The Patient agrees to follow up with the primary care physician within 24-72 hours. <Joey Wagner - Last Filed: 04/29/18 02:23> *DC/Admit/Observation/Transfer <LanreSommer - Last Filed: 04/29/18 01:35> <GraciaWilliam Berg - Last Filed: 04/29/18 02:23> Diagnosis at time of Disposition: Gastritis Qualifiers: Gastritis type: unspecified gastritis Chronicity: unspecified Gastritis bleeding: without bleeding Qualified Code(s): K29.70 - Gastritis, unspecified, without bleeding Constipation Qualifiers: Constipation type: unspecified constipation type Qualified Code(s): K59.00 - Constipation, unspecified - Discharge Dispostion Disposition: HOME Condition at time of disposition: Stable - Prescriptions Prescriptions: Omeprazole 20 mg PO DAILY #30 tab.rap. Ondansetron HCl [Zofran] 4 mg PO QID #14 tablet Sucralfate Oral Suspension [Carafate *Oral Susp*] 1 gm PO QID 7 Days #28 gm - Referrals Referrals: Pradeep Overton MD [Primary Care Provider] - - Patient Instructions Printed Discharge Instructions: DI for Gastritis, DI for Constipation Additional Instructions: Your Discharge Instructions: You must call primary care physician within 24 hours to arrange follow-up. Return to the Emergency Department with any new, persistent or worsening symptoms, for fever, chills, SOB, dizziness or any other concerning changes that may occur. Follow-up with her GI doctor in one to 2 days for further treatment. - Post Discharge Activity Forms/Work/School Notes: Back to Work
[2018-04-28] MEDS ORDERED: ACETAMINOPHEN 1000 MG/100 ML VIAL (NON FORMULARY) IVPB ONE (21:51)
[2018-04-28] MEDS ORDERED: FAMOTIDINE 20 MG/50 ML IVPB 20 MG/50 ML MG IVPB ONE ×2 (21:51→22:14)
[2018-04-28] MEDS ORDERED: SODIUM CHLORIDE 0.9% 500 ML INFUS.BAG IV ONE (21:51)
[2018-04-28] MEDS ORDERED: ONDANSETRON 4 MG/2 ML VIAL IVPUSH ONE (21:55)
[2018-04-28] MEDS ORDERED: morphine CARPU-JECT 4 MG/1 ML DISP.SYRIN IVPUSH ONE (21:58)
[2018-04-28 22:12] LABS: BASO % 1.2 % (0-2.0); HEMATOCRIT 39.7 % (32.4-45.2); HEMOGLOBIN 13.7 GM/dL (10.7-15.3); LYMPH % 25.5 % (8-40); MCH 28.9 pg (25.7-33.7); MCHC 34.5 g/dl (32.0-36.0); MEAN CELL VOLUME 83.8 fl (80-96); MEAN PLT VOLUME 8.2 fl (7.5-11.1); MONO % 8.2 % (3.8-10.2); NEUT % 60.1 % (42.8-82.8); PLATELET COUNT 279 K/MM3 (134-434); RBC 4.73 M/mm3 (3.60-5.2); RDW 15.3 % (11.6-15.6); WHITE BLOOD COUNT 6.3 K/mm3 (4.0-10.0)
[2018-04-28] MEDS ORDERED: ONDANSETRON 4 MG/2 ML VIAL ONE (22:14)
[2018-04-28] MEDS ORDERED: morphine SULFATE 4 MG/ML VIAL ONE (22:14)
[2018-04-28 22:44] LABS: ALBUMIN 3.9 g/dl (3.4-5.0); ALK PHOS 88 U/L (45-117); ANION GAP 6 MMOL/L (8-16); BILIRUBIN,TOTAL 0.2 mg/dL (0.2-1); BLOOD UREA NITROGEN 12 mg/dL (7-18); CALCIUM 8.5 mg/dL (8.5-10.1); CHLORIDE 104 mmol/L (98-107); CO2 26 mmol/L (21-32); CREATININE 1.7 mg/dL (0.55-1.3); GLUCOSE,RANDOM 93 mg/dL (74-106); LIPASE 263 U/L (73-393); POTASSIUM 3.8 mmol/L (3.5-5.1); SGOT/AST 20 U/L (15-37); SGPT/ALT 19 U/L (13-61); SODIUM 137 mmol/L (136-145); TOT PROT 8.1 g/dl (6.4-8.2)
[2018-04-29] MEDS ORDERED: ACETAMINOPHEN 1000 MG/100 ML VIAL (NON FORMULARY) IVPB ONE (00:10)
[2018-04-29] MEDS ORDERED: ACETAMINOPHEN INJECTION 100 ML IVPB ONE (00:44)
[2018-04-29] MEDS ORDERED: LIDOCAINE VISCOUS 2% ORAL/TOP 20 ML UNIT-DOSE CUP MM ONE (01:55)
[2018-04-29] MEDS ORDERED: MAG HYDROX/AL HYDROX/SIMETH 30 ML UNIT-DOSE CUP PO ONE (01:55)
[2018-04-29] MEDS ORDERED: SUCRALFATE 1 GM/10 ML UNIT DOSE CUPS PO ONE (01:57)
[2018-04-29] MEDS ORDERED: LIDOCAINE VISCOUS 2% ORAL/TOP 20 ML UNIT-DOSE CUP ONE (02:09)
[2018-04-29] MEDS ORDERED: SUCRALFATE 1 GM TABLET (FP) ONE (02:09)
[2018-04-29] MEDS ORDERED: MAG HYDROX/AL HYDROX/SIMETH 30 ML UNIT-DOSE CUP ONE (02:09)
--- NOTE | 2018-04-30 14:32 | EKG ---
Test Reason : Blood Pressure : / mmHG Vent. Rate : 070 BPM Atrial Rate : 070 BPM P-R Int : 146 ms QRS Dur : 076 ms QT Int : 392 ms P-R-T Axes : 018 002 030 degrees QTc Int : 423 ms NORMAL SINUS RHYTHM NORMAL ECG WHEN COMPARED WITH ECG OF 27-JUN-2017 18:39, NO SIGNIFICANT CHANGE WAS FOUND Confirmed by Louis Khan MD ([id number]) on 04/30/2018 2:31:52 PM Referred By: Confirmed By:Louis Khan MD
== END 2018-04-29 02:25 | disposition home or self-care (01) ==
LOC: JER 21:08
PROC: 3E033NZ Introduction of Analgesics, Hypnotics, Sedatives into Peripheral Vein, Percutaneous Approach (ICD-10-PCS; principal; 2018-04-28)
PROC: 3E033GC Introduction of Other Therapeutic Substance into Peripheral Vein, Percutaneous Approach (ICD-10-PCS; 2018-04-28)
PROC: 3E0337Z Introduction of Electrolytic and Water Balance Substance into Peripheral Vein, Percutaneous Approach (ICD-10-PCS; 2018-04-28)
DX: K29.70 Gastritis, unspecified, without bleeding (principal); K59.00 Constipation, unspecified; I10 Essential (primary) hypertension; Z98.84 Bariatric surgery status; Z86.718 Personal history of other venous thrombosis and embolism
CPT/HCPCS: 36415; 71046-TC-FY; 74019-TC-FY; 74176-TC; 80053; 82150; 82550; 82553; 83690; 84484; 85025; 93005; 93010; 99283-25; J0131

== ENCOUNTER 2019-12-12 02:37 | Emergency (ER) | payer OTHER ==
[2019-12-12 02:51] VITALS: BP 146/96; PULSE 70; TEMP 98.4; BMI 26.6
--- NOTE | 2019-12-12 03:18 | PDOC ---
History of Present Illness - General Chief Complaint: Chest Pain Stated Complaint: HEADACHE, CHEST PAIN, WEAKNESS Time Seen by Provider: 12/12/19 02:58 History Source: Patient Exam Limitations: No Limitations - History of Present Illness Initial Comments: 12/12/19 03:19 49yF w PMHx hypertension and recurrent UTI presenting w 4d midsternal chest pressure, christa hand tingling, urinary urgency, christa band like headache. Didn't take any meds for symptoms. Denies fever, vomiting, cough, SOB Past History - Medical History Allergies/Adverse Reactions: Allergies Allergy/AdvReac Type Severity Reaction Status Date / Time nitrofurantoin Allergy Mild Rash Verified 12/12/19 02:45 [From Macrobid] Penicillins Allergy Mild Hives Verified 12/12/19 02:45 Home Medications: Ambulatory Orders Amlodipine Besylate [Norvasc -] 5 mg PO DAILY 04/07/16 Cephalexin Monohydrate [Keflex -] 500 mg PO BID #8 capsule 06/30/17 Cefpodoxime Proxetil [Vantin -] 200 mg PO Q12H #20 tablet 09/27/17 Omeprazole 20 mg PO DAILY #30 tab 04/29/18 Ondansetron HCl [Zofran] 4 mg PO QID #14 tablet 04/29/18 Sucralfate Oral Suspension [Carafate *Oral Susp*] 1 gm PO QID 7 Days #28 gm 04/29/18 Anemia: No Asthma: No Cancer: No Cardiac Disorders: No CVA: No COPD: No CHF: No Dementia: No Diabetes: No GI Disorders: Yes (gastritis) Disorders: No HTN: Yes Hypercholesterolemia: No Liver Disease: No Seizures: No Thyroid Disease: No - Surgical History Abdominal Surgery: Yes (liposuction, gastric bypass) Appendectomy: No Cardiac Surgery: No Cholecystectomy: No Lung Surgery: No Neurologic Surgery: No Orthopedic Surgery: No - Reproductive History Is Patient Now?: No - Immunization History Immunization Up to Date: Yes - Psycho-Social/Smoking History Smoking History: Never smoked Have you smoked in the past 12 months: No Information on smoking cessation initiated: No - Substance Abuse Hx (Audit-C & DAST Scrn) How often the patient has a drink containing alcohol: Never Score: In Men: 4 or > Positive; In Women: 3 or > Positive: 0 Screen Result (Pos requires Nsg. Audit-10AR): Negative In the last yr the pt used illegal drug/Rx for NonMed reason: No Score: Yes response is considered Positive: 0 Screen Result (Positive result requires Nsg. DAST-10): Negative Review of Systems - Review of Systems Constitutional: No: Chills, Fever HEENTM: No: Eye Pain, Recent change in vision, Nose Congestion Respiratory: No: Cough, Shortness of Breath Cardiac (ROS): Yes: Chest Pain. No: Palpitations ABD/GI: No: Constipated, Diarrhea, Nausea, Vomiting : No: Burning, Dysuria Musculoskeletal: No: Back Pain, Joint Pain Integumentary: No: Bruising, Flushing Neurological: Yes: Headache, Tingling. No: Seizure Psychiatric: No: Anxiety, Depression Endocrine: No: Intolerance to Cold, Intolerance to Heat Hematologic/Lymphatic: No: Anemia, Blood Clots *Physical Exam - Vital Signs Last Vital Signs Temp Pulse Resp BP Pulse Ox 98.4 F 70 20 146/96 100 12/12/19 02:46 12/12/19 02:46 12/12/19 02:46 12/12/19 02:46 12/12/19 02:46 - Physical Exam General Appearance: Yes: Nourished, Appropriately Dressed, Mild Distress HEENT: positive: EOMI, DEMAR, Hearing Grossly Normal. negative: Scleral Icterus (R), Scleral Icterus (L) Respiratory/Chest: positive: Chest Tender (midsternal), Lungs Clear, Normal Breath Sounds. negative: Respiratory Distress, Crackles, Rales, Rhonchi, Stridor, Wheezing Cardiovascular: positive: Regular Rhythm, Regular Rate, S1, S2. negative: Edema, Murmur Gastrointestinal/Abdominal: positive: Normal Bowel Sounds, Tender (mild RLQ), Flat, Soft, Other (neg psoas, obturator, rovsing's signs). negative: Organomegaly, Rebound Extremity: positive: Delayed Capillary Refill Integumentary: positive: Normal Color, Dry, Warm Neurologic: positive: Fully Oriented, Alert, Normal Mood/Affect, Normal Response ED Treatment Course - LABORATORY CBC & Chemistry Diagram: 12/12/19 04:05 12/12/19 04:05 Medical Decision Making - Medical Decision Making 08/21/20 04:46 EKG - NSR, HR 63, QTc 440, no ST changes CXR -clear lung mai --- 49yF w PMHx hypertension and recurrent UTI presenting w 4d midsternal chest pressure, christa hand tingling, urinary urgency, christa band like headache Anxiety vs covid. No sign of ACS (neg trop, NSR) vs (neg) vs UTI (neg) vs anemia (wnl) Given 1L NS, tylenol, zofran, reglan w symptom relief, tolerating PO fluids DC home w PCP f/u Discharge - Discharge Information Problems reviewed: Yes Clinical Impression/Diagnosis: Atypical chest pain Headache Qualifiers: Headache type: unspecified Headache chronicity pattern: acute headache Intractability: not intractable Qualified Code(s): R51 - Headache Condition: Improved Disposition: HOME - Follow up/Referral Referrals: Pradeep Overton MD [Primary Care Provider] - - Patient Discharge Instructions Patient Printed Discharge Instructions: DI for Atypical Chest Pain Additional Instructions: Your workup did not show anything concerning Drink lots of water Take tylenol or ibuprofen if you have pain Follow up with your primary care doctor - Post Discharge Activity
[2019-12-12] MEDS ORDERED: SODIUM CHLORIDE 0.9% 500 ML INFUS.BAG IV ONE (03:29)
[2019-12-12] MEDS ORDERED: ACETAMINOPHEN 1000 MG/100 ML VIAL (NON FORMULARY) IVPB ONE (03:29)
[2019-12-12] MEDS ORDERED: METOCLOPRAMIDE HCL INJECTION 10 MG/2 ML VIAL IVPB ONE (03:29)
[2019-12-12] MEDS ORDERED: ONDANSETRON 4 MG/2 ML VIAL IVPUSH ONE (03:31)
[2019-12-12] MEDS ORDERED: ACETAMINOPHEN INJECTION 100 ML IVPB ONE (03:46)
[2019-12-12] MEDS ORDERED: METOCLOPRAMIDE HCL INJECTION 10 MG/2 ML VIAL ONE (03:46)
[2019-12-12 04:39] LABS: BASO % 0.6 % (0-2.0); EOS % 3.8 % (0-4.5); HEMATOCRIT 38.2 % (32.4-45.2); HEMOGLOBIN 12.1 GM/dL (10.7-15.3); LYMPH % 32.1 % (8-40); MCH 23.7 pg (25.7-33.7); MCHC 31.8 g/dl (32.0-36.0); MEAN CELL VOLUME 74.5 fl (80-96); MEAN PLT VOLUME 8.7 fl (7.5-11.1); MONO % 11.6 % (3.8-10.2); NEUT % 51.9 % (42.8-82.8); PLATELET COUNT 254 K/MM3 (134-434); RBC 5.13 M/mm3 (3.60-5.2); RDW 17.2 % (11.6-15.6); WHITE BLOOD COUNT 5.1 K/mm3 (4.0-10.0)
[2019-12-12 04:39] LABS: PH,URINE 5.5 (5.0-8.0); URINE APPEARANCE CLEAR; URINE BILIRUBIN NEGATIVE (NEGATIVE); URINE COLOR YELLOW; URINE GLUCOSE (UA) NEGATIVE (NEGATIVE); URINE KETONE NEGATIVE (NEGATIVE); URINE LEUK ESTERASE NEGATIVE (NEGATIVE); URINE NITRITE NEGATIVE (NEGATIVE); URINE PROTEIN NEGATIVE (NEGATIVE)
[2019-12-12 05:05] LABS: ALBUMIN 3.4 g/dl (3.4-5.0); ALK PHOS 102 U/L (45-117); ANION GAP 8 MMOL/L (8-16); BILIRUBIN,TOTAL 0.3 mg/dL (0.2-1); BLOOD UREA NITROGEN 10.9 mg/dL (7-18); CALCIUM 8.3 mg/dL (8.5-10.1); CHLORIDE 99 mmol/L (98-107); CO2 29 mmol/L (21-32); CREATININE 1.3 mg/dL (0.55-1.3); GLUCOSE,RANDOM 95 mg/dL (74-106); SGOT/AST 31 U/L (15-37); SGPT/ALT 19 U/L (13-61); SODIUM 136 mmol/L (136-145); TOT PROT 7.8 g/dl (6.4-8.2)
--- NOTE | 2019-12-12 05:06 | PDOC ---
Attending Attestation - Resident Resident Name: Kike Patel - ED Attending Attestation I have performed the following: I have examined & evaluated the patient, The case was reviewed & discussed with the resident, I agree w/resident's findings & plan, Exceptions are as noted - HPI HPI: 12/12/19 07:49 See resident HPI - Physicial Exam PE: 12/12/19 07:49 Agree with documented exam - Medical Decision Making 12/12/19 07:49 49F cp, wynn, urinary urgency f/u labs, ua, cxr, ekg dispo per clinical course, likely discharge Discharge - Discharge Information Problems reviewed: Yes Clinical Impression/Diagnosis: Atypical chest pain Headache Qualifiers: Headache type: unspecified Headache chronicity pattern: acute headache Intractability: not intractable Qualified Code(s): R51 - Headache Condition: Improved Disposition: HOME - Follow up/Referral Referrals: Pradeep Overton MD [Primary Care Provider] - - Patient Discharge Instructions Patient Printed Discharge Instructions: DI for Atypical Chest Pain Additional Instructions: Your workup did not show anything concerning Drink lots of water Take tylenol or ibuprofen if you have pain Follow up with your primary care doctor - Post Discharge Activity
--- NOTE | 2019-12-12 10:43 | EKG ---
Test Reason : Blood Pressure : / mmHG Vent. Rate : 063 BPM Atrial Rate : 063 BPM P-R Int : 162 ms QRS Dur : 080 ms QT Int : 430 ms P-R-T Axes : 027 006 037 degrees QTc Int : 440 ms NORMAL SINUS RHYTHM NORMAL ECG WHEN COMPARED WITH ECG OF 28-APR-2018 21:15, NO SIGNIFICANT CHANGE WAS FOUND Confirmed by EARNEST SAWYER MD ([id number]) on 12/12/2019 10:43:27 AM Referred By: Confirmed By:EARNEST SAWYER MD
== END 2019-12-12 06:32 | disposition home or self-care (01) ==
LOC: JER 02:37
PROC: 3E033NZ Introduction of Analgesics, Hypnotics, Sedatives into Peripheral Vein, Percutaneous Approach (ICD-10-PCS; principal; 2019-12-12)
PROC: 3E033GC Introduction of Other Therapeutic Substance into Peripheral Vein, Percutaneous Approach (ICD-10-PCS; 2019-12-12)
DX: R07.89 Other chest pain (principal); R51 Headache
CPT/HCPCS: 36415; 71045-TC-FY; 80053; 81003; 84484; 84703; 85025; 87086; 93005; 93010; 99285-25; J0131

== ENCOUNTER 2020-06-23 19:13 | Emergency (ER) | payer OTHER ==
[2020-06-23 19:42] VITALS: BMI 26.6
[2020-06-23 21:39] VITALS: BP 137/73; PULSE 75; TEMP 98
== END 2020-06-23 21:30 | disposition home or self-care (01) ==
LOC: JER 19:13
DX: I80.9 Phlebitis and thrombophlebitis of unspecified site (principal); M71.21 Synovial cyst of popliteal space [Baker], right knee
CPT/HCPCS: 93971-TC; 99284-25

== ENCOUNTER 2021-07-28 19:52 | Emergency (ER) | payer OTHER ==
[2021-07-28 20:07] VITALS: TEMP 98.1; BMI 28.0
[2021-07-28] MEDS ORDERED: ACETAMINOPHEN 1000 MG/100 ML BAG IVPB ONE (21:00)
[2021-07-28] MEDS ORDERED: METOCLOPRAMIDE HCL INJECTION 10 MG/2 ML VIAL IVPB ONE (21:00)
[2021-07-28] MEDS ORDERED: SODIUM CHLORIDE 0.9% 500 ML INFUS.BAG IV ONE (21:00)
[2021-07-28 22:12] LABS: BASO % 0.9 % (0-2.0); EOS % 3.5 % (0-4.5); HEMATOCRIT 35.4 % (32.4-45.2); HEMOGLOBIN 11.1 GM/dL (10.7-15.3); LYMPH % 24.3 % (8-40); MCH 23.9 pg (25.7-33.7); MCHC 31.2 g/dl (32.0-36.0); MEAN CELL VOLUME 76.4 fl (80-96); MEAN PLT VOLUME 8.4 fl (7.5-11.1); MONO % 8.4 % (3.8-10.2); NEUT % 62.9 % (42.8-82.8); PLATELET COUNT 353 10^3/uL (134-434); RBC 4.63 M/mm3 (3.60-5.2); RDW 19.3 % (11.6-15.6)
[2021-07-28 22:14] LABS: EPI CELLS 10 /uL (0-25.1); HYALINE CASTS 0 /uL (0-3.1); PH,URINE 5.5 (5.0-8.0); URINE APPEARANCE CLOUDY; URINE BACTERIA >9,000 /uL (0-1359); URINE BILIRUBIN NEGATIVE (NEGATIVE); URINE COLOR YELLOW; URINE GLUCOSE (UA) NEGATIVE (NEGATIVE); URINE KETONE NEGATIVE (NEGATIVE); URINE LEUK ESTERASE NEGATIVE (NEGATIVE); URINE NITRITE NEGATIVE (NEGATIVE); URINE PROTEIN NEGATIVE (NEGATIVE); URINE RBC 1 /uL (0-23.9); URINE UROBILINOGEN 0.2 mg/dL (0.2-1.0); URINE WBC 32 /uL (0-25.8)
[2021-07-28 22:23] LABS: INR 1.05 (0.83-1.09); PROTHROMBIN TIME (PATIENT) 12.1 SEC (9.7-13.0)
[2021-07-28 22:26] LABS: ACTIVATED PTT 32.3 SECONDS (25.2-36.5)
[2021-07-28 22:39] LABS: ALBUMIN 3.4 g/dl (3.4-5.0); BLOOD UREA NITROGEN 9.9 mg/dL (7-18); CALCIUM 8.9 mg/dL (8.5-10.1)
[2021-07-28 22:43] LABS: CREATININE 1.3 mg/dL (0.55-1.3)
[2021-07-28 22:45] LABS: BILIRUBIN,TOTAL 0.2 mg/dL (0.2-1); TOT PROT 7.3 g/dl (6.4-8.2)
[2021-07-28] MEDS ORDERED: ACETAMINOPHEN INJECTION 100 ML IVPB ONE (23:10)
[2021-07-28] MEDS ORDERED: METOCLOPRAMIDE HCL INJECTION 10 MG/2 ML VIAL ONE (23:10)
[2021-07-29] MEDS ORDERED: KETOROLAC TROMETHAMINE 15 MG/ML VIAL IVPUSH ONE (04:07)
[2021-07-29] MEDS ORDERED: KETOROLAC TROMETHAMINE 15 MG/ML VIAL ONE (04:12)
[2021-07-29 04:23] VITALS: BP 116/86; PULSE 70
== END 2021-07-29 04:27 | disposition home or self-care (01) ==
LOC: JER 19:52
PROC: 3E0333Z Introduction of Anti-inflammatory into Peripheral Vein, Percutaneous Approach (ICD-10-PCS; principal; 2021-07-28)
PROC: 3E0333Z Introduction of Anti-inflammatory into Peripheral Vein, Percutaneous Approach (ICD-10-PCS; 2021-07-28)
PROC: 3E033GC Introduction of Other Therapeutic Substance into Peripheral Vein, Percutaneous Approach (ICD-10-PCS; 2021-07-28)
DX: R60.0 Localized edema (principal); R10.9 Unspecified abdominal pain
CPT/HCPCS: 36415; 71275-TC; 74177-TC; 80053; 81003; 83880; 84484; 84703; 85025; 85610; 85730; 87086; 87186; 93005; 93010; 93970-TC; 99285-25